=== PATIENT | male | born 1945 ===

== ENCOUNTER 2020-07-01 12:04 | Inpatient (IN) | payer MEDICARE ==
[2020-07-01] MEDS ORDERED: LORazepam 2 MG/ML VIAL IM PRN (12:11)
[2020-07-01] MEDS ORDERED: HALOPERIDOL LACTATE 5 MG/1 ML INJ IM PRN (12:11)
[2020-07-01] MEDS ORDERED: MELATONIN 5 MG TAB PO PRN (12:11)
[2020-07-01] MEDS: traZODone 50 MG TAB PO SCH (21:45)
--- NOTE | 2020-07-02 07:47 | History and Physical Report ---
GP History & Physical - History of Present Illness Date of admission: 07/01/20 Date of Examination: 07/02/20 Reason for Admission: Impaired reality testing, Psychopathology interference History of Present Illness: Nurse Admisison Note: Precipitating behavior that initiated intake and admission: [ Pt having a loaded gun and pointing it after watching TV and started saying "someone is stealing in this house. Per referral source, pt stated "white supremacist are after me." Per to referral source, pt was seen last week by his Psychiatrist when adjustment was made to his medication and has since been acting strangely with increasingly paranoia behavior, talking to self or sister that does present, and became extremely agitated.] Pt sitting calmly in the activity room. Was cooperative to be assessed. A&OX4 upon assessment, but remains paranoid as he refused to sign anything. Denies any attempt to hurt . "I was just taking care of my stuff." Denies SI or HI. No hallucinations observed. Scored 27 om Mini Mental Exam. Gait unstable and pt ambulates with cane, w/c offered and accepted while cane is kept away for safety. Unexplained multiple bruise noted to bilateral forearms and left abdomen. Denies pain. Pt noted with barrel chest and trunk asymmetric with LE. Bilateral toes are deformed with wound noted to left second toe covered with bandage. Reports hx/o scoliosis with surgical repair "several years ago." Old scar stretched from the back of the nect to lumbar area noted. Pt also has knee replacement to right knee with a noticeable scar in place. Pt presents with full lower and upper dentures. VS stable. No acute distress observed and none reported. Will continue to monitor closely for safety. HPI Patient is a retired male who resides with and has children with non specific psychiatric diagnosis and past Medical History of rheumatoid Arthritis, DM and HTN who presented to [facility] ED by EMS with chief complaints of paranoid behavior and endangerment of partner, as a he was found wandering Gun at home, says he was suspecting white supremacist. Patient kept assuming someone was at home. According to [facility] Nurse Collateral information, Pt has been having psychiatric issues, was recently seen by his psychiatrist, a recent medication starting with L was started and since starting the medication, his paranoid has worsened with strange bizzare behaviors at home. According to the patient, he reports not remembering much about the day he was taking to the hospital but admit to having issues with at home, whcih were age related issues since kids had moved out and they were trying to figure where to move to because they have been having lots of difficulties adjusting to the new norm, he claims it was never physical and that was also part of why they were both seeing a psychiatrist. He denies wandering Gun, says he only wanted to clean it and had no intention of using it or saw anyone at home. Prior to walking in room, I found patient talking to self and looking towards the ceiling, pt claims its because he has not brushed his teeth. PAST PSYCHIATRIC HISTORY: Diagnoses: Unknown diagnosis Suicide attempts or Self-harm behavior: None reported Prior psychiatric hospitalizations: none reported Substance Abuse history: None reported Previous psychiatric medications tried: Yes, meds unknown Outpatient treatment: Yes PAST MEDICAL HISTORY: DM, HTN and RA Family Psychiatric History: None reported or documented SOCIAL HISTORY Marital Status: Living Arrangements: with Employment Status: retired Access to guns/weapons: Yes Education: College History of Abuse: none reported Legal History: none reported REVIEW OF SYSTEMS ROS cannot be reliably obtained from the patient due to her confusion and somnolence. REVIEW OF SYSTEMS Constitutional: Negative for weight loss ENT: Negative for stridor Respiratory: Negative for cough or hemoptysis All other systems reviewed and are negative MENTAL STATUS EXAMINATION General Appearance and Behavior: Age appropriate, good hygiene, wearing appropriate clothes, lying in bed, good eye contact, cooperative polite with questioning. Cooperation: Participating/engaged Psychomotor Behavior: unremarkable and within normal limits Mood: Good Affect and affective range: decreased range Thought Process: Illogical, Thought Content: Hallucinations Phobia and Paranoid Speech: Normal volume, Regular rate and rhythm Intellectual Functioning: Average Suicidal Ideation: Denies SI Homicidal Ideation: Denies HI Impulse Control: Impaired Insight and Judgment: Limited insight and judgment Memory:Prospective memory impaired Attention: Normal Orientation: Alert, oriented, Assessment and Plan - Psychiatric problem (1) Schizophrenia, paranoid type Current Visit: Yes Status: Acute Treatment Plan Stated on Olazanpine and Valproate 125 mg BID Patient will be admitted for inpatient psychiatric evaluation, medication adjustment and close monitoring The patient's behavior, mood, sleep and appetite will be closely monitored. Patient will be enrolled in individual and group therapeutic sessions and encouraged to attend. Patient will be provided with a safe and structured environment. Patient's physical health needs will be addressed by the Hospitalist. Hospitalist Consulted Labs including CBC, CMP, Lipid profile and Hemoglobin A1C ordered Social Assessment will be completed and the Cloud Systems Administrator will work with patient and family to ensure a suitable and safe disposition Medication adjustment will be made as clinically indicated Usual Wellness Catholic/Preservation: - Start Trazodone 50 mg po QHS & 50 mg po QHS PRN between 10 PM & 2 AM for insomnia - Start Melatonin 5 mg po QHS to promote circadian rhythm - Start [place]-3 for brain health, reduce impulsivity, and as adjunctive treatment for mood disorder, continue upon discharge given overall benefits. - Start B1 prophylaxis with 200 mg po for 5 days The patient agreed on the treatment plan, understood the risk, benefit, alternative treatment, potential consequence of no treatment, and gave informed consent. Initial Certification Inpatient psych services: I certify that the inpatient psychiatric services are required for treatment that could reasonably be expected to improve the patient's condition. Estimated days: 7 Post hospital care: primary care provider, psychiatric provider Legal Status: Voluntary Patient Problems: Current Active Problems Schizophrenia, paranoid type (Acute) Reaction to Hospitalization: Accepting Medications and Allergies Allergies Allergy/AdvReac Type Severity Reaction Status Date / Time hydroxyzine [From Vistaril] Allergy Unknown Unverified 07/01/20 13:17 meperidine Allergy Unknown Unverified 07/01/20 13:14 Home Medications Medication Instructions Recorded Confirmed Last Taken Type Aspirin EC 81 mg PO BID 07/01/20 07/01/20 Unknown History Duloxetine HCl 60 mg PO DAILY 07/01/20 07/01/20 Unknown History Folic Acid 1 mg PO DAILY 07/01/20 07/01/20 Unknown History Insulin Glargine 20 units SQ QHS 07/01/20 07/01/20 Unknown History Levothyroxine Sodium 112 mcg PO DAILY 07/01/20 07/01/20 Unknown History Meloxicam 15 mg PO DAILY 07/01/20 07/01/20 Unknown History Morphine Sulfate 15 mg PO QID 07/01/20 07/01/20 Unknown History Prednisone [predniSONE (Alana) ER 4 mg PO QDAY 07/01/20 07/01/20 Unknown History TAB] Prevacid 30 mg PO DAILY 07/01/20 07/01/20 Unknown History Quetiapine Fumarate 25 mg PO DAILY 07/01/20 07/01/20 Unknown History Sennosides 8.6 mg PO DAILY 07/01/20 07/01/20 Unknown History Xanax TAB 0.5 mg PO TID 07/01/20 07/01/20 Unknown History Active Meds: Active Medications Haloperidol Lactate (Haldol) 5 mg IM ONCE PRN PRN Reason: Agitation Lorazepam (Ativan) 1 mg IM Q4HR PRN PRN Reason: Agitation Melatonin (Melatonin) 5 mg PO QHS PRN PRN Reason: Sleep Trazodone HCl (Desyrel) 50 mg PO QHS [facility] Last Admin: 07/01/20 21:45 Dose: 50 mg Documented by: Results - Results Labs/Vitals: Laboratory Last Values POC Glucose 122 (70-105) H 07/01/20 20:12 Last Vital Signs Temp 97.4 F L 07/01/20 22:00 Pulse 71 07/01/20 22:00 Resp 18 07/01/20 22:00 BP 112/75 07/01/20 22:00 Pulse Ox 94 07/01/20 22:00 Physical Examination - Constitutional Vitals: Vital Signs Temp Pulse Resp BP Pulse Ox 97.4 F L 71 18 112/75 94 07/01/20 22:00 07/01/20 22:00 07/01/20 22:00 07/01/20 22:00 07/01/20 22:00 Temperature -Last 24 Hours Temperature 97.4 F Mental Status Exam - Vital signs Last Vital Signs Temp 97.4 F L 07/01/20 22:00 Pulse 71 07/01/20 22:00 Resp 18 07/01/20 22:00 BP 112/75 07/01/20 22:00 Pulse Ox 94 07/01/20 22:00 Assessment and Plan - Psychiatric problem (1) Schizophrenia, paranoid type Current Visit: Yes Status: Acute Physician Certification - Certification Statement Physician Certification Statement: This is an acknowledgement statement that SHANEKA JEAN-BAPTISTE is a 74 year old M who requires inpatient psychiatric admission for treatment which could reasonably be expected to improve the patient's condition for Estimated period of time patient will need to remain in the hospital: [ ] Plan for post-hospital care: [ ]
[2020-07-02 09:54] LABS: Basophils # (Auto) 0.1 K/mm3 (0.0-0.1); Basophils % (Auto) 0.5 % (0.0-1.8); Eosinophils % (Auto) 0.3 % (0.0-4.3); Hematocrit 44.5 % (35.5-45.6); Hemoglobin 15.1 gm/dl (11.8-15.2); Lymphocytes # (Auto) 1.7 K/mm3 (1.2-5.4); Lymphocytes % (Auto) 15.5 % (13.4-35.0); Mean Corpuscular HGB Conc 34 % (32-34); Mean Corpuscular Volume 102 fl (84-94); Monocytes # (Auto) 0.6 K/mm3 (0.0-0.8); Monocytes % (Auto) 5.4 % (0.0-7.3); Platelet Count 170 K/mm3 (140-440); Red Blood Count 4.38 M/mm3 (3.65-5.03); Red Cell Distribution Width 14.3 % (13.2-15.2)
[2020-07-02 10:13] LABS: Alanine Aminotransferase 21 units/L (7-56); Albumin 4.2 g/dL (3.9-5); BUN/Creatinine Ratio 28; Blood Urea Nitrogen 25 mg/dL (9-20); Calcium 9.4 mg/dL (8.4-10.2); HDL Cholesterol 75 mg/dL (40-59); Hemolysis Index 8; LDL Cholesterol,Direct 80 mg/dL (50-130)
[2020-07-02] MEDS: VALPROIC ACID 250 MG/5 ML ORAL LIQD PO SCH ×2 (10:44→21:57)
--- NOTE | 2020-07-02 15:58 | Consultation ---
History of Present Illness - Reason for Consult Consult date: 07/02/20 Medical management - History of Present Illness HPI as per psychiatry Patient is a retired male who resides with and has children with non specific psychiatric diagnosis and past Medical History of rh eumatoid Arthritis, DM and HTN who presented to [facility] ED by EMS with chief complaints of paranoid behavior and endangerment of partner, as a he was found wandering Gun at home, says he was suspecting white supremacist. Patient kept assuming someone was at home. According to [facility] Nurse Collateral information, Pt has been having psychiatric issues, was recently seen by his psychiatrist, a recent medication starting with L was started and since starting the medication, his paranoid has worsened with strange bizzare behaviors at home. According to the patient, he reports not remembering much about the day he was taking to the hospital but admit to having issues with at home, whcih were age related issues since kids had moved out and they were trying to figure where to move to because they have been having lots of difficulties adjusting to the new norm, he claims it was never physical and that was also part of why they were both seeing a psychiatrist. He denies wandering Gun, says he only wanted to clean it and had no intention of using it or saw anyone at home. I saw and examined patient as bedside. He does not know list of his medications. Past History Past Medical History: diabetes, hypertension, other (RA) Medications and Allergies Allergies Allergy/AdvReac Type Severity Reaction Status Date / Time hydroxyzine [From Vistaril] Allergy Unknown Unverified 07/01/20 13:17 meperidine Allergy Unknown Unverified 07/01/20 13:14 Home Medications Medication Instructions Recorded Confirmed Last Taken Type Aspirin EC 81 mg PO BID 07/01/20 07/01/20 Unknown History Duloxetine HCl 60 mg PO DAILY 07/01/20 07/01/20 Unknown History Folic Acid 1 mg PO DAILY 07/01/20 07/01/20 Unknown History Insulin Glargine 20 units SQ QHS 07/01/20 07/01/20 Unknown History Levothyroxine Sodium 112 mcg PO DAILY 07/01/20 07/01/20 Unknown History Meloxicam 15 mg PO DAILY 07/01/20 07/01/20 Unknown History Morphine Sulfate 15 mg PO QID 07/01/20 07/01/20 Unknown History Prednisone [predniSONE (Alana) ER 4 mg PO QDAY 07/01/20 07/01/20 Unknown History TAB] Prevacid 30 mg PO DAILY 07/01/20 07/01/20 Unknown History Quetiapine Fumarate 25 mg PO DAILY 07/01/20 07/01/20 Unknown History Sennosides 8.6 mg PO DAILY 07/01/20 07/01/20 Unknown History Xanax TAB 0.5 mg PO TID 07/01/20 07/01/20 Unknown History Active Meds: Active Medications Haloperidol Lactate (Haldol) 5 mg IM ONCE PRN PRN Reason: Agitation Lorazepam (Ativan) 1 mg IM Q4HR PRN PRN Reason: Agitation Melatonin (Melatonin) 5 mg PO QHS PRN PRN Reason: Sleep Olanzapine (Zyprexa) 5 mg PO QHS [facility] Trazodone HCl (Desyrel) 50 mg PO QHS [facility] Last Admin: 07/01/20 21:45 Dose: 50 mg Documented by: Valproic Acid (Depakene Liq) 125 mg PO BID [facility] Last Admin: 07/02/20 10:44 Dose: 125 mg Documented by: Review of Systems All systems: negative (None) Exam - Constitutional Vitals: Temp Pulse Resp BP Pulse Ox 97.5 F L 113 H 18 112/61 88 07/02/20 07:27 07/02/20 07:27 07/02/20 07:27 07/02/20 07:27 07/02/20 07:27 General appearance: Present: no acute distress, well-nourished - EENT Eyes: Present: PERRL ENT: hearing intact, clear oral mucosa - Neck Neck: Present: supple, normal ROM - Respiratory Respiratory effort: normal Respiratory: bilateral: CTA - Cardiovascular Heart Sounds: Present: S1 & S2. Absent: rub, click - Extremities Extremities: pulses symmetrical, No edema Peripheral Pulses: within normal limits - Abdominal General gastrointestinal: Present: soft, non-tender, non-distended, normal bowel sounds Male genitourinary: Present: normal - Integumentary Integumentary: Present: clear, warm, dry - Musculoskeletal Musculoskeletal: gait normal, strength equal bilaterally - Psychiatric Psychiatric: appropriate mood/affect, intact judgment & insight - Neurologic Neurologic: CNII-XII intact, moves all extremities Results - Labs CBC & Chem 7: 07/02/20 09:40 07/02/20 09:40 Labs: Abnormal lab results 07/01/20 07/02/20 07/02/20 Range/Units 20:12 08:01 09:40 MCV 102 H (84-94) fl MCH 34 H (28-32) pg Seg Neutrophils % 78.3 H (40.0-70.0) % Seg Neutrophils # 8.4 H (1.8-7.7) K/mm3 Chloride (98-107) mmol/L Carbon Dioxide (22-30) mmol/L BUN (9-20) mg/dL Glucose (75-100) mg/dL POC Glucose 122 H 154 H (70-105) Hemoglobin A1c (4-6) % Total Bilirubin (0.1-1.2) mg/dL Total Protein (6.3-8.2) g/dL HDL Cholesterol (40-59) mg/dL TSH (0.270-4.200) mlU/mL Free T4 (0.76-1.46) ng/dL 07/02/20 07/02/20 07/02/20 Range/Units 09:40 09:40 09:40 MCV (84-94) fl MCH (28-32) pg Seg Neutrophils % (40.0-70.0) % Seg Neutrophils # (1.8-7.7) K/mm3 Chloride 95.6 L (98-107) mmol/L Carbon Dioxide 20 L (22-30) mmol/L BUN 25 H (9-20) mg/dL Glucose 264 H (75-100) mg/dL POC Glucose (70-105) Hemoglobin A1c 9.5 H (4-6) % Total Bilirubin 1.30 H (0.1-1.2) mg/dL Total Protein 6.0 L (6.3-8.2) g/dL HDL Cholesterol 75 H (40-59) mg/dL TSH 0.045 L (0.270-4.200) mlU/mL Free T4 (0.76-1.46) ng/dL 07/02/20 07/02/20 Range/Units 10:46 11:58 MCV (84-94) fl MCH (28-32) pg Seg Neutrophils % (40.0-70.0) % Seg Neutrophils # (1.8-7.7) K/mm3 Chloride (98-107) mmol/L Carbon Dioxide (22-30) mmol/L BUN (9-20) mg/dL Glucose (75-100) mg/dL POC Glucose 175 H (70-105) Hemoglobin A1c (4-6) % Total Bilirubin (0.1-1.2) mg/dL Total Protein (6.3-8.2) g/dL HDL Cholesterol (40-59) mg/dL TSH (0.270-4.200) mlU/mL Free T4 1.75 H (0.76-1.46) ng/dL Assessment and Plan - Patient Problems (1) Schizophrenia, paranoid type Current Visit: Yes Status: Acute Plan to address problem: Management as per primary team (2) Hypothyroidism (acquired) Current Visit: Yes Status: Acute Plan to address problem: Continue synthroid. Check TSH (3) Diabetes mellitus Current Visit: Yes Status: Acute Plan to address problem: Start sliding scale insulin Check HbA1c (4) Rheumatoid arthritis Current Visit: Yes Status: Acute Plan to address problem: Continue low dose prednisone for now. 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
[2020-07-02] MEDS ORDERED: DEXTROSE 50% IN WATER (25GM) 50 ML SYRINGE IV PRN (16:04)
[2020-07-02] MEDS: INSULIN LISPRO 100 UNIT/ML VIAL 3 mL SUB-Q SCH (16:39)
[2020-07-02] MEDS: traZODone 50 MG TAB PO SCH (21:58)
[2020-07-02] MEDS: ASPIRIN EC 81 MG TAB PO SCH (21:58)
[2020-07-03] MEDS ORDERED: LEVOTHYROXINE 150 MCG TAB PO SCH (06:00)
[2020-07-03] MEDS: LEVOTHYROXINE 112 MCG TAB PO SCH (06:27)
--- NOTE | 2020-07-03 08:25 | Progress Note ---
Subjective Date of service: 07/03/20 Principal diagnosis: Schizophrenia Subjective Comment: The patient's medical record was reviewed and the patient's progress was discussed with the nursing staff. The nurse note states the patient spent last evening the patient spent the evening in bed. He presents as sad and depressed. He is pleasant on approach. The patient denies si/hi/ah/vh. During my interview with the patient this morning, he is lying in bed. He is a/o x 2. He says he was admitted into the hospital for "observation." The patient says "I was having problems with my ." He then says "it was just a typical fight. But I wasn't that upset." He denies SI/HI. He also denies hallucinations of any kind. When walking back by the room, I observed the patient talking to himself. When going in the room to see who the patient was talking to, he presented as paranoid. The patient seemed jumpy and asked "was someone here earlier." Reason for continued inpatient treatment: The patient presents as depressed, having hallucinations and episodes of paranoia that needs inpatient treatment due to failure of outpatient stabilization. REVIEW OF SYSTEMS Constitutional: Negative for weight loss ENT: Negative for stridor Respiratory: Negative for cough or hemoptysis All other systems reviewed and are negative MENTAL STATUS EXAMINATION General Appearance and Behavior: Age appropriate, good hygiene, wearing a ppropriate clothes, lying in bed, good eye contact, cooperative polite with questioning. Cooperation: Participating/engaged Psychomotor Behavior: unremarkable and within normal limits Mood: "okay" Affect and affective range: decreased range Thought Process: Illogical, Thought Content: Hallucinations Speech: Normal volume, Regular rate and rhythm Intellectual Functioning: Average Suicidal Ideation: Denies SI Homicidal Ideation: Denies HI Hallucinations: Yes, auditory Delusions: None elicited Impulse Control: Impaired Insight and Judgment: Limited insight and judgment Memory:Prospective memory impaired Attention: Normal Orientation: Alert, oriented, Assessment and Plan - Psychiatric problem (1) Schizophrenia, paranoid type Current Visit: Yes Status: Acute Treatment Plan Stated on Olazanpine and Valproate 125 mg BID Patient will be admitted for inpatient psychiatric evaluation, medication adjustment and close monitoring The patient's behavior, mood, sleep and appetite will be closely monitored. Patient will be enrolled in individual and group therapeutic sessions and encouraged to attend. Patient will be provided with a safe and structured environment. Patient's physical health needs will be addressed by the Hospitalist. Hospitalist Consulted Labs including CBC, CMP, Lipid profile and Hemoglobin A1C ordered Social Assessment will be completed and the Online Media Director will work with patient and family to ensure a suitable and safe disposition Medication adjustment will be made as clinically indicated Increased Olanzapine 7.5mg po daily Usual Wellness Spiritism/Preservation: - Start Trazodone 50 mg po QHS & 50 mg po QHS PRN between 10 PM & 2 AM for insomnia - Start Melatonin 5 mg po QHS to promote circadian rhythm - Start [place]-3 for brain health, reduce impulsivity, and as adjunctive treatm ent for mood disorder, continue upon discharge given overall benefits. - Start B1 prophylaxis with 200 mg po for 5 days The patient agreed on the treatment plan, understood the risk, benefit, altern ative treatment, potential consequence of no treatment, and gave informed consent. Estimated days: 5 Post hospital care: primary care provider, psychiatric provider Medications and Allergies Allergies Allergy/AdvReac Type Severity Reaction Status Date / Time hydroxyzine [From Vistaril] Allergy Unknown Unverified 07/01/20 13:17 meperidine Allergy Unknown Unverified 07/01/20 13:14 Home Medications Medication Instructions Recorded Confirmed Last Taken Type Aspirin EC 81 mg PO BID 07/01/20 07/01/20 Unknown History Duloxetine HCl 60 mg PO DAILY 07/01/20 07/01/20 Unknown History Folic Acid 1 mg PO DAILY 07/01/20 07/01/20 Unknown History Insulin Glargine 20 units SQ QHS 07/01/20 07/01/20 Unknown History Levothyroxine Sodium 112 mcg PO DAILY 07/01/20 07/01/20 Unknown History Meloxicam 15 mg PO DAILY 07/01/20 07/01/20 Unknown History Morphine Sulfate 15 mg PO QID 07/01/20 07/01/20 Unknown History Prednisone [predniSONE (Alana) ER 4 mg PO QDAY 07/01/20 07/01/20 Unknown History TAB] Prevacid 30 mg PO DAILY 07/01/20 07/01/20 Unknown History Quetiapine Fumarate 25 mg PO DAILY 07/01/20 07/01/20 Unknown History Sennosides 8.6 mg PO DAILY 07/01/20 07/01/20 Unknown History Xanax TAB 0.5 mg PO TID 07/01/20 07/01/20 Unknown History Active Meds: Active Medications Aspirin (Halfprin Ec) 81 mg PO BID [facility] Last Admin: 07/02/20 21:58 Dose: 81 mg Documented by: Dextrose (D50w (25gm) Syringe) 50 ml IV Q30MIN PRN; Protocol PRN Reason: Hypoglycemia Haloperidol Lactate (Haldol) 5 mg IM ONCE PRN PRN Reason: Agitation Insulin Human Lispro (Humalog) 0 unit SUB-Q AC [facility]; Protocol Last Admin: 07/02/20 16:39 Dose: 4 unit Documented by: Levothyroxine Sodium (Synthroid) 112 mcg PO DAILY@0600 [facility] Last Admin: 07/03/20 06:27 Dose: 112 mcg Documented by: Lorazepam (Ativan) 1 mg IM Q4HR PRN PRN Reason: Agitation Melatonin (Melatonin) 5 mg PO QHS PRN PRN Reason: Sleep Olanzapine (Zyprexa) 5 mg PO QHS [facility] Last Admin: 07/02/20 21:58 Dose: 5 mg Documented by: Prednisone (Prednisone) 4 mg FEEDTUBE QDAY [facility] Trazodone HCl (Desyrel) 50 mg PO QHS [facility] Last Admin: 07/02/20 21:58 Dose: 50 mg Documented by: Valproic Acid (Depakene Liq) 125 mg PO BID [facility] Last Admin: 07/02/20 21:57 Dose: 125 mg Documented by: Results - Results Labs/Vitals: Laboratory Last Values WBC 10.7 K/mm3 (4.5-11.0) 07/02/20 09:40 RBC 4.38 M/mm3 (3.65-5.03) 07/02/20 09:40 Hgb 15.1 gm/dl (11.8-15.2) 07/02/20 09:40 Hct 44.5 % (35.5-45.6) 07/02/20 09:40 MCV 102 fl (84-94) H 07/02/20 09:40 MCH 34 pg (28-32) H 07/02/20 09:40 MCHC 34 % (32-34) 07/02/20 09:40 RDW 14.3 % (13.2-15.2) 07/02/20 09:40 Plt Count 170 K/mm3 (140-440) 07/02/20 09:40 Lymph % (Auto) 15.5 % (13.4-35.0) 07/02/20 09:40 [place] % (Auto) 5.4 % (0.0-7.3) 07/02/20 09:40 Eos % (Auto) 0.3 % (0.0-4.3) 07/02/20 09:40 Baso % (Auto) 0.5 % (0.0-1.8) 07/02/20 09:40 Lymph # (Auto) 1.7 K/mm3 (1.2-5.4) 07/02/20 09:40 [place] # (Auto) 0.6 K/mm3 (0.0-0.8) 07/02/20 09:40 Eos # (Auto) 0.0 K/mm3 (0.0-0.4) 07/02/20 09:40 Baso # (Auto) 0.1 K/mm3 (0.0-0.1) 07/02/20 09:40 Seg Neutrophils % 78.3 % (40.0-70.0) H 07/02/20 09:40 Seg Neutrophils # 8.4 K/mm3 (1.8-7.7) H 07/02/20 09:40 Sodium 137 mmol/L (137-145) 07/02/20 09:40 Potassium 4.8 mmol/L (3.6-5.0) 07/02/20 09:40 Chloride 95.6 mmol/L (98-107) L 07/02/20 09:40 Carbon Dioxide 20 mmol/L (22-30) L 07/02/20 09:40 Anion Gap 26 mmol/L 07/02/20 09:40 BUN 25 mg/dL (9-20) H 07/02/20 09:40 Creatinine 0.9 mg/dL (0.8-1.3) 07/02/20 09:40 Estimated GFR > 60 ml/min 07/02/20 09:40 BUN/Creatinine Ratio 28 % 07/02/20 09:40 Glucose 264 mg/dL (75-100) H 07/02/20 09:40 POC Glucose 254 (70-105) H 07/03/20 07:27 Hemoglobin A1c 9.5 % (4-6) H 07/02/20 09:40 Calcium 9.4 mg/dL (8.4-10.2) 07/02/20 09:40 Total Bilirubin 1.30 mg/dL (0.1-1.2) H 07/02/20 09:40 AST 32 units/L (5-40) 07/02/20 09:40 ALT 21 units/L (7-56) 07/02/20 09:40 Alkaline Phosphatase 85 units/L (35-129) 07/02/20 09:40 Total Protein 6.0 g/dL (6.3-8.2) L 07/02/20 09:40 Albumin 4.2 g/dL (3.9-5) 07/02/20 09:40 Albumin/Globulin Ratio 2.3 % 07/02/20 09:40 Triglycerides 120 mg/dL (2-149) 07/02/20 09:40 Cholesterol 165 mg/dL (50-199) 07/02/20 09:40 LDL Cholesterol Direct 80 mg/dL (50-130) 07/02/20 09:40 HDL Cholesterol 75 mg/dL (40-59) H 07/02/20 09:40 Cholesterol/HDL Ratio 2.20 % 07/02/20 09:40 TSH 0.045 mlU/mL (0.270-4.200) L 07/02/20 09:40 Free T4 1.75 ng/dL (0.76-1.46) H 07/02/20 10:46 Last Vital Signs Temp 98.1 F 07/02/20 20:51 Pulse 100 H 07/02/20 19:21 Resp 18 07/02/20 20:51 BP 131/70 07/02/20 19:21 Pulse Ox 95 07/02/20 19:21
[2020-07-03] MEDS: INSULIN LISPRO 100 UNIT/ML VIAL 3 mL SUB-Q SCH ×3 (09:04→16:35)
[2020-07-03] MEDS: ASPIRIN EC 81 MG TAB PO SCH (09:57)
[2020-07-03] MEDS: VALPROIC ACID 250 MG/5 ML ORAL LIQD PO SCH ×2 (09:57→21:39)
[2020-07-03] MEDS: predniSONE 5 MG/5 ML ORAL LIQUID FEEDTUBE SCH (09:57)
[2020-07-03] MEDS ORDERED: predniSONE 5 MG TAB PO SCH (10:00)
[2020-07-03 15:13] LABS: ABG Base Excess -8.2 mmol/L (-2.0-3.0); ABG HCO3 15.2 mmol/L (20.0-26.0); ABG Methemoglobin 0.6 % (0.0-1.5); ABG Oxygen Saturation 98.7 % (95.0-99.0); ABG PCO2 26.4 mm Hg; ABG PH 7.378 pH Units (7.350-7.450)
[2020-07-03] MEDS ORDERED: INSULIN LISPRO 100 UNIT/ML VIAL 3 mL SUB-Q ONE (15:15)
--- NOTE | 2020-07-03 15:29 | Progress Note ---
Assessment and Plan - Patient Problems (1) Schizophrenia, paranoid type Current Visit: Yes Status: Acute Plan to address problem: Management as per primary team (2) Hypothyroidism (acquired) Current Visit: Yes Status: Acute Plan to address problem: Continue synthroid. Check TSH (3) Diabetes mellitus Current Visit: Yes Status: Acute Plan to address problem: Continue sliding scale insulin Added lantus Check HbA1c (4) Rheumatoid arthritis Current Visit: Yes Status: Acute Plan to address problem: Continue low dose prednisone for now. Methotrexate weekly (5) HTN (hypertension) Current Visit: Yes Status: Acute Plan to address problem: Lisinopril 5 mg daily (6) Acute respiratory failure with hypoxia Current Visit: Yes Status: Acute Plan to address problem: Continue oxygen supplementation Chest xray ordered. Check labs - cmp, ddimer History Interval history: Patient got slightly short of breath this PM, Ordered chest xray, ABG, CBC, CMP. Blood glucose is elevated. Added lantus. Called spouse and got his home medications. Hospitalist Physical - Constitutional Vitals: Temp Pulse Resp BP Pulse Ox 98.1 F 100 H 18 131/70 95 07/02/20 20:51 07/02/20 19:21 07/02/20 20:51 07/02/20 19:21 07/02/20 19:21 General appearance: Present: no acute distress, well-nourished - EENT Eyes: Present: PERRL - Respiratory Respiratory: bilateral: diminished - Cardiovascular Rhythm: regular Heart Sounds: Present: S1 & S2 - Abdominal General gastrointestinal: soft, non-tender, non-distended, normal bowel sounds - Psychiatric Psychiatric: appropriate mood/affect - Neurologic Neurologic: CNII-XII intact Results - Labs CBC & Chem 7: 07/02/20 09:40 07/02/20 09:40 Labs: Laboratory Last Values WBC 10.7 K/mm3 (4.5-11.0) 07/02/20 09:40 RBC 4.38 M/mm3 (3.65-5.03) 07/02/20 09:40 Hgb 15.1 gm/dl (11.8-15.2) 07/02/20 09:40 Hct 44.5 % (35.5-45.6) 07/02/20 09:40 MCV 102 fl (84-94) H 07/02/20 09:40 MCH 34 pg (28-32) H 07/02/20 09:40 MCHC 34 % (32-34) 07/02/20 09:40 RDW 14.3 % (13.2-15.2) 07/02/20 09:40 Plt Count 170 K/mm3 (140-440) 07/02/20 09:40 Lymph % (Auto) 15.5 % (13.4-35.0) 07/02/20 09:40 [place] % (Auto) 5.4 % (0.0-7.3) 07/02/20 09:40 Eos % (Auto) 0.3 % (0.0-4.3) 07/02/20 09:40 Baso % (Auto) 0.5 % (0.0-1.8) 07/02/20 09:40 Lymph # (Auto) 1.7 K/mm3 (1.2-5.4) 07/02/20 09:40 [place] # (Auto) 0.6 K/mm3 (0.0-0.8) 07/02/20 09:40 Eos # (Auto) 0.0 K/mm3 (0.0-0.4) 07/02/20 09:40 Baso # (Auto) 0.1 K/mm3 (0.0-0.1) 07/02/20 09:40 Seg Neutrophils % 78.3 % (40.0-70.0) H 07/02/20 09:40 Seg Neutrophils # 8.4 K/mm3 (1.8-7.7) H 07/02/20 09:40 ABG pH 7.378 pH Units (7.350-7.450) 07/03/20 14:35 ABG pCO2 26.4 mm Hg 07/03/20 14:35 ABG pO2 137.0 mm Hg (80.0-90.0) H 07/03/20 14:35 ABG HCO3 15.2 mmol/L (20.0-26.0) L 07/03/20 14:35 ABG O2 Saturation 98.7 % (95.0-99.0) 07/03/20 14:35 ABG O2 Content 19.9 (0.0-44) 07/03/20 14:35 ABG Base Excess -8.2 mmol/L (-2.0-3.0) L 07/03/20 14:35 ABG Hemoglobin 14.5 gm/dl (14.0-18.0) 07/03/20 14:35 ABG Carboxyhemoglobin 1.5 % (0.0-5.0) 07/03/20 14:35 ABG Methemoglobin 0.6 % (0.0-1.5) 07/03/20 14:35 Oxyhemoglobin 96.5 % (95.0-99.0) 07/03/20 14:35 FiO2 40 % 07/03/20 14:35 Sodium 137 mmol/L (137-145) 07/02/20 09:40 Potassium 4.8 mmol/L (3.6-5.0) 07/02/20 09:40 Chloride 95.6 mmol/L (98-107) L 07/02/20 09:40 Carbon Dioxide 20 mmol/L (22-30) L 07/02/20 09:40 Anion Gap 26 mmol/L 07/02/20 09:40 BUN 25 mg/dL (9-20) H 07/02/20 09:40 Creatinine 0.9 mg/dL (0.8-1.3) 07/02/20 09:40 Estimated GFR > 60 ml/min 07/02/20 09:40 BUN/Creatinine Ratio 28 % 07/02/20 09:40 Glucose 264 mg/dL (75-100) H 07/02/20 09:40 POC Glucose 407 (70-105) H 07/03/20 13:56 Hemoglobin A1c 9.5 % (4-6) H 07/02/20 09:40 Calcium 9.4 mg/dL (8.4-10.2) 07/02/20 09:40 Total Bilirubin 1.30 mg/dL (0.1-1.2) H 07/02/20 09:40 AST 32 units/L (5-40) 07/02/20 09:40 ALT 21 units/L (7-56) 07/02/20 09:40 Alkaline Phosphatase 85 units/L (35-129) 07/02/20 09:40 Total Protein 6.0 g/dL (6.3-8.2) L 07/02/20 09:40 Albumin 4.2 g/dL (3.9-5) 07/02/20 09:40 Albumin/Globulin Ratio 2.3 % 07/02/20 09:40 Triglycerides 120 mg/dL (2-149) 07/02/20 09:40 Cholesterol 165 mg/dL (50-199) 07/02/20 09:40 LDL Cholesterol Direct 80 mg/dL (50-130) 07/02/20 09:40 HDL Cholesterol 75 mg/dL (40-59) H 07/02/20 09:40 Cholesterol/HDL Ratio 2.20 % 07/02/20 09:40 TSH 0.045 mlU/mL (0.270-4.200) L 07/02/20 09:40 Free T4 1.75 ng/dL (0.76-1.46) H 07/02/20 10:46 Hollis/IV: Voiding Method Toilet Active Medications - Current Medications Current Medications: Generic Name Dose Route Start Last Admin Trade Name Freq PRN Reason Stop Dose Admin Aspirin 81 mg 07/04/20 10:00 Halfprin Ec PO QDAY [facility]LA Dextrose 50 ml 07/02/20 16:04 D50w (25gm) Syringe IV Q30MIN PRN Hypoglycemia Protocol Haloperidol Lactate 5 mg 07/01/20 12:11 Haldol IM ONCE PRN Agitation Insulin Glargine 20 units 07/03/20 22:00 Lantus SUB-Q QHS [facility]LA Insulin Human Lispro 0 unit 07/02/20 16:30 07/03/20 11:41 Humalog SUB-Q 8 unit AC [facility]LA Administration Protocol Levothyroxine Sodium 112 mcg 07/03/20 06:00 07/03/20 06:27 Synthroid PO 112 mcg DAILY@0600 [facility]LA Administration Lorazepam 1 mg 07/01/20 12:11 Ativan IM Q4HR PRN Agitation Melatonin 5 mg 07/01/20 12:11 Melatonin PO QHS PRN Sleep Olanzapine 7.5 mg 07/03/20 10:00 07/03/20 10:00 Zyprexa PO 7.5 mg QDAY [facility]LA Administration Prednisone 4 mg 07/03/20 10:00 07/03/20 09:57 Prednisone FEEDTUBE 4 mg QDAY [facility]LA Administration Trazodone HCl 50 mg 07/01/20 22:00 07/02/20 21:58 Desyrel PO 50 mg QHS [facility]LA Administration Valproic Acid 125 mg 07/02/20 10:00 07/03/20 09:57 Depakene Liq PO 125 mg BID NYLA Administration
[2020-07-03 16:04] LABS: Hematocrit 45.2 % (35.5-45.6); Hemoglobin 15.1 gm/dl (11.8-15.2); Mean Corpuscular HGB Conc 33 % (32-34); Mean Corpuscular Volume 103 fl (84-94); Platelet Count 175 K/mm3 (140-440); Red Blood Count 4.41 M/mm3 (3.65-5.03); Red Cell Distribution Width 14.5 % (13.2-15.2)
--- NOTE | 2020-07-03 16:24 | XRay Report ---
CHEST 1 VIEW 3:58 PM INDICATION / CLINICAL INFORMATION: Shortness of breath. COMPARISON: None available. FINDINGS: SUPPORT DEVICES: None. HEART / MEDIASTINUM: The heart size and pulmonary vasculature are normal. There is calcification in t he aortic arch without aneurysm. LUNGS / PLEURA: There is mild linear scarring/subsegmental atelectasis in the left mid to lower lung laterally. The right lung is clear. No pneumothorax. ADDITIONAL FINDINGS: A [place] shyanne transfixes a moderate thoracic dextroscoliosis. 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 There are moderate degenerative changes involving the left glenohumeral joint. IMPRESSION: Mild subsegmental atelectasis/scarring in the left mid to lower lung. Signer Name: Benito Weber MD Signed: 07/03/2020 4:19 PM Workstation Name: [id number]
[2020-07-03 17:36] LABS: Basophils % (Manual) 0 % (0.0-1.8); Eosinophils % (Manual) 0 % (0.0-4.3); Total Cells Counted 100
[2020-07-03 17:37] LABS: Platelet Estimate Consistent w Auto; RBC Morphology Normal
[2020-07-03] MEDS: traZODone 50 MG TAB PO SCH (21:40)
[2020-07-03] MEDS: FUROSEMIDE 40 MG TAB PO SCH (21:42)
[2020-07-03] MEDS ORDERED: FUROSEMIDE 40 MG TAB PO SCH (22:00)
[2020-07-03] MEDS ORDERED: INSULIN GLARGINE 100 UNITS/ML SUB-Q SCH ×2 (22:00)
[2020-07-04] MEDS: LEVOTHYROXINE 112 MCG TAB PO SCH (06:25)
--- NOTE | 2020-07-04 08:37 | Progress Note ---
Subjective Date of service: 07/04/20 Principal diagnosis: Schizophrenia Subjective Comment: The patient's medical record was reviewed and the patient's progress was discussed with the nursing staff. During my interview with the patient this morning, he is lying in bed eating breakfast. He seems to be more calm today and not showing any signs of paranoia. He is a/o x 2. The patient is on 02. He says he's doing okay. The patient denies SI/HI. The patient denies hallucinations of any kind, but when asking about talking to himself yesterday, he smiled and said "if you were in this bed you would too." Reason for continued inpatient treatment: The patient has had recent episodes of hallucinations and paranoia. Will continue to treat and stabilize. REVIEW OF SYSTEMS Constitutional: Negative for weight loss ENT: Negative for stridor Respiratory: Negative for cough or hemoptysis All other systems reviewed and are negative MENTAL STATUS EXAMINATION General Appearance and Behavior: Age appropriate, good hygiene, wearing appropriate clothes, lying in bed, good eye contact, cooperative polite with questioning. Cooperation: Participating/engaged Psychomotor Behavior: unremarkable and within normal limits Mood: "okay" Affect and affective range: decreased range Thought Process: Illogical, Thought Content: Hallucinations Speech: Normal volume, Regular rate and rhythm Intellectual Functioning: Average Suicidal Ideation: Denies SI Homicidal Ideation: Denies HI Hallucinations: Yes, auditory Delusions: None elicited Impulse Control: Impaired Insight and Judgment: Limited insight and judgment Memory:Prospective memory impaired Attention: Normal Orientation: Alert, oriented, Assessment and Plan - Psychiatric problem (1) Schizophrenia, paranoid type Current Visit: Yes Status: Acute Treatment Plan Patient will be admitted for inpatient psychiatric evaluation, medication adjustment and close monitoring The patient's behavior, mood, sleep and appetite will be closely monitored. Patient will be enrolled in individual and group therapeutic sessions and encouraged to attend. Patient will be provided with a safe and structured environment. Patient's physical health needs will be addressed by the Hospitalist. Hospitalist Consulted Labs including CBC, CMP, Lipid profile and Hemoglobin A1C ordered Social Assessment will be completed and the Honey Blender will work with patient and family to ensure a suitable and safe disposition Medication adjustment will be made as clinically indicated Increased Olanzapine 7.5mg po daily yesterday Increase Depakote 250mg po BID Usual Wellness Orthodox/Preservation: - Start Trazodone 50 mg po QHS & 50 mg po QHS PRN between 10 PM & 2 AM for insomnia - Start Melatonin 5 mg po QHS to promote circadian rhythm - Start [place]-3 for brain health, reduce impulsivity, and as adjunctive treatment for mood disorder, continue upon discharge given overall benefits. - Start B1 prophylaxis with 200 mg po for 5 days The patient agreed on the treatment plan, understood the risk, benefit, alternative treatment, potential consequence of no treatment, and gave informed consent. Estimated days: 4 Post hospital care: primary care provider, psychiatric provider Medications and Allergies Allergies Allergy/AdvReac Type Severity Reaction Status Date / Time hydroxyzine [From Vistaril] Allergy Unknown Unverified 07/01/20 13:17 meperidine Allergy Unknown Unverified 07/01/20 13:14 Home Medications Medication Instructions Recorded Confirmed Last Taken Type Aspirin EC 81 mg PO BID 07/01/20 07/01/20 Unknown History Duloxetine HCl 60 mg PO DAILY 07/01/20 07/01/20 Unknown History Folic Acid 1 mg PO DAILY 07/01/20 07/01/20 Unknown History Insulin Glargine 20 units SQ QHS 07/01/20 07/01/20 Unknown History Levothyroxine Sodium 112 mcg PO DAILY 07/01/20 07/01/20 Unknown History Meloxicam 15 mg PO DAILY 07/01/20 07/01/20 Unknown History Morphine Sulfate 15 mg PO QID 07/01/20 07/01/20 Unknown History Prednisone [predniSONE ([place]ana) ER 4 mg PO QDAY 07/01/20 07/01/20 Unknown History TAB] Prevacid 30 mg PO DAILY 07/01/20 07/01/20 Unknown History Quetiapine Fumarate 25 mg PO DAILY 07/01/20 07/01/20 Unknown History Sennosides 8.6 mg PO DAILY 07/01/20 07/01/20 Unknown History Xanax TAB 0.5 mg PO TID 07/01/20 07/01/20 Unknown History Active Meds: Active Medications Aspirin (Halfprin Ec) 81 mg PO QDAY [facility] Dextrose (D50w (25gm) Syringe) 50 ml IV Q30MIN PRN; Protocol PRN Reason: Hypoglycemia Furosemide (Lasix) 80 mg PO QDAY [facility] Last Admin: 07/03/20 21:42 Dose: 80 mg Documented by: Haloperidol Lactate (Haldol) 5 mg IM ONCE PRN PRN Reason: Agitation Insulin [facility]) [facility] Last Admin: 07/03/20 22:07 Dose: 20 units Documented by: Insulin Human Lispro (Humalog) 0 unit SUB-Q [facility]; Protocol Last Admin: 07/03/20 16:35 Dose: 6 unit Documented by: Levothyroxine Sodium (Synthroid) 112 mcg PO DAILY@0600 [facility] Last Admin: 07/04/20 06:25 Dose: 112 mcg Documented by: Lorazepam (Ativan) 1 mg IM Q4HR PRN PRN Reason: Agitation Melatonin (Melatonin) 5 mg PO QHS PRN PRN Reason: Sleep Olanzapine (Zyprexa) 7.5 mg PO QDAY [facility] Last Admin: 07/03/20 10:00 Dose: 7.5 mg Documented by: Prednisone (Prednisone) 4 mg FEEDTUBE QDAY [facility] Last Admin: 07/03/20 09:57 Dose: 4 mg Documented by: Trazodone HCl (Desyrel) 50 mg PO QHS [facility] Last Admin: 07/03/20 21:40 Dose: 50 mg Documented by: Valproic Acid (Depakene Liq) 125 mg PO BID [facility] Last Admin: 07/03/20 21:39 Dose: 125 mg Documented by: Results - Results Labs/Vitals: Laboratory Last Values WBC 20.6 K/mm3 (4.5-11.0) H 07/03/20 15:07 RBC 4.41 M/mm3 (3.65-5.03) 07/03/20 15:07 Hgb 15.1 gm/dl (11.8-15.2) 07/03/20 15:07 Hct 45.2 % (35.5-45.6) 07/03/20 15:07 MCV 103 fl (84-94) H 07/03/20 15:07 MCH 34 pg (28-32) H 07/03/20 15:07 MCHC 33 % (32-34) 07/03/20 15:07 RDW 14.5 % (13.2-15.2) 07/03/20 15:07 Plt Count 175 K/mm3 (140-440) 07/03/20 15:07 Lymph % (Auto) 15.5 % (13.4-35.0) 07/02/20 09:40 [place] % (Auto) 5.4 % (0.0-7.3) 07/02/20 09:40 Eos % (Auto) 0.3 % (0.0-4.3) 07/02/20 09:40 Baso % (Auto) 0.5 % (0.0-1.8) 07/02/20 09:40 Lymph # (Auto) 1.7 K/mm3 (1.2-5.4) 07/02/20 09:40 [place] # (Auto) 0.6 K/mm3 (0.0-0.8) 07/02/20 09:40 Eos # (Auto) 0.0 K/mm3 (0.0-0.4) 07/02/20 09:40 Baso # (Auto) 0.1 K/mm3 (0.0-0.1) 07/02/20 09:40 Add Manual Diff Complete 07/03/20 15:07 Total Counted 100 07/03/20 15:07 Seg Neutrophils % 78.3 % (40.0-70.0) H 07/02/20 09:40 Seg Neuts % (Manual) 86.0 % (40.0-70.0) H 07/03/20 15:07 Band Neutrophils % 0 % 07/03/20 15:07 Lymphocytes % (Manual) 5.0 % (13.4-35.0) L 07/03/20 15:07 Reactive Lymphs % (Man) 0 % 07/03/20 15:07 Monocytes % (Manual) 9.0 % (0.0-7.3) H 07/03/20 15:07 Eosinophils % (Manual) 0 % (0.0-4.3) 07/03/20 15:07 Basophils % (Manual) 0 % (0.0-1.8) 07/03/20 15:07 Metamyelocytes % 0 % 07/03/20 15:07 Myelocytes % 0 % 07/03/20 15:07 Promyelocytes % 0 % 07/03/20 15:07 Blast Cells % 0 % 07/03/20 15:07 Nucleated RBC % Not Reportable 07/03/20 15:07 Seg Neutrophils # 8.4 K/mm3 (1.8-7.7) H 07/02/20 09:40 Seg Neutrophils # Man 17.7 K/mm3 (1.8-7.7) H 07/03/20 15:07 Band Neutrophils # 0.0 K/mm3 07/03/20 15:07 Lymphocytes # (Manual) 1.0 K/mm3 (1.2-5.4) L 07/03/20 15:07 Abs React Lymphs (Man) 0.0 K/mm3 07/03/20 15:07 Monocytes # (Manual) 1.9 K/mm3 (0.0-0.8) H 07/03/20 15:07 Eosinophils # (Manual) 0.0 K/mm3 (0.0-0.4) 07/03/20 15:07 Basophils # (Manual) 0.0 K/mm3 (0.0-0.1) 07/03/20 15:07 Metamyelocytes # 0.0 K/mm3 07/03/20 15:07 Myelocytes # 0.0 K/mm3 07/03/20 15:07 Promyelocytes # 0.0 K/mm3 07/03/20 15:07 Blast Cells # 0.0 K/mm3 07/03/20 15:07 WBC Morphology Not Reportable 07/03/20 15:07 Hypersegmented Neuts Not Reportable 07/03/20 15:07 Hyposegmented Neuts Not Reportable 07/03/20 15:07 Hypogranular Neuts Not Reportable 07/03/20 15:07 Smudge Cells Not Reportable 07/03/20 15:07 Toxic Granulation Not Reportable 07/03/20 15:07 Toxic Vacuolation Not Reportable 07/03/20 15:07 Dohle Bodies Not Reportable 07/03/20 15:07 Pelger-Huet Anomaly Not Reportable 07/03/20 15:07 Faiza Rods Not Reportable 07/03/20 15:07 Platelet Estimate Consistent w auto 07/03/20 15:07 Clumped Platelets Not Reportable 07/03/20 15:07 Plt Clumps, EDTA Not Reportable 07/03/20 15:07 Large Platelets Not Reportable 07/03/20 15:07 Giant Platelets Not Reportable 07/03/20 15:07 Platelet Satelliting Not Reportable 07/03/20 15:07 Plt Morphology Comment Not Reportable 07/03/20 15:07 RBC Morphology Normal 07/03/20 15:07 Dimorphic RBCs Not Reportable 07/03/20 15:07 Polychromasia Not Reportable 07/03/20 15:07 Hypochromasia Not Reportable 07/03/20 15:07 Poikilocytosis Not Reportable 07/03/20 15:07 Anisocytosis Not Reportable 07/03/20 15:07 Microcytosis Not Reportable 07/03/20 15:07 Macrocytosis Not Reportable 07/03/20 15:07 Spherocytes Not Reportable 07/03/20 15:07 Pappenheimer Bodies Not Reportable 07/03/20 15:07 Sickle Cells Not Reportable 07/03/20 15:07 Target Cells Not Reportable 07/03/20 15:07 Tear Drop Cells Not Reportable 07/03/20 15:07 Ovalocytes Not Reportable 07/03/20 15:07 Helmet Cells Not Reportable 07/03/20 15:07 [place] Bodies Not Reportable 07/03/20 15:07 [place] Rings Not Reportable 07/03/20 15:07 [place] Cells Not Reportable 07/03/20 15:07 Bite Cells Not Reportable 07/03/20 15:07 Crenated Cell Not Reportable 07/03/20 15:07 Elliptocytes Not Reportable 07/03/20 15:07 Acanthocytes (Spur) Not Reportable 07/03/20 15:07 Rouleaux Not Reportable 07/03/20 15:07 Hemoglobin C Crystals Not Reportable 07/03/20 15:07 Schistocytes Not Reportable 07/03/20 15:07 Malaria parasites Not Reportable 07/03/20 15:07 Jakob Bodies Not Reportable 07/03/20 15:07 Hem Pathologist Commnt No 07/03/20 15:07 D-Dimer 1539.64 ng/mlDDU (0-234) H 07/03/20 15:18 ABG pH 7.378 pH Units (7.350-7.450) 07/03/20 14:35 ABG pCO2 26.4 mm Hg 07/03/20 14:35 ABG pO2 137.0 mm Hg (80.0-90.0) H 07/03/20 14:35 ABG HCO3 15.2 mmol/L (20.0-26.0) L 07/03/20 14:35 ABG O2 Saturation 98.7 % (95.0-99.0) 07/03/20 14:35 ABG O2 Content 19.9 (0.0-44) 07/03/20 14:35 ABG Base Excess -8.2 mmol/L (-2.0-3.0) L 07/03/20 14:35 ABG Hemoglobin 14.5 gm/dl (14.0-18.0) 07/03/20 14:35 ABG Carboxyhemoglobin 1.5 % (0.0-5.0) 07/03/20 14:35 ABG Methemoglobin 0.6 % (0.0-1.5) 07/03/20 14:35 Oxyhemoglobin 96.5 % (95.0-99.0) 07/03/20 14:35 FiO2 40 % 07/03/20 14:35 Sodium 130 mmol/L (137-145) L D 07/03/20 15:04 Potassium 4.9 mmol/L (3.6-5.0) 07/03/20 15:04 Chloride 92.3 mmol/L (98-107) L 07/03/20 15:04 Carbon Dioxide 15 mmol/L (22-30) L 07/03/20 15:04 Anion Gap 28 mmol/L 07/03/20 15:04 BUN 52 mg/dL (9-20) H 07/03/20 15:04 Creatinine 1.2 mg/dL (0.8-1.3) 07/03/20 15:04 Estimated GFR 59 ml/min 07/03/20 15:04 BUN/Creatinine Ratio 43 % 07/03/20 15:04 Glucose 387 mg/dL (75-100) H 07/03/20 15:04 POC Glucose 263 (70-105) H 07/04/20 08:11 Hemoglobin A1c 9.5 % (4-6) H 07/02/20 09:40 Calcium 9.0 mg/dL (8.4-10.2) 07/03/20 15:04 Total Bilirubin 0.80 mg/dL (0.1-1.2) 07/03/20 15:04 AST 43 units/L (5-40) H 07/03/20 15:04 ALT 26 units/L (7-56) 07/03/20 15:04 Alkaline Phosphatase 80 units/L (35-129) 07/03/20 15:04 NT-Pro-B Natriuret Pep 3567 pg/mL (0-900) H 07/03/20 15:04 Total Protein 5.7 g/dL (6.3-8.2) L 07/03/20 15:04 Albumin 4.0 g/dL (3.9-5) 07/03/20 15:04 Albumin/Globulin Ratio 2.4 % 07/03/20 15:04 Triglycerides 120 mg/dL (2-149) 07/02/20 09:40 Cholesterol 165 mg/dL (50-199) 07/02/20 09:40 LDL Cholesterol Direct 80 mg/dL (50-130) 07/02/20 09:40 HDL Cholesterol 75 mg/dL (40-59) H 07/02/20 09:40 Cholesterol/HDL Ratio 2.20 % 07/02/20 09:40 TSH 0.045 mlU/mL (0.270-4.200) L 07/02/20 09:40 Free T4 1.75 ng/dL (0.76-1.46) H 07/02/20 10:46 Last Vital Signs Temp 98.0 F 07/03/20 22:00 Pulse 116 H 07/03/20 22:00 Resp 20 07/03/20 22:00 BP 145/71 07/03/20 22:00 Pulse Ox 100 07/03/20 22:00
[2020-07-04 09:48] VITALS: BP 133/72
[2020-07-04] MEDS ORDERED: ASPIRIN EC 81 MG TAB PO SCH (10:00)
[2020-07-04] MEDS ORDERED: VALPROIC ACID 250 MG/5 ML ORAL LIQD PO SCH (10:00)
[2020-07-04] MEDS: predniSONE 5 MG/5 ML ORAL LIQUID FEEDTUBE SCH (10:41)
[2020-07-04] MEDS: FUROSEMIDE 40 MG TAB PO SCH (10:41)
[2020-07-04] MEDS: INSULIN LISPRO 100 UNIT/ML VIAL 3 mL SUB-Q SCH ×2 (10:42→13:30)
--- NOTE | 2020-07-04 11:57 | Progress Note ---
Assessment and Plan - Patient Problems (1) Schizophrenia, paranoid type Current Visit: Yes Status: Acute Plan to address problem: Management as per primary team (2) Hypothyroidism (acquired) Current Visit: Yes Status: Acute Plan to address problem: Continue synthroid. Check TSH (3) Diabetes mellitus Current Visit: Yes Status: Acute Plan to address problem: Continue sliding scale insulin Lantus at night HbA1c 9.5 Endocrinology follow up in the office after discharge (4) Rheumatoid arthritis Current Visit: Yes Status: Acute Plan to address problem: Continue low dose prednisone for now. Methotrexate weekly (5) HTN (hypertension) Current Visit: Yes Status: Acute Plan to address problem: Lisinopril 5 mg daily (6) Acute respiratory failure with hypoxia Current Visit: Yes Status: Acute Plan to address problem: Continue oxygen supplementation 07/03. Chest xray shows scarring of the left lobe with no cloear pneumonia Has ddimer >1000. Us doppler and CTA chest ordered ProBNP is also elevated so lasix has been started At this juncture, labs and other investigations are not carried out in a timely manner. He will need to be transferred to telemetry. Order for transfer placed. Discussed with RN History Interval history: On oxygen. Labs reviewed. Will get CTA chest. Continue lasix for now Hospitalist Physical - Constitutional Vitals: Temp Pulse Resp BP Pulse Ox 98.0 F 115 H 20 133/72 97 07/03/20 22:00 07/04/20 09:05 07/03/20 22:00 07/04/20 09:05 07/04/20 09:05 General appearance: Present: no acute distress, well-nourished - EENT Eyes: Present: PERRL - Respiratory Respiratory: bilateral: diminished - Cardiovascular Heart Sounds: Present: S1 & S2 - Extremities Extremities: No edema - Abdominal General gastrointestinal: soft, non-tender, non-distended, normal bowel sounds - Psychiatric Psychiatric: appropriate mood/affect - Neurologic Neurologic: CNII-XII intact Results - Labs CBC & Chem 7: 07/03/20 15:07 07/03/20 15:04 Labs: Laboratory Last Values WBC 20.6 K/mm3 (4.5-11.0) H 07/03/20 15:07 RBC 4.41 M/mm3 (3.65-5.03) 07/03/20 15:07 Hgb 15.1 gm/dl (11.8-15.2) 07/03/20 15:07 Hct 45.2 % (35.5-45.6) 07/03/20 15:07 MCV 103 fl (84-94) H 07/03/20 15:07 MCH 34 pg (28-32) H 07/03/20 15:07 MCHC 33 % (32-34) 07/03/20 15:07 RDW 14.5 % (13.2-15.2) 07/03/20 15:07 Plt Count 175 K/mm3 (140-440) 07/03/20 15:07 Lymph % (Auto) 15.5 % (13.4-35.0) 07/02/20 09:40 [place] % (Auto) 5.4 % (0.0-7.3) 07/02/20 09:40 Eos % (Auto) 0.3 % (0.0-4.3) 07/02/20 09:40 Baso % (Auto) 0.5 % (0.0-1.8) 07/02/20 09:40 Lymph # (Auto) 1.7 K/mm3 (1.2-5.4) 07/02/20 09:40 [place] # (Auto) 0.6 K/mm3 (0.0-0.8) 07/02/20 09:40 Eos # (Auto) 0.0 K/mm3 (0.0-0.4) 07/02/20 09:40 Baso # (Auto) 0.1 K/mm3 (0.0-0.1) 07/02/20 09:40 Add Manual Diff Complete 07/03/20 15:07 Total Counted 100 07/03/20 15:07 Seg Neutrophils % 78.3 % (40.0-70.0) H 07/02/20 09:40 Seg Neuts % (Manual) 86.0 % (40.0-70.0) H 07/03/20 15:07 Band Neutrophils % 0 % 07/03/20 15:07 Lymphocytes % (Manual) 5.0 % (13.4-35.0) L 07/03/20 15:07 Reactive Lymphs % (Man) 0 % 07/03/20 15:07 Monocytes % (Manual) 9.0 % (0.0-7.3) H 07/03/20 15:07 Eosinophils % (Manual) 0 % (0.0-4.3) 07/03/20 15:07 Basophils % (Manual) 0 % (0.0-1.8) 07/03/20 15:07 Metamyelocytes % 0 % 07/03/20 15:07 Myelocytes % 0 % 07/03/20 15:07 Promyelocytes % 0 % 07/03/20 15:07 Blast Cells % 0 % 07/03/20 15:07 Nucleated RBC % Not Reportable 07/03/20 15:07 Seg Neutrophils # 8.4 K/mm3 (1.8-7.7) H 07/02/20 09:40 Seg Neutrophils # Man 17.7 K/mm3 (1.8-7.7) H 07/03/20 15:07 Band Neutrophils # 0.0 K/mm3 07/03/20 15:07 Lymphocytes # (Manual) 1.0 K/mm3 (1.2-5.4) L 07/03/20 15:07 Abs React Lymphs (Man) 0.0 K/mm3 07/03/20 15:07 Monocytes # (Manual) 1.9 K/mm3 (0.0-0.8) H 07/03/20 15:07 Eosinophils # (Manual) 0.0 K/mm3 (0.0-0.4) 07/03/20 15:07 Basophils # (Manual) 0.0 K/mm3 (0.0-0.1) 07/03/20 15:07 Metamyelocytes # 0.0 K/mm3 07/03/20 15:07 Myelocytes # 0.0 K/mm3 07/03/20 15:07 Promyelocytes # 0.0 K/mm3 07/03/20 15:07 Blast Cells # 0.0 K/mm3 07/03/20 15:07 WBC Morphology Not Reportable 07/03/20 15:07 Hypersegmented Neuts Not Reportable 07/03/20 15:07 Hyposegmented Neuts Not Reportable 07/03/20 15:07 Hypogranular Neuts Not Reportable 07/03/20 15:07 Smudge Cells Not Reportable 07/03/20 15:07 Toxic Granulation Not Reportable 07/03/20 15:07 Toxic Vacuolation Not Reportable 07/03/20 15:07 Dohle Bodies Not Reportable 07/03/20 15:07 Pelger-Huet Anomaly Not Reportable 07/03/20 15:07 Faiza Rods Not Reportable 07/03/20 15:07 Platelet Estimate Consistent w auto 07/03/20 15:07 Clumped Platelets Not Reportable 07/03/20 15:07 Plt Clumps, EDTA Not Reportable 07/03/20 15:07 Large Platelets Not Reportable 07/03/20 15:07 Giant Platelets Not Reportable 07/03/20 15:07 Platelet Satelliting Not Reportable 07/03/20 15:07 Plt Morphology Comment Not Reportable 07/03/20 15:07 RBC Morphology Normal 07/03/20 15:07 Dimorphic RBCs Not Reportable 07/03/20 15:07 Polychromasia Not Reportable 07/03/20 15:07 Hypochromasia Not Reportable 07/03/20 15:07 Poikilocytosis Not Reportable 07/03/20 15:07 Anisocytosis Not Reportable 07/03/20 15:07 Microcytosis Not Reportable 07/03/20 15:07 Macrocytosis Not Reportable 07/03/20 15:07 Spherocytes Not Reportable 07/03/20 15:07 Pappenheimer Bodies Not Reportable 07/03/20 15:07 Sickle Cells Not Reportable 07/03/20 15:07 Target Cells Not Reportable 07/03/20 15:07 Tear Drop Cells Not Reportable 07/03/20 15:07 Ovalocytes Not Reportable 07/03/20 15:07 Helmet Cells Not Reportable 07/03/20 15:07 Malhotra-[place] Bodies Not Reportable 07/03/20 15:07 [place] Rings Not Reportable 07/03/20 15:07 Femi Cells Not Reportable 07/03/20 15:07 Bite Cells Not Reportable 07/03/20 15:07 Crenated Cell Not Reportable 07/03/20 15:07 Elliptocytes Not Reportable 07/03/20 15:07 Acanthocytes (Spur) Not Reportable 07/03/20 15:07 Rouleaux Not Reportable 07/03/20 15:07 Hemoglobin C Crystals Not Reportable 07/03/20 15:07 Schistocytes Not Reportable 07/03/20 15:07 Malaria parasites Not Reportable 07/03/20 15:07 Jakob Bodies Not Reportable 07/03/20 15:07 Hem Pathologist Commnt No 07/03/20 15:07 D-Dimer 1539.64 ng/mlDDU (0-234) H 07/03/20 15:18 ABG pH 7.378 pH Units (7.350-7.450) 07/03/20 14:35 ABG pCO2 26.4 mm Hg 07/03/20 14:35 ABG pO2 137.0 mm Hg (80.0-90.0) H 07/03/20 14:35 ABG HCO3 15.2 mmol/L (20.0-26.0) L 07/03/20 14:35 ABG O2 Saturation 98.7 % (95.0-99.0) 07/03/20 14:35 ABG O2 Content 19.9 (0.0-44) 07/03/20 14:35 ABG Base Excess -8.2 mmol/L (-2.0-3.0) L 07/03/20 14:35 ABG Hemoglobin 14.5 gm/dl (14.0-18.0) 07/03/20 14:35 ABG Carboxyhemoglobin 1.5 % (0.0-5.0) 07/03/20 14:35 ABG Methemoglobin 0.6 % (0.0-1.5) 07/03/20 14:35 Oxyhemoglobin 96.5 % (95.0-99.0) 07/03/20 14:35 FiO2 40 % 07/03/20 14:35 Sodium 130 mmol/L (137-145) L D 07/03/20 15:04 Potassium 4.9 mmol/L (3.6-5.0) 07/03/20 15:04 Chloride 92.3 mmol/L (98-107) L 07/03/20 15:04 Carbon Dioxide 15 mmol/L (22-30) L 07/03/20 15:04 Anion Gap 28 mmol/L 07/03/20 15:04 BUN 52 mg/dL (9-20) H 07/03/20 15:04 Creatinine 1.2 mg/dL (0.8-1.3) 07/03/20 15:04 Estimated GFR 59 ml/min 07/03/20 15:04 BUN/Creatinine Ratio 43 % 07/03/20 15:04 Glucose 387 mg/dL (75-100) H 07/03/20 15:04 POC Glucose 263 (70-105) H 07/04/20 08:11 Hemoglobin A1c 9.5 % (4-6) H 07/02/20 09:40 Calcium 9.0 mg/dL (8.4-10.2) 07/03/20 15:04 Total Bilirubin 0.80 mg/dL (0.1-1.2) 07/03/20 15:04 AST 43 units/L (5-40) H 07/03/20 15:04 ALT 26 units/L (7-56) 07/03/20 15:04 Alkaline Phosphatase 80 units/L (35-129) 07/03/20 15:04 NT-Pro-B Natriuret Pep 3567 pg/mL (0-900) H 07/03/20 15:04 Total Protein 5.7 g/dL (6.3-8.2) L 07/03/20 15:04 Albumin 4.0 g/dL (3.9-5) 07/03/20 15:04 Albumin/Globulin Ratio 2.4 % 07/03/20 15:04 Triglycerides 120 mg/dL (2-149) 07/02/20 09:40 Cholesterol 165 mg/dL (50-199) 07/02/20 09:40 LDL Cholesterol Direct 80 mg/dL (50-130) 07/02/20 09:40 HDL Cholesterol 75 mg/dL (40-59) H 07/02/20 09:40 Cholesterol/HDL Ratio 2.20 % 07/02/20 09:40 TSH 0.045 mlU/mL (0.270-4.200) L 07/02/20 09:40 Free T4 1.75 ng/dL (0.76-1.46) H 07/02/20 10:46 Hollis/IV: Voiding Method Diaper Active Medications - Current Medications Current Medications: Generic Name Dose Route Start Last Admin Trade Name Freq PRN Reason Stop Dose Admin Aspirin 81 mg 07/04/20 10:00 07/04/20 10:41 Halfprin Ec PO 81 mg QDAY NYLA Administration Dextrose 50 ml 07/02/20 16:04 D50w (25gm) Syringe IV Q30MIN PRN Hypoglycemia Protocol Furosemide 80 mg 07/03/20 22:00 07/04/20 10:41 Lasix PO 80 mg QDAY NYLA Administration Haloperidol Lactate 5 mg 07/01/20 12:11 Haldol IM ONCE PRN Agitation Insulin Glargine 20 units 07/03/20 22:00 07/03/20 22:07 Lantus SUB-Q 20 units QHS NYLA Administration Insulin Human Lispro 0 unit 07/02/20 16:30 07/04/20 10:42 Humalog SUB-Q Not Given AC PENDING SALE TO [facility] Protocol Levothyroxine Sodium 112 mcg 07/03/20 06:00 07/04/20 06:25 Synthroid PO 112 mcg DAILY@0600 NYLA Administration Lorazepam 1 mg 07/01/20 12:11 Ativan IM Q4HR PRN Agitation Melatonin 5 mg 07/01/20 12:11 Melatonin PO QHS PRN Sleep Olanzapine 7.5 mg 07/03/20 10:00 07/03/20 10:00 Zyprexa PO 7.5 mg QDAY NYLA Administration Prednisone 4 mg 07/03/20 10:00 07/04/20 10:41 Prednisone FEEDTUBE 4 mg QDAY NYLA Administration Trazodone HCl 50 mg 07/01/20 22:00 07/03/20 21:40 Desyrel PO 50 mg QHS NYLA Administration Valproic Acid 250 mg 07/04/20 10:00 Depakene Liq PO BID PENDING SALE TO [facility]
[2020-07-04] MEDS ORDERED: INSULIN LISPRO 100 UNIT/ML VIAL 3 mL SUB-Q ONE (14:00)
[2020-07-04 14:30] LABS: Hematocrit 48.7 % (35.5-45.6); Hemoglobin 16.2 gm/dl (11.8-15.2); Mean Corpuscular HGB Conc 33 % (32-34); Mean Corpuscular Volume 104 fl (84-94); Platelet Count 102 K/mm3 (140-440); Red Cell Distribution Width 14.4 % (13.2-15.2)
[2020-07-04 14:34] LABS: Albumin 4.2 g/dL (3.9-5); Calcium 9.2 mg/dL (8.4-10.2)
--- NOTE | 2020-07-04 15:05 | Discharge Summary ---
Providers - Providers Date of Admission: 07/01/20 21:12 Date of discharge: 07/04/20 Attending physician: JOHN SABA MD 07/01/20 12:09 Consult to Physician [CONS] Routine Comment: Consulting Provider: DREW CHUN Physician Instructions: Reason For Exam: Medical Management Primary care physician: SATELLITE INSTRUCTION FACILITATOR Hospitalization Reason for admission: psychosis Admitting Diagnosis: F20.9 - SCHIZOPHRENIA, UNSPECIFIED Condition: Stable Hospital course: The patient was provided inpatient treatment with safe and supportive care, medication adjustment, adverse affect monitoring, medical evaluation ad medical treatment, assessment and psycho-education. The patient's mood, cognition, behavior are improved and stabilized. Disposition: DC/TX-02 SHRT-TRM GEN HOSP IP Time spent for discharge: 38 Allergies/Adverse Reactions: Allergies hydroxyzine [From Vistaril] Allergy (Verified 07/04/20 10:39) Unknown meperidine Allergy (Verified 07/04/20 10:39) Unknown Vital Signs: Last Vital Signs Temp 98.0 F 07/03/20 22:00 Pulse 115 H 07/04/20 09:05 Resp 20 07/03/20 22:00 BP 133/72 07/04/20 09:05 Pulse Ox 97 07/04/20 09:05 Last Lab: Laboratory Last Values WBC 24.7 K/mm3 (4.5-11.0) H 07/04/20 13:59 RBC 4.70 M/mm3 (3.65-5.03) 07/04/20 13:59 Hgb 16.2 gm/dl (11.8-15.2) H 07/04/20 13:59 Hct 48.7 % (35.5-45.6) H 07/04/20 13:59 MCV 104 fl (84-94) H 07/04/20 13:59 MCH 35 pg (28-32) H 07/04/20 13:59 MCHC 33 % (32-34) 07/04/20 13:59 RDW 14.4 % (13.2-15.2) 07/04/20 13:59 Plt Count 102 K/mm3 (140-440) L 07/04/20 13:59 Lymph % (Auto) 15.5 % (13.4-35.0) 07/02/20 09:40 [place] % (Auto) 5.4 % (0.0-7.3) 07/02/20 09:40 Eos % (Auto) 0.3 % (0.0-4.3) 07/02/20 09:40 Baso % (Auto) 0.5 % (0.0-1.8) 07/02/20 09:40 Lymph # (Auto) 1.7 K/mm3 (1.2-5.4) 07/02/20 09:40 [place] # (Auto) 0.6 K/mm3 (0.0-0.8) 07/02/20 09:40 Eos # (Auto) 0.0 K/mm3 (0.0-0.4) 07/02/20 09:40 Baso # (Auto) 0.1 K/mm3 (0.0-0.1) 07/02/20 09:40 Add Manual Diff Complete 07/03/20 15:07 Total Counted 100 07/03/20 15:07 Seg Neutrophils % 78.3 % (40.0-70.0) H 07/02/20 09:40 Seg Neuts % (Manual) 86.0 % (40.0-70.0) H 07/03/20 15:07 Band Neutrophils % 0 % 07/03/20 15:07 Lymphocytes % (Manual) 5.0 % (13.4-35.0) L 07/03/20 15:07 Reactive Lymphs % (Man) 0 % 07/03/20 15:07 Monocytes % (Manual) 9.0 % (0.0-7.3) H 07/03/20 15:07 Eosinophils % (Manual) 0 % (0.0-4.3) 07/03/20 15:07 Basophils % (Manual) 0 % (0.0-1.8) 07/03/20 15:07 Metamyelocytes % 0 % 07/03/20 15:07 Myelocytes % 0 % 07/03/20 15:07 Promyelocytes % 0 % 07/03/20 15:07 Blast Cells % 0 % 07/03/20 15:07 Nucleated RBC % Not Reportable 07/03/20 15:07 Seg Neutrophils # 8.4 K/mm3 (1.8-7.7) H 07/02/20 09:40 Seg Neutrophils # Man 17.7 K/mm3 (1.8-7.7) H 07/03/20 15:07 Band Neutrophils # 0.0 K/mm3 07/03/20 15:07 Lymphocytes # (Manual) 1.0 K/mm3 (1.2-5.4) L 07/03/20 15:07 Abs React Lymphs (Man) 0.0 K/mm3 07/03/20 15:07 Monocytes # (Manual) 1.9 K/mm3 (0.0-0.8) H 07/03/20 15:07 Eosinophils # (Manual) 0.0 K/mm3 (0.0-0.4) 07/03/20 15:07 Basophils # (Manual) 0.0 K/mm3 (0.0-0.1) 07/03/20 15:07 Metamyelocytes # 0.0 K/mm3 07/03/20 15:07 Myelocytes # 0.0 K/mm3 07/03/20 15:07 Promyelocytes # 0.0 K/mm3 07/03/20 15:07 Blast Cells # 0.0 K/mm3 07/03/20 15:07 WBC Morphology Not Reportable 07/03/20 15:07 Hypersegmented Neuts Not Reportable 07/03/20 15:07 Hyposegmented Neuts Not Reportable 07/03/20 15:07 Hypogranular Neuts Not Reportable 07/03/20 15:07 Smudge Cells Not Reportable 07/03/20 15:07 Toxic Granulation Not Reportable 07/03/20 15:07 Toxic Vacuolation Not Reportable 07/03/20 15:07 Dohle Bodies Not Reportable 07/03/20 15:07 Pelger-Huet Anomaly Not Reportable 07/03/20 15:07 Faiza Rods Not Reportable 07/03/20 15:07 Platelet Estimate Consistent w auto 07/03/20 15:07 Clumped Platelets Not Reportable 07/03/20 15:07 Plt Clumps, EDTA Not Reportable 07/03/20 15:07 Large Platelets Not Reportable 07/03/20 15:07 Giant Platelets Not Reportable 07/03/20 15:07 Platelet Satelliting Not Reportable 07/03/20 15:07 Plt Morphology Comment Not Reportable 07/03/20 15:07 RBC Morphology Normal 07/03/20 15:07 Dimorphic RBCs Not Reportable 07/03/20 15:07 Polychromasia Not Reportable 07/03/20 15:07 Hypochromasia Not Reportable 07/03/20 15:07 Poikilocytosis Not Reportable 07/03/20 15:07 Anisocytosis Not Reportable 07/03/20 15:07 Microcytosis Not Reportable 07/03/20 15:07 Macrocytosis Not Reportable 07/03/20 15:07 Spherocytes Not Reportable 07/03/20 15:07 Pappenheimer Bodies Not Reportable 07/03/20 15:07 Sickle Cells Not Reportable 07/03/20 15:07 Target Cells Not Reportable 07/03/20 15:07 Tear Drop Cells Not Reportable 07/03/20 15:07 Ovalocytes Not Reportable 07/03/20 15:07 Helmet Cells Not Reportable 07/03/20 15:07 Malhotra-[place] Bodies Not Reportable 07/03/20 15:07 [place] Rings Not Reportable 07/03/20 15:07 Femi Cells Not Reportable 07/03/20 15:07 Bite Cells Not Reportable 07/03/20 15:07 Crenated Cell Not Reportable 07/03/20 15:07 Elliptocytes Not Reportable 07/03/20 15:07 Acanthocytes (Spur) Not Reportable 07/03/20 15:07 Rouleaux Not Reportable 07/03/20 15:07 Hemoglobin C Crystals Not Reportable 07/03/20 15:07 Schistocytes Not Reportable 07/03/20 15:07 Malaria parasites Not Reportable 07/03/20 15:07 Jakob Bodies Not Reportable 07/03/20 15:07 Hem Pathologist Commnt No 07/03/20 15:07 D-Dimer 1539.64 ng/mlDDU (0-234) H 07/03/20 15:18 ABG pH 7.378 pH Units (7.350-7.450) 07/03/20 14:35 ABG pCO2 26.4 mm Hg 07/03/20 14:35 ABG pO2 137.0 mm Hg (80.0-90.0) H 07/03/20 14:35 ABG HCO3 15.2 mmol/L (20.0-26.0) L 07/03/20 14:35 ABG O2 Saturation 98.7 % (95.0-99.0) 07/03/20 14:35 ABG O2 Content 19.9 (0.0-44) 07/03/20 14:35 ABG Base Excess -8.2 mmol/L (-2.0-3.0) L 07/03/20 14:35 ABG Hemoglobin 14.5 gm/dl (14.0-18.0) 07/03/20 14:35 ABG Carboxyhemoglobin 1.5 % (0.0-5.0) 07/03/20 14:35 ABG Methemoglobin 0.6 % (0.0-1.5) 07/03/20 14:35 Oxyhemoglobin 96.5 % (95.0-99.0) 07/03/20 14:35 FiO2 40 % 07/03/20 14:35 Sodium 131 mmol/L (137-145) L 07/04/20 13:59 Potassium 4.4 mmol/L (3.6-5.0) 07/04/20 13:59 Chloride 88.7 mmol/L (98-107) L 07/04/20 13:59 Carbon Dioxide 16 mmol/L (22-30) L 07/04/20 13:59 Anion Gap 31 mmol/L 07/04/20 13:59 BUN 62 mg/dL (9-20) H 07/04/20 13:59 Creatinine 1.3 mg/dL (0.8-1.3) 07/04/20 13:59 Estimated GFR 54 ml/min 07/04/20 13:59 BUN/Creatinine Ratio 48 % 07/04/20 13:59 Glucose 421 mg/dL (75-100) H 07/04/20 13:59 POC Glucose 396 (70-105) H 07/04/20 13:26 Hemoglobin A1c 9.5 % (4-6) H 07/02/20 09:40 Calcium 9.2 mg/dL (8.4-10.2) 07/04/20 13:59 Total Bilirubin 0.80 mg/dL (0.1-1.2) 07/04/20 13:59 AST 34 units/L (5-40) 07/04/20 13:59 ALT 27 units/L (7-56) 07/04/20 13:59 Alkaline Phosphatase 88 units/L (35-129) 07/04/20 13:59 NT-Pro-B Natriuret Pep 3567 pg/mL (0-900) H 07/03/20 15:04 Total Protein 5.8 g/dL (6.3-8.2) L 07/04/20 13:59 Albumin 4.2 g/dL (3.9-5) 07/04/20 13:59 Albumin/Globulin Ratio 2.6 % 07/04/20 13:59 Triglycerides 120 mg/dL (2-149) 07/02/20 09:40 Cholesterol 165 mg/dL (50-199) 07/02/20 09:40 LDL Cholesterol Direct 80 mg/dL (50-130) 07/02/20 09:40 HDL Cholesterol 75 mg/dL (40-59) H 07/02/20 09:40 Cholesterol/HDL Ratio 2.20 % 07/02/20 09:40 Procalcitonin 0.28 ng/mL (<0.15) 07/04/20 13:59 TSH 0.045 mlU/mL (0.270-4.200) L 07/02/20 09:40 Free T4 1.75 ng/dL (0.76-1.46) H 07/02/20 10:46 Core Measure Documentation - Palliative Care Palliative Care/ Comfort Measures: Not Applicable - Core Measures Any of the following diagnoses?: none Exam - Constitutional Vitals: Temp Pulse Resp BP Pulse Ox 98.0 F 115 H 20 133/72 97 07/03/20 22:00 07/04/20 09:05 07/03/20 22:00 07/04/20 09:05 07/04/20 09:05 General appearance: Present: no acute distress - EENT Eyes: Present: PERRL, EOM intact ENT: hearing intact, clear oral mucosa - Neck Neck: Present: supple, normal ROM - Respiratory Respiratory effort: normal Plan Activity: advance as tolerated Weight Bearing Status: Weight Bear as Tolerated Care Plan Goals: Maintain good and stable mental health Plan of Treatment: The patient should be complaint with medications, not to use drugs and not to drink alcohol. THe patient understands that if suicidal ideations, homicial or any endangering feelings he is to seek immediate assistance. Follow up with psych and PCP 7 to 14 days within discharge. Follow up with: PRIMARY CARE,MD [Primary Care Provider] - 7 Days
[2020-07-04 16:57] LABS: Band Neutrophils # (Manual) 0.5 K/mm3; Basophils % (Manual) 0 % (0.0-1.8); Eosinophils % (Manual) 0 % (0.0-4.3); Total Cells Counted 100
[2020-07-04 16:58] LABS: Ovalocytes Rare; Platelet Estimate Consistent w Auto
[2020-07-04] MEDS ORDERED: PIPERACIL/TAZOBACTA 4.5/NS 100 4.5 GM/100 ML VIAL IV SCH (18:00)
== END 2020-07-04 15:53 | disposition short-term general hospital (02) | DRG 885 ==
LOC: 3A 12:04 → UNDOADMIN 12:04 → 5A 21:12 → EDBD 21:12
PROVIDERS: ADMIT Psychiatry & Neurology Psychiatry; ATTEND Psychiatry & Neurology Psychiatry
DX: F20.0 Paranoid schizophrenia (principal); J96.01 Acute respiratory failure with hypoxia; M06.9 Rheumatoid arthritis, unspecified; E11.9 Type 2 diabetes mellitus without complications; E03.9 Hypothyroidism, unspecified; I10 Essential (primary) hypertension; Z88.8 Allergy status to other drugs, medicaments and biological substances; Z79.4 Long term (current) use of insulin
CPT/HCPCS: 36415; 36600; 71045; 80053; 80061; 82803; 82962; 83036; 83880; 84145; 84439; 84443; 84480; 85007; 85025; 85379; 93005; 94760; G0378; J1815; J2060; J7512

== ENCOUNTER 2020-07-04 12:38 | Inpatient (IN) | payer MEDICARE ==
[2020-07-04] MEDS ORDERED: ONDANSETRON 4 MG/2 ML INJ IV PRN (16:08)
--- NOTE | 2020-07-04 16:19 | History and Physical Report ---
History of Present Illness Date of examination: 07/04/20 Chief complaint: Shortness of breath History of present illness: 76 year old with a medical history of HTN, Hypothyroidism, RA, Schizophrenia who is being admitted from psych unit with complaints of shortness of breath. He was initially admitted to the unit due to his psych condition but he developed shortness of breath a day prior. He denies any chest pain or palpiations. I saw patient in the pscych unit today and he was on nasal cannula. He had no complaints. Decision was made to admit to the hospitsal as he has tachycardia and hypoxia. WOrk up has commenced. His chest xray performed on 07/03 shows no clear infiltrate but his labs shows leukocytosis with a left shift,elevated ddimer and probnp. Medications and Allergies Allergies Allergy/AdvReac Type Severity Reaction Status Date / Time hydroxyzine [From Vistaril] Allergy Unknown Verified 07/04/20 10:39 meperidine Allergy Unknown Verified 07/04/20 10:39 Home Medications Medication Instructions Recorded Confirmed Last Taken Type Aspirin EC 81 mg PO BID 07/01/20 07/01/20 Unknown History Duloxetine HCl 60 mg PO DAILY 07/01/20 07/01/20 Unknown History Folic Acid 1 mg PO DAILY 07/01/20 07/01/20 Unknown History Insulin Glargine 20 units SQ QHS 07/01/20 07/01/20 Unknown History Levothyroxine Sodium 112 mcg PO DAILY 07/01/20 07/01/20 Unknown History Meloxicam 15 mg PO DAILY 07/01/20 07/01/20 Unknown History Morphine Sulfate 15 mg PO QID 07/01/20 07/01/20 Unknown History Prednisone [predniSONE ([place]) ER 4 mg PO QDAY 07/01/20 07/01/20 Unknown History TAB] Prevacid 30 mg PO DAILY 07/01/20 07/01/20 Unknown History Quetiapine Fumarate 25 mg PO DAILY 07/01/20 07/01/20 Unknown History Sennosides 8.6 mg PO DAILY 07/01/20 07/01/20 Unknown History Xanax TAB 0.5 mg PO TID 07/01/20 07/01/20 Unknown History Active Meds: Active Medications Acetaminophen (Tylenol) 650 mg PO Q4H PRN PRN Reason: Pain MILD(1-3)/Fever >100.5/DUMONT Furosemide (Lasix) 40 mg IV QDAY NYLA Heparin Sodium (Porcine) (Heparin) 5,000 unit SUB-Q Q8HR NYLA Piperacillin Sod/Tazobactam Sod (Zosyn/Ns 4.5gm/100ml) 4.5 gm in 100 mls @ 200 mls/hr IV Q6HR NYLA; Protocol Insulin Glargine (Lantus) 20 units SUB-Q QHS NYLA Insulin Human Lispro (Humalog) 6 unit SUB-Q ACHS NYLA; Protocol Ondansetron HCl (Zofran) 4 mg IV Q8H PRN PRN Reason: Nausea And Vomiting Sodium Chloride (Sodium Chloride Flush Syringe 10 Ml) 10 ml IV BID NYLA Sodium Chloride (Sodium Chloride Flush Syringe 10 Ml) 10 ml IV PRN PRN PRN Reason: LINE FLUSH Exam - Constitutional General appearance: Present: no acute distress, well-nourished - EENT Eyes: Present: PERRL ENT: hearing intact, clear oral mucosa - Neck Neck: Present: supple, normal ROM - Respiratory Respiratory effort: normal Respiratory: bilateral: diminished - Cardiovascular Heart Sounds: Present: S1 & S2. Absent: rub, click - Extremities Extremities: pulses symmetrical, No edema Peripheral Pulses: within normal limits - Abdominal General gastrointestinal: Present: soft, non-tender, non-distended, normal bowel sounds Male genitourinary: Present: normal - Integumentary Integumentary: Present: clear, warm, dry - Musculoskeletal Musculoskeletal: gait normal, strength equal bilaterally - Psychiatric Psychiatric: appropriate mood/affect, intact judgment & insight - Neurologic Neurologic: CNII-XII intact, moves all extremities Assessment and Plan Assessment and plan: Patient Problems ---Acute respiratory failure with hypoxia Current Visit: Yes Status: Acute Plan to address problem: Continue oxygen supplementation 07/03. Chest xray shows scarring of the left lobe with no cloear pneumonia Has ddimer >1000. Us doppler and CTA chest ordered ProBNP is also elevated so lasix has been started Echo pending ---Poorly controlled Diabetes mellitus Current Visit: Yes Status: Acute Plan to address problem: Continue sliding scale insulin Lantus at night HbA1c 9.5 Endocrinology follow up in the office after discharge ---Leucocytosis Current Visit: Yes Status: Acute Plan to address problem: Check cxr, ua Start empirical antibiotics ---Thrombocytopenia Current Visit: Yes Status: Acute Plan to address problem: Trend platelets ---Tachycardia) Current Visit: Yes Status: Acute Plan to address problem: EKG ordered TSH Echocardiogram ---Hypothyroidism (acquired) Current Visit: Yes Status: Acute Plan to address problem: Reduce synthroid dose as TSH is low ---Rheumatoid arthritis Current Visit: Yes Status: Acute Plan to address problem: Continue low dose prednisone for now. Methotrexate weekly ---HTN (hypertension) Current Visit: Yes Status: Acute Plan to address problem: Lisinopril 5 mg daily ---Schizophrenia, paranoid type Current Visit: Yes Status: Acute Plan to address problem: Management as per primary team DVT prophylaxis - heparin Full code
[2020-07-04] MEDS ORDERED: FUROSEMIDE 40 MG/4 ML INJ IV SCH (17:00)
[2020-07-04] MEDS: PIPERACIL/TAZOBACTA 4.5/NS 100 4.5 GM/100 ML VIAL IV SCH (21:51)
[2020-07-04] MEDS: INSULIN LISPRO 100 UNIT/ML VIAL 3 mL SUB-Q SCH (21:52)
[2020-07-04] MEDS: INSULIN GLARGINE 100 UNITS/ML SUB-Q SCH (21:52)
[2020-07-04] MEDS: HEPARIN 5,000 UNIT/1 ML VIAL SUB-Q SCH (21:57)
[2020-07-05] MEDS ORDERED: ALPRAZolam 0.5 MG TAB PO ONE (00:19)
[2020-07-05] MEDS: PIPERACIL/TAZOBACTA 4.5/NS 100 4.5 GM/100 ML VIAL IV SCH ×3 (00:28→11:35)
[2020-07-05 01:40] LABS: INR 1.15 (0.87-1.13)
[2020-07-05] MEDS: HEPARIN 5,000 UNIT/1 ML VIAL SUB-Q SCH ×3 (06:12→22:00)
--- NOTE | 2020-07-05 09:21 | Consultation ---
History of Present Illness - Reason for Consult Consult date: 07/05/20 Reason for consult: tx from psych - History of Present Psychiatric Illness Dominick Luong is a 74y/o male patient who is known to me from his recent admission to [facility]. The patient was initially admitted to [facility] for aggression toward his , and paranoid behavior. The patient's mental health had improved while on the medical floor. He was transferred from [facility] to the medical floor for shortness of breath. During my interview with the patient this morning, he is lying in bed having an ultrasound performed. He is a/o x 3. He is cooperative. He makes good eye contact. He appears anxious. When asked about his mood, He states "my mood is fine, but I'm uncomfortable and in a lot of pain." The patient states "I didn't sleep good at all. I was uncomfortable all nigh." He denies SI/HI or hallucinations of any kind, stating, "no, no none of that." PAST PSYCHIATRIC HISTORY: Diagnoses: Unknown diagnosis Suicide attempts or Self-harm behavior: None reported Prior psychiatric hospitalizations: none reported Substance Abuse history: None reported Previous psychiatric medications tried: Yes, meds unknown Outpatient treatment: Yes PAST MEDICAL HISTORY: DM, HTN and RA Family Psychiatric History: None reported or documented SOCIAL HISTORY Marital Status: Living Arrangements: with Employment Status: retired Access to guns/weapons: Yes Education: College History of Abuse: none reported Legal History: none reported REVIEW OF SYSTEMS Constitutional: Negative for weight loss ENT: Negative for stridor Respiratory: Shortness of breath All other systems reviewed and are negative, except respirator MENTAL STATUS EXAMINATION General Appearance: Dressed appropriately Behavior: lying in bed, good eye contact, cooperative, but appears anxious Psychomotor Behavior: unremarkable and within normal limits Mood: "fine" Affect and affective range: Congruent with stated mood Thought Process: Goal directed Thought Content: Logical Speech: Normal volume, Regular rate and rhythm Suicidal Ideation: Denies SI Homicidal Ideation: Denies HI Hallucinations: Denies Delusions: None elicited Insight and Judgment: Limited insight and judgment Memory/Cognition: Limited Attention: Normal Orientation: Alert, oriented, ASSESSMENT Schizophrenia PLAN Continue meds from [facility] Olanzapine 7.5mg po daily yesterday Depakote 250mg po BID Trazodone 50mg po qhs Sitter: Defer to primary Medical: Per primary Disposition: Do not recommend acute inpatient psychiatric treatment at this time Will sing off. Please call with any questions or concerns. Thank you for this consult. Medications and Allergies Allergies Allergy/AdvReac Type Severity Reaction Status Date / Time hydroxyzine [From Vistaril] Allergy Unknown Verified 07/04/20 10:39 meperidine Allergy Unknown Verified 07/04/20 10:39 Home Medications Medication Instructions Recorded Confirmed Last Taken Type Aspirin EC 81 mg PO BID 07/01/20 07/01/20 Unknown History Duloxetine HCl 60 mg PO DAILY 07/01/20 07/01/20 Unknown History Folic Acid 1 mg PO DAILY 07/01/20 07/01/20 Unknown History Insulin Glargine 20 units SQ QHS 07/01/20 07/01/20 Unknown History Levothyroxine Sodium 112 mcg PO DAILY 07/01/20 07/01/20 Unknown History Meloxicam 15 mg PO DAILY 07/01/20 07/01/20 Unknown History Morphine Sulfate 15 mg PO QID 07/01/20 07/01/20 Unknown History Prednisone [predniSONE (Alana) ER 4 mg PO QDAY 07/01/20 07/01/20 Unknown History TAB] Prevacid 30 mg PO DAILY 07/01/20 07/01/20 Unknown History Quetiapine Fumarate 25 mg PO DAILY 07/01/20 07/01/20 Unknown History Sennosides 8.6 mg PO DAILY 07/01/20 07/01/20 Unknown History Xanax TAB 0.5 mg PO TID 07/01/20 07/01/20 Unknown History Active Meds: Active Medications Acetaminophen (Tylenol) 650 mg PO Q4H PRN PRN Reason: Pain MILD(1-3)/Fever >100.5/DUMONT Heparin Sodium (Porcine) (Heparin) 5,000 unit SUB-Q Q8HR [facility]LA Last Admin: 07/05/20 06:12 Dose: 5,000 unit Documented by: Piperacillin Sod/Tazobactam Sod (Zosyn/Ns 4.5gm/100ml) 4.5 gm in 100 mls @ 200 mls/hr IV Q6HR NYLA; Protocol Last Admin: 07/05/20 00:28 Dose: Not Given Documented by: Insulin Glargine (Lantus) 20 units SUB-Q QHS [facility]LA Last Admin: 07/04/20 21:52 Dose: 20 units Documented by: Insulin Human Lispro (Humalog) 6 unit SUB-Q ACHS [facility]; Protocol Last Admin: 07/04/20 21:52 Dose: 6 unit Documented by: Ondansetron HCl (Zofran) 4 mg IV Q8H PRN PRN Reason: Nausea And Vomiting Sodium Chloride (Sodium Chloride Flush Syringe 10 Ml) 10 ml IV BID [facility] Last Admin: 07/04/20 21:56 Dose: 10 ml Documented by: Sodium Chloride (Sodium Chloride Flush Syringe 10 Ml) 10 ml IV PRN PRN PRN Reason: LINE FLUSH Mental Status Exam - Vital signs Last Vital Signs Temp 98.3 F 07/05/20 08:00 Pulse 106 H 07/05/20 08:00 Resp 20 07/05/20 08:00 BP 122/65 07/05/20 08:00 Pulse Ox 96 07/05/20 08:00 Results Abnormal lab results 07/05/20 07/05/20 Range/Units 00:48 00:48 INR 1.15 H (0.87-1.13) NT-Pro-B Natriuret Pep 2870 H (0-900) pg/mL All other labs normal.
[2020-07-05 09:34] LABS: Albumin 3.5 g/dL (3.9-5); Calcium 8.7 mg/dL (8.4-10.2)
--- NOTE | 2020-07-05 09:36 | XRay Report ---
CHEST 1 VIEW INDICATION / CLINICAL INFORMATION: Hypoxia. COMPARISON: 07/03/2020 FINDINGS: SUPPORT DEVICES: None. HEART / MEDIASTINUM: Stable. LUNGS / PLEURA: Improved left lung base atelectasis. No pneumothorax. ADDITIONAL FINDINGS: Right shoulder arthroplasty and spinal shyanne are in stable position. IMPRESSION: 1. Improved left lung base atelectasis. Signer Name: Nguyễn Lawler MD Signed: 07/05/2020 9:31 AM Workstation Name: [id number]
[2020-07-05 09:41] LABS: Hematocrit 40.7 % (35.5-45.6); Hemoglobin 13.9 gm/dl (11.8-15.2); Mean Corpuscular HGB Conc 34 % (32-34); Mean Corpuscular Volume 101 fl (84-94); Platelet Count 158 K/mm3 (140-440); Red Blood Count 4.04 M/mm3 (3.65-5.03)
[2020-07-05 09:42] LABS: Basophils # (Auto) 0.1 K/mm3 (0.0-0.1); Basophils % (Auto) 0.3 % (0.0-1.8); Lymphocytes # (Auto) 1.7 K/mm3 (1.2-5.4); Lymphocytes % (Auto) 6.9 % (13.4-35.0); Monocytes # (Auto) 2.3 K/mm3 (0.0-0.8); Monocytes % (Auto) 9.4 % (0.0-7.3)
[2020-07-05] MEDS: INSULIN LISPRO 100 UNIT/ML VIAL 3 mL SUB-Q SCH ×5 (10:36→16:59)
[2020-07-05] MEDS: DIVALPROEX DR 250 MG TAB PO SCH ×2 (10:37→21:44)
[2020-07-05] MEDS ORDERED: DEXTROSE 50% IN WATER (25GM) 50 ML SYRINGE IV PRN (11:24)
--- NOTE | 2020-07-05 11:28 | Progress Note ---
Assessment and Plan Assessment and plan: 76 year old with a medical history of HTN, Hypothyroidism, RA, Schizophrenia who is being admitted from psych unit with complaints of shortness of breath. He was initially admitted to the unit due to his psych condition but he developed shortness of breath a day prior. He denies any chest pain or palpiations. 07/04. I saw patient in the psych unit today and he was on nasal cannula. He had no complaints. Decision was made to admit to the hospital as he has tachycardia and hypoxia. Work up has commenced. His chest xray performed on 07/03 shows no clear infiltrate but his labs shows leukocytosis with a left shift,elevated ddimer and probnp. Procalcitonin was positive and he was started on antibio tics. CTA chest ordered. 07/05. Patient seen and examined at bedside this morning. He has no complaints. He still on nasal cannula 2 L with sats in the 90s. PT/OT ordered. Still waiting for CTA chest to be performed. His labs this morning shows hyponatremia and EUSEBIA. Hold CTA chest - will get NM lung perfusion scan instead. Patient Problems ---Acute respiratory failure with hypoxia Current Visit: Yes Status: Acute Plan to address problem: Continue oxygen supplementation 07/03. Chest xray shows scarring of the left lobe with no clear pneumonia Has ddimer >1000. Us doppler and VQ scan pending. ProBNP elevated but patient looks dehydrated after Lasix was given so we will hold for now. Echo pending ---EUSEBIA Current Visit: Yes Status: Acute Plan to address problem: From vasomotor nephropathy Hold lasix and lisinopril for now Encourage oral hydration. Slow IV hydration for now Hold CTA chest due to impaired renal function Renal studies and electrolytes, eosinophils, protein creatinine ratio Nephrology consult ---Poorly controlled Diabetes mellitus Current Visit: Yes Status: Acute Plan to address problem: Continue sliding scale insulin Lantus at night HbA1c 9.5 Endocrinology follow up in the office after discharge ---Leucocytosis Current Visit: Yes Status: Acute Plan to address problem: Chest x-ray UA shows no clear infiltrate. Continue antibiotics as procalcitonin is elevated ---Thrombocytopenia Current Visit: Yes Status: Acute Plan to address problem: Trend platelets ---Rheumatoid arthritis Current Visit: Yes Status: Acute Plan to address problem: Continue low dose prednisone for now. Methotrexate weekly ---Hyponatremia Current Visit: Yes Status: Acute Plan to address problem: Possibly from lasix vs medications Trend sodium Check urin electrolytes and osmolality ---Hypothyroidism (acquired) Current Visit: Yes Status: Acute Plan to address problem: TSH <0.05 and T4 1.75 Reduce synthroid dose by half and have repeat TSH and T4 in 6 weeks ---Rheumatoid arthritis Current Visit: Yes Status: Acute Plan to address problem: Continue low dose prednisone for now. Methotrexate weekly ---HTN (hypertension) Current Visit: Yes Status: Acute Plan to address problem: Hold lisinopril for now due to bump in creatinine ---Schizophrenia, paranoid type Current Visit: Yes Status: Acute Plan to address problem: Management as per primary team DVT prophylaxis - heparin Full code History Interval history: 74-year-old male with a medical history of diabetes, hypertension, reported rheumatoid arthritis, schizophrenia admitted to the hospital with shortness of breath. He feels much better today. Denies any chest pain or palpitations Hospitalist Physical - Constitutional Vitals: Temp Pulse Resp BP Pulse Ox 98.3 F 106 H 20 122/65 96 07/05/20 08:00 07/05/20 08:00 07/05/20 08:00 07/05/20 08:00 07/05/20 08:00 General appearance: Present: no acute distress, well-nourished - EENT Eyes: Present: PERRL - Respiratory Respiratory: bilateral: diminished - Cardiovascular Heart Sounds: Present: S1 & S2 - Extremities Extremities: No edema - Abdominal General gastrointestinal: soft, non-tender, non-distended, normal bowel sounds - Psychiatric Psychiatric: appropriate mood/affect - Neurologic Neurologic: CNII-XII intact Results - Labs CBC & Chem 7: 07/05/20 08:19 07/05/20 08:19 Labs: Laboratory Last Values WBC 24.3 K/mm3 (4.5-11.0) H 07/05/20 08:19 RBC 4.04 M/mm3 (3.65-5.03) 07/05/20 08:19 Hgb 13.9 gm/dl (11.8-15.2) 07/05/20 08:19 Hct 40.7 % (35.5-45.6) D 07/05/20 08:19 MCV 101 fl (84-94) H 07/05/20 08:19 MCH 34 pg (28-32) H 07/05/20 08:19 MCHC 34 % (32-34) 07/05/20 08:19 RDW 14.0 % (13.2-15.2) 07/05/20 08:19 Plt Count 158 K/mm3 (140-440) 07/05/20 08:19 Lymph % (Auto) 6.9 % (13.4-35.0) L 07/05/20 08:19 [place] % (Auto) 9.4 % (0.0-7.3) H 07/05/20 08:19 Eos % (Auto) 0.0 % (0.0-4.3) 07/05/20 08:19 Baso % (Auto) 0.3 % (0.0-1.8) 07/05/20 08:19 Lymph # (Auto) 1.7 K/mm3 (1.2-5.4) 07/05/20 08:19 [place] # (Auto) 2.3 K/mm3 (0.0-0.8) H 07/05/20 08:19 Eos # (Auto) 0.0 K/mm3 (0.0-0.4) 07/05/20 08:19 Baso # (Auto) 0.1 K/mm3 (0.0-0.1) 07/05/20 08:19 Seg Neutrophils % 83.4 % (40.0-70.0) H 07/05/20 08:19 Seg Neutrophils # 20.3 K/mm3 (1.8-7.7) H 07/05/20 08:19 PT 14.8 Sec. (12.2-14.9) 07/05/20 00:48 INR 1.15 (0.87-1.13) H 07/05/20 00:48 Sodium 125 mmol/L (137-145) L 07/05/20 08:19 Potassium 3.6 mmol/L (3.6-5.0) 07/05/20 08:19 Chloride 85.2 mmol/L (98-107) L 07/05/20 08:19 Carbon Dioxide 18 mmol/L (22-30) L 07/05/20 08:19 Anion Gap 25 mmol/L 07/05/20 08:19 BUN 79 mg/dL (9-20) H 07/05/20 08:19 Creatinine 1.6 mg/dL (0.8-1.3) H 07/05/20 08:19 Estimated GFR 42 ml/min 07/05/20 08:19 BUN/Creatinine Ratio 49 % 07/05/20 08:19 Glucose 380 mg/dL (75-100) H 07/05/20 08:19 Calcium 8.7 mg/dL (8.4-10.2) 07/05/20 08:19 Total Bilirubin 1.20 mg/dL (0.1-1.2) 07/05/20 08:19 AST 34 units/L (5-40) 07/05/20 08:19 ALT 25 units/L (7-56) 07/05/20 08:19 Alkaline Phosphatase 75 units/L (35-129) 07/05/20 08:19 NT-Pro-B Natriuret Pep 2870 pg/mL (0-900) H 07/05/20 00:48 Total Protein 5.3 g/dL (6.3-8.2) L 07/05/20 08:19 Albumin 3.5 g/dL (3.9-5) L 07/05/20 08:19 Albumin/Globulin Ratio 1.9 % 07/05/20 08:19 Procalcitonin 0.46 ng/mL (<0.15) 07/04/20 19:41 Hollis/IV: Voiding Method Urinal IV Catheter Type [Right Hand] Peripheral IV IV Catheter Type [Right INT / Saline Lock Antecubital] Active Medications - Current Medications Current Medications: Generic Name Dose Route Start Last Admin Trade Name Freq PRN Reason Stop Dose Admin Acetaminophen 650 mg 07/04/20 16:08 Tylenol PO Q4H PRN Pain MILD(1-3)/Fever >100.5/DUMONT Dextrose 50 ml 07/05/20 11:24 D50w (25gm) Syringe IV Q30MIN PRN Hypoglycemia Protocol Divalproex Sodium 250 mg 07/05/20 10:00 07/05/20 10:[address] PO 250 mg BID [facility]LA Administration Heparin Sodium (Porcine) 5,000 unit 07/04/20 22:00 07/05/20 06:12 Heparin SUB-Q 5,000 unit Q8HR [facility]LA Administration Piperacillin Sod/Tazobactam Sod 4.5 gm in 100 mls @ 200 mls/hr 07/04/20 18:00 07/05/20 00:28 Zosyn/Ns 4.5gm/100ml IV Not Given Q6HR [facility] Protocol Insulin Glargine 20 units 07/04/20 22:00 07/04/20 21:52 Lantus SUB-Q 20 units QHS [facility]LA Administration Insulin Human Lispro 6 unit 07/04/20 16:30 07/05/20 10:36 Humalog SUB-Q 6 unit ACHS [facility] Administration Protocol Olanzapine 7.5 mg 07/05/20 10:00 Zyprexa PO QDAY [facility]LA Ondansetron HCl 4 mg 07/04/20 16:08 07/05/20 10:38 Zofran IV 4 mg Q8H PRN Administration Nausea And Vomiting Sodium Chloride 10 ml 07/04/20 22:00 07/05/20 10:37 Sodium Chloride Flush Syringe 10 Ml IV 10 ml BID [facility]LA Administration Sodium Chloride 10 ml 07/04/20 16:08 Sodium Chloride Flush Syringe 10 Ml IV PRN PRN LINE FLUSH Trazodone HCl 50 mg 07/05/20 22:00 Desyrel PO QHS [facility]
[2020-07-05] MEDS ORDERED: SODIUM CHLORIDE 0.9% 1000 ML 1,000 ML IV SCH (11:45)
[2020-07-05 14:31] LABS: Creatinine,Urine 54.8 mg/dL (0.1-20.0)
[2020-07-05 15:26] LABS: Protein/Creatinine Ratio,Urine 0.35
[2020-07-05] MEDS ORDERED: SODIUM CHLORIDE 0.9% 1000 ML 1,000 ML IV ONE (20:16)
[2020-07-05] MEDS: traZODone 50 MG TAB PO SCH (21:44)
[2020-07-05] MEDS: PIPERACIL-TAZO 2.25 GM/50 ML 2.25 GM/50 ML BAG IV SCH (22:00)
[2020-07-05] MEDS: INSULIN GLARGINE 100 UNITS/ML SUB-Q SCH (22:03)
[2020-07-06] MEDS: INSULIN LISPRO 100 UNIT/ML VIAL 3 mL SUB-Q SCH ×5 (00:50→22:01)
[2020-07-06 01:38] LABS: Hematocrit 37.9 % (35.5-45.6); Hemoglobin 12.7 gm/dl (11.8-15.2); Mean Corpuscular HGB Conc 33 % (32-34); Mean Corpuscular Volume 102 fl (84-94); Platelet Count 169 K/mm3 (140-440); Red Cell Distribution Width 14.1 % (13.2-15.2)
[2020-07-06 01:55] LABS: Albumin 3.5 g/dL (3.9-5); Calcium 8.2 mg/dL (8.4-10.2)
[2020-07-06 04:08] LABS: Monocytes % (Manual) 6.5 % (0.0-7.3); Total Cells Counted 200
[2020-07-06 04:09] LABS: Anisocytosis 1+; Band Neutrophils # (Manual) 0.5 K/mm3; Basophils % (Manual) 0 % (0.0-1.8); Eosinophils % (Manual) 0 % (0.0-4.3); Macrocytosis 1+; Platelet Estimate Consistent w Auto
[2020-07-06] MEDS: PIPERACIL-TAZO 2.25 GM/50 ML 2.25 GM/50 ML BAG IV SCH ×4 (05:00→18:29)
[2020-07-06] MEDS: HEPARIN 5,000 UNIT/1 ML VIAL SUB-Q SCH (05:56)
[2020-07-06] MEDS ORDERED: LEVOTHYROXINE 50 MCG TAB PO SCH (06:00)
--- NOTE | 2020-07-06 07:53 | Nuclear Medicine Report ---
PERFUSION LUNG SCAN HISTORY: Pulmonary embolus, shortness of breath COMPARISON: AP chest 07/05/2020 IMPRESSION: 5.5 mCi of technetium 99m MAA was administered intravenously. Multiple projections of the chest were obtained. No segmental perfusion defect extending to the pleural surface is detected to s uggest pulmonary embolus. Linear artifact on the right lateral projection is noted from right shoulde r arthroplasty. Signer Name: Matt Merritt Jr, MD Signed: 07/06/2020 7:48 AM Workstation Name: [id number]
[2020-07-06] MEDS ORDERED: POTASSIUM CHLORIDE ER 20 MEQ TAB PO ONE (08:00)
[2020-07-06] MEDS: DIVALPROEX DR 250 MG TAB PO SCH ×2 (09:53→22:00)
--- NOTE | 2020-07-06 12:35 | Vascular Lab Report ---
DUPLEX DOPPLER LOWER EXTREMITY VEINS, BILATERAL INDICATION: DVT. TECHNIQUE: Duplex doppler imaging was performed through the veins of both lower extremities using ve nous compression and other maneuvers. COMPARISON: No relevant prior imaging study available. FINDINGS: Right Common femoral vein: Negative. Right Superficial femoral vein: Negative. Right Popliteal vein: Negative. Right Calf veins: Negative. Left Common femoral vein: Negative. Left Superficial femoral vein: Negative. Left Popliteal vein: Negative. Left Calf veins: Negative. Additional findings: None. IMPRESSION: No sonographic evidence for DVT in either lower extremity. Signer Name: Matt Merritt Jr, MD Signed: 07/06/2020 12:31 PM Workstation Name: [id number]
--- NOTE | 2020-07-06 12:40 | Progress Note ---
Assessment and Plan Assessment and plan: 76 year old with a medical history of HTN, Hypothyroidism, RA, Schizophrenia who is being admitted from psych unit with complaints of shortness of breath. He was initially admitted to the unit due to his psych condition but he developed shortness of breath a day prior. He denies any chest pain or palpiations. 07/04. I saw patient in the psych unit today and he was on nasal cannula. He had no complaints. Decision was made to admit to the hospital as he has tachycardia and hypoxia. Work up has commenced. His chest xray performed on 07/03 shows no clear infiltrate but his labs shows leukocytosis with a left shift,elevated ddimer and probnp. Procalcitonin was positive and he was started on antibiot ics. CTA chest ordered. 07/05. Patient seen and examined at bedside this morning. He has no complaints. He still on nasal cannula 2 L with sats in the 90s. PT/OT ordered. Still waiting for CTA chest to be performed. His labs this morning shows hyponatremia and EUSEBIA. Hold CTA chest - will get NM lung perfusion scan instead. 07/06. NM lung scan is negative for PE. Labs shows hyponatremia and hypokalemia. Hb drop noted. RN reports dark tarry stool. Will hold heparin for now. Stool guaiac ordered. GI eval Patient Problems ---Acute respiratory failure with hypoxia Current Visit: Yes Status: Acute Plan to address problem: Continue oxygen supplementation 07/03. Chest xray shows scarring of the left lobe with no clear pneumonia NM lung scan -ve for PE. Echo pending ---Poorly controlled Diabetes mellitus Current Visit: Yes Status: Acute Plan to address problem: Continue sliding scale insulin Lantus at night HbA1c 9.5 Endocrinology follow up in the office after discharge ---Leucocytosis Current Visit: Yes Status: Acute Plan to address problem: Possibly from steroids but procalcitonin is elevated and he is hypoxic Started on empirical antibiotics Likely has PNA, will repeat chest xray today ---Hyponatremia Current Visit: Yes Status: Acute Plan to address problem: Trend Osmolality serum and urine ordered Urine lytes ---Tachycardia Current Visit: Yes Status: Acute Plan to address problem: TSH is low Hold synthroid for now due to tachycardia. Will resume when better ---Hypothyroidism (acquired) Current Visit: Yes Status: Acute Plan to address problem: Hold synthroid for now Needs a repeat TSH in 6-8 weeks ---Hemoglobin drop Current Visit: Yes Status: Acute Plan to address problem: Has dark tarry stool as per RN Start PPI Stool guaiac. GI consult ---Rheumatoid arthritis Current Visit: Yes Status: Acute Plan to address problem: Continue low dose prednisone for now. Methotrexate weekly ---HTN (hypertension) Current Visit: Yes Status: Acute Plan to address problem: Lisinopril 5 mg daily ---Schizophrenia, paranoid type Current Visit: Yes Status: Acute Plan to address problem: Management as per primary team DVT prophylaxis - heparin Full code History Interval history: 74-year-old male with a medical history of diabetes, hypertension, reported rheumatoid arthritis, schizophrenia admitted to the hospital with shortness of breath. Had negative chest xray and VQ scan. Started on antibiotics due to elevated WBC and procalcitonin. Will repeat chest xray today as he has some course breath sounds on the right. Continue zosyn for now Hospitalist Physical - Constitutional Vitals: Temp Pulse Resp BP Pulse Ox 97.3 F L 110 H 18 126/68 98 07/05/20 23:04 07/06/20 05:05 07/06/20 05:05 07/06/20 05:05 07/06/20 05:05 General appearance: Present: no acute distress, well-nourished - EENT Eyes: Present: PERRL - Neck Neck: Present: supple - Respiratory Respiratory: right: other (coarse breath sounds) - Cardiovascular Heart Sounds: Present: S1 & S2 - Extremities Extremities: No edema - Abdominal General gastrointestinal: soft, non-tender, non-distended, normal bowel sounds - Psychiatric Psychiatric: appropriate mood/affect - Neurologic Neurologic: CNII-XII intact Results - Labs CBC & Chem 7: 07/06/20 01:00 07/06/20 01:00 Labs: Laboratory Last Values WBC 22.8 K/mm3 (4.5-11.0) H 07/06/20 01:00 RBC 3.70 M/mm3 (3.65-5.03) 07/06/20 01:00 Hgb 12.7 gm/dl (11.8-15.2) 07/06/20 01:00 Hct 37.9 % (35.5-45.6) 07/06/20 01:00 MCV 102 fl (84-94) H 07/06/20 01:00 MCH 34 pg (28-32) H 07/06/20 01:00 MCHC 33 % (32-34) 07/06/20 01:00 RDW 14.1 % (13.2-15.2) 07/06/20 01:00 Plt Count 169 K/mm3 (140-440) 07/06/20 01:00 Lymph % (Auto) 6.9 % (13.4-35.0) L 07/05/20 08:19 [place] % (Auto) 9.4 % (0.0-7.3) H 07/05/20 08:19 Eos % (Auto) 0.0 % (0.0-4.3) 07/05/20 08:19 Baso % (Auto) 0.3 % (0.0-1.8) 07/05/20 08:19 Lymph # (Auto) 1.7 K/mm3 (1.2-5.4) 07/05/20 08:19 [place] # (Auto) 2.3 K/mm3 (0.0-0.8) H 07/05/20 08:19 Eos # (Auto) 0.0 K/mm3 (0.0-0.4) 07/05/20 08:19 Baso # (Auto) 0.1 K/mm3 (0.0-0.1) 07/05/20 08:19 Add Manual Diff Complete 07/06/20 01:00 Total Counted 200 07/06/20 01:00 Seg Neutrophils % 83.4 % (40.0-70.0) H 07/05/20 08:19 Seg Neuts % (Manual) 83.0 % (40.0-70.0) H 07/06/20 01:00 Band Neutrophils % 2.0 % 07/06/20 01:00 Lymphocytes % (Manual) 8.5 % (13.4-35.0) L 07/06/20 01:00 Reactive Lymphs % (Man) 0 % 07/06/20 01:00 Monocytes % (Manual) 6.5 % (0.0-7.3) 07/06/20 01:00 Eosinophils % (Manual) 0 % (0.0-4.3) 07/06/20 01:00 Basophils % (Manual) 0 % (0.0-1.8) 07/06/20 01:00 Metamyelocytes % 0 % 07/06/20 01:00 Myelocytes % 0 % 07/06/20 01:00 Promyelocytes % 0 % 07/06/20 01:00 Blast Cells % 0 % 07/06/20 01:00 Nucleated RBC % Not Reportable 07/06/20 01:00 Seg Neutrophils # 20.3 K/mm3 (1.8-7.7) H 07/05/20 08:19 Seg Neutrophils # Man 18.9 K/mm3 (1.8-7.7) H 07/06/20 01:00 Band Neutrophils # 0.5 K/mm3 07/06/20 01:00 Lymphocytes # (Manual) 1.9 K/mm3 (1.2-5.4) 07/06/20 01:00 Abs React Lymphs (Man) 0.0 K/mm3 07/06/20 01:00 Monocytes # (Manual) 1.5 K/mm3 (0.0-0.8) H 07/06/20 01:00 Eosinophils # (Manual) 0.0 K/mm3 (0.0-0.4) 07/06/20 01:00 Basophils # (Manual) 0.0 K/mm3 (0.0-0.1) 07/06/20 01:00 Metamyelocytes # 0.0 K/mm3 07/06/20 01:00 Myelocytes # 0.0 K/mm3 07/06/20 01:00 Promyelocytes # 0.0 K/mm3 07/06/20 01:00 Blast Cells # 0.0 K/mm3 07/06/20 01:00 WBC Morphology Not Reportable 07/06/20 01:00 Hypersegmented Neuts Not Reportable 07/06/20 01:00 Hyposegmented Neuts Not Reportable 07/06/20 01:00 Hypogranular Neuts Not Reportable 07/06/20 01:00 Smudge Cells Not Reportable 07/06/20 01:00 Toxic Granulation Not Reportable 07/06/20 01:00 Toxic Vacuolation Not Reportable 07/06/20 01:00 Dohle Bodies Not Reportable 07/06/20 01:00 Pelger-Huet Anomaly Not Reportable 07/06/20 01:00 Faiza Rods Not Reportable 07/06/20 01:00 Platelet Estimate Consistent w auto 07/06/20 01:00 Clumped Platelets Not Reportable 07/06/20 01:00 Plt Clumps, EDTA Not Reportable 07/06/20 01:00 Large Platelets Not Reportable 07/06/20 01:00 Giant Platelets Not Reportable 07/06/20 01:00 Platelet Satelliting Not Reportable 07/06/20 01:00 Plt Morphology Comment Not Reportable 07/06/20 01:00 RBC Morphology Not Reportable 07/06/20 01:00 Dimorphic RBCs Not Reportable 07/06/20 01:00 Polychromasia Not Reportable 07/06/20 01:00 Hypochromasia Not Reportable 07/06/20 01:00 Poikilocytosis Not Reportable 07/06/20 01:00 Anisocytosis 1+ 07/06/20 01:00 Microcytosis Not Reportable 07/06/20 01:00 Macrocytosis 1+ 07/06/20 01:00 Spherocytes Not Reportable 07/06/20 01:00 Pappenheimer Bodies Not Reportable 07/06/20 01:00 Sickle Cells Not Reportable 07/06/20 01:00 Target Cells Not Reportable 07/06/20 01:00 Tear Drop Cells Not Reportable 07/06/20 01:00 Ovalocytes Not Reportable 07/06/20 01:00 Helmet Cells Not Reportable 07/06/20 01:00 [place] Bodies Not Reportable 07/06/20 01:00 [place] Rings Not Reportable 07/06/20 01:00 Conrad Cells Not Reportable 07/06/20 01:00 Bite Cells Not Reportable 07/06/20 01:00 Crenated Cell Not Reportable 07/06/20 01:00 Elliptocytes Not Reportable 07/06/20 01:00 Acanthocytes (Spur) Not Reportable 07/06/20 01:00 Rouleaux Not Reportable 07/06/20 01:00 Hemoglobin C Crystals Not Reportable 07/06/20 01:00 Schistocytes Not Reportable 07/06/20 01:00 Malaria parasites Not Reportable 07/06/20 01:00 Jakob Bodies Not Reportable 07/06/20 01:00 Hem Pathologist Commnt No 07/06/20 01:00 PT 14.8 Sec. (12.2-14.9) 07/05/20 00:48 INR 1.15 (0.87-1.13) H 07/05/20 00:48 ABG pH 7.392 (7.320-7.450) 07/05/20 20:45 POC ABG pCO2 32.1 mmHg (32.0-48.0) 07/05/20 20:45 POC ABG pO2 107.4 mmHg (83-108) 07/05/20 20:45 POC ABG HCO3 19.1 07/05/20 20:45 POC ABG Base Excess -4.9 07/05/20 20:45 ABG Hemoglobin 12.7 (12.0-17.5) 07/05/20 20:45 ABG Oxyhemoglobin 97.2 (94-98) 07/05/20 20:45 ABG Methemoglobin 0.3 (0.0-1.5) 07/05/20 20:45 Carboxyhemoglobin 0.4 (0.5-1.5) L 07/05/20 20:45 FiO2 40 07/05/20 20:45 Sodium 126 mmol/L (137-145) L 07/06/20 01:00 Potassium 3.1 mmol/L (3.6-5.0) L D 07/06/20 01:00 Chloride 87.5 mmol/L (98-107) L 07/06/20 01:00 Carbon Dioxide 21 mmol/L (22-30) L 07/06/20 01:00 Anion Gap 21 mmol/L 07/06/20 01:00 BUN 75 mg/dL (9-20) H 07/06/20 01:00 Creatinine 1.5 mg/dL (0.8-1.3) H 07/06/20 01:00 Estimated GFR 46 ml/min 07/06/20 01:00 BUN/Creatinine Ratio 50 % 07/06/20 01:00 Glucose 214 mg/dL (75-100) H 07/06/20 01:00 POC Glucose 174 (70-105) H 07/06/20 12:36 Osmolality 300 Mosm/kg 07/06/20 01:00 Calcium 8.2 mg/dL (8.4-10.2) L 07/06/20 01:00 Total Bilirubin 0.80 mg/dL (0.1-1.2) 07/06/20 01:00 AST 25 units/L (5-40) 07/06/20 01:00 ALT 23 units/L (7-56) 07/06/20 01:00 Alkaline Phosphatase 64 units/L (35-129) 07/06/20 01:00 NT-Pro-B Natriuret Pep 2870 pg/mL (0-900) H 07/05/20 00:48 Total Protein 5.0 g/dL (6.3-8.2) L 07/06/20 01:00 Albumin 3.5 g/dL (3.9-5) L 07/06/20 01:00 Albumin/Globulin Ratio 2.3 % 07/06/20 01:00 Vitamin B12 1460 pg/mL (211-911) H 07/06/20 01:00 Folate 12.59 ng/mL (7.3-26.0) 07/06/20 01:00 Procalcitonin 0.46 ng/mL (<0.15) 07/04/20 19:41 Urine Eosinophils None seen (None Seen) 07/05/20 14:15 Urine Osmolality 485 Mosm/kg 07/05/20 14:15 Urine Creatinine 54.8 mg/dL (0.1-20.0) H 07/05/20 14:15 Protein/Creatinin Ratio 0.35 07/05/20 14:15 Urine Total Protein 19 mg/dL (5-11.8) H 07/05/20 14:15 - Diagnostic Impressions Diagnostic Impressions: Echocardiogram 07/04/20 16:16 Transthoracic Echocardiogram Indication: CHF BP: 123/69 Conclusions *THE PT IS TACHYCARDIC *EF 45-50% *MILD LVH *DIASTOLIC FUNCTION COULD NOT BE DETERMINED *AORTIC VALVE: MINIMAL STENOSIS MILD AI *R. HEART STRUCTURES NOT SEEN WELL *CONSIDER AMEENA Findings Left Ventricle: The left ventricular chamber size is normal. Mild concentric left ventricular hypertrophy is observed. There is diffuse global hypokinesis of the left ventricle. The estimated ejection fraction is 45-50%. Left Atrium: The left atrial chamber size is normal. Right Ventricle: The right ventricular cavity size is normal. The right ventricular global systolic function is normal. Right Atrium: The right atrial cavity size is normal. Aortic Valve: The aortic valve is trileaflet. There is mild thickening of the left coronary cusp. There is mild thickening of the right coronary cusp. There is mild thickening of the non coronary cusp. Systolic excursion of the aortic valve cusps is reduced. Moderate aortic cusp sclerosis is present. There is mild aortic regurgitation. There is mild aortic stenosis. Mitral Valve: The mitral valve leaflets appear normal. There is mild mitral regurgitation. Tricuspid Valve: The tricuspid valve leaflets are normal. There is trace tricuspid regurgitation. Pulmonic Valve: The pulmonic valve appears normal. There is trace pulmonic regurgitation. Pericardium: The pericardium appears normal. Aorta: There is no dilatation of the aortic root. Measurements Chambers 2D Name Value Normal Range IVSd (2D) 1.12 cm (0.6 - 1.1) LVPWd (2D) 1.11 cm (0.6 - 1.1) LVIDd (2D) 4.72 cm (3.7 - 5.6) LVIDs (2D) 4.15 cm (2 - 3.8) LV FS (2D) 12.13 % - EF Teichholz (2D) 26.22 % - Ao root diameter (2D) 3.58 cm (2 - 3.7) Volumes/Mass Name Value Normal Range LA ESV SP 4CH (A/L) 23.85 ml - LA ESV SP 2CH (A/L) 20.96 ml - LA ESV BP (A/L) 25.83 ml - LA ESV SP 4CH (MOD) 21.59 ml - LA ESV SP 2CH (MOD) 20.26 ml - LV EDV SP 4CH (MOD) 87.92 ml - LV ESV SP 4CH (MOD) 37.48 ml - EF SP 4CH (MOD) 57.37 % - LV EDV SP 2CH (MOD) 25.91 ml - LV ESV SP 2CH (MOD) 17.03 ml - EF SP 2CH (MOD) 34.27 % - LV EDV BP 54.13 ml - LV ESV BP 27.72 ml - BP EF (MOD) 48.79 % - Aortic Valve Name Value Normal Range AV Vmax 1.16 m/sec - AV VTI 16.08 cm - AV peak gradient 5.34 mmHg - AV mean gradient 2.54 mmHg - LVOT diameter 2.41 cm - LVOT Vmax 1.1 m/sec - LVOT VTI 13.43 cm - LVOT peak gradient 4.8 mmHg - LVOT mean gradient 1.8 mmHg - SV LVOT 61.45 ml - SYED (continuity Vmax) 4.34 cm2 - SYED (continuity VTI) 3.82 cm2 - AR PHT 359.99 msec - AR peak gradient 42.29 mmHg - Pulmonic Valve/Qp:Qs Name Value Normal Range PV Vmax 1.01 m/sec - PV peak gradient 4.07 mmHg - IN end-diastolic Vmax 1.36 m/sec - PV acceleration time 110.37 msec - Hollis/IV: Voiding Method Condom Catheter IV Catheter Type [Right Hand] Peripheral IV IV Catheter Type [Right INT / Saline Lock Antecubital] Active Medications - Current Medications Current Medications: Generic Name Dose Route Start Last Admin Trade Name Freq PRN Reason Stop Dose Admin Acetaminophen 650 mg 07/04/20 16:08 Tylenol PO Q4H PRN Pain MILD(1-3)/Fever >100.5/DUMONT Dextrose 50 ml 07/05/20 11:24 D50w (25gm) Syringe IV Q30MIN PRN Hypoglycemia Protocol Divalproex Sodium 250 mg 07/05/20 10:00 07/06/20 09:[address] PO 250 mg BID NYLA Administration Heparin Sodium (Porcine) 5,000 unit 07/04/20 22:00 07/06/20 05:56 Heparin SUB-Q 5,000 unit Q8HR NYLA Administration Piperacillin Sod/Tazobactam Sod 2.25 gm in 50 mls @ 100 mls/hr 07/05/20 18:00 07/06/20 12:35 Zosyn/Ns 2.25 Gm/50ml IV 100 mls/hr Q6HR NYLA Administration Insulin Glargine 20 units 07/04/20 22:00 07/05/20 22:03 Lantus SUB-Q 20 units QHS NYLA Administration Insulin Human Lispro 6 unit 07/04/20 16:30 07/06/20 12:36 Humalog SUB-Q Not Given ACHS NYLA Protocol Levothyroxine Sodium 50 mcg 07/06/20 06:00 07/06/20 05:56 Synthroid PO 50 mcg DAILY@0600 NYLA Administration Olanzapine 7.5 mg 07/05/20 10:00 07/06/20 09:53 Zyprexa PO 7.5 mg QDAY NYLA Administration Ondansetron HCl 4 mg 07/04/20 16:08 07/05/20 10:38 Zofran IV 4 mg Q8H PRN Administration Nausea And Vomiting Sodium Chloride 10 ml 07/04/20 22:00 07/06/20 09:53 Sodium Chloride Flush Syringe 10 Ml IV 10 ml BID NYLA Administration Sodium Chloride 10 ml 07/04/20 16:08 Sodium Chloride Flush Syringe 10 Ml IV PRN PRN LINE FLUSH Trazodone HCl 50 mg 07/05/20 22:00 07/05/20 21:44 Desyrel PO Not Given QHS [facility] Nutrition/Malnutrition Assess - Dietary Evaluation Nutrition/Malnutrition Findings: Nutrition Notes Start: 07/06/20 10:29 Freq: Status: Active Protocol: Document 07/06/20 10:29 DEAN (Rec: 07/06/20 10:34 [facility]- [id number]) Nutrition Notes Need for Assessment generated from: MD Order,Education Initial or Follow up Brief Note Current Diagnosis Diabetes,Hypertension Other Pertinent Diagnosis Acute resp failure, tachycardia, RA, paranoid schizophrenia Current Diet Consistent CHO Labs/Tests A1C 9.5 K 3.1 BUN 75 Cr 1.5 Height 5 ft 6 in Weight 70.3 kg [place] Body Weight (kg) 64.54 BMI 25.0 Weight Status Appropriate Subjective/Other Information RD consulted for diet education. Pt admitted from GeriPsych unit. Per MD, pt with poorly controlled DM. VQ scan scheduled this am. Minimum of two criteria No Is patient on ventilator? No Is Patient Ambulatory and/or Out of Bed No REE-([place]-St. Jeor-confined to bed) [phone] Calculation Used for [facility]ations [facility] Additional Notes Pro needs 1-1.2g/k-84g/ day Fluid needs 1ml/kcal Nutrition Intervention Anticipated Discharge Needs: CHO-controlled diet Follow-Up By: 07/07/20 Additional Comments F/U: DM diet education needs/ appropriateness for diet education
--- NOTE | 2020-07-06 14:07 | XRay Report ---
CHEST 1 VIEW INDICATION: Coarse breath sounds on the right. COMPARISON: 07/05/2020 FINDINGS: Support devices: None. Heart: Stable mild cardiomegaly with left ventricular predominance. Lungs/Pleura: There is poor inspiration. The lungs are generally clear. No evidence for infiltrate, p leural effusion or pneumothorax. Additional findings: None. IMPRESSION: No acute findings. Mild cardiomegaly. Signer Name: Matt Merritt Jr, MD Signed: 07/06/2020 2:02 PM Workstation Name: [id number]
[2020-07-06] MEDS: SODIUM CHLORIDE 1 GM TAB PO SCH ×2 (18:28→22:00)
[2020-07-06] MEDS: PANTOPRAZOLE 40 MG INJ IV SCH ×2 (18:32→22:00)
[2020-07-06] MEDS ORDERED: FUROSEMIDE 20 MG/2 ML INJ IV ONE (21:30)
[2020-07-06] MEDS: traZODone 50 MG TAB PO SCH (22:00)
[2020-07-06] MEDS: INSULIN GLARGINE 100 UNITS/ML SUB-Q SCH (22:00)
[2020-07-07] MEDS: PIPERACIL-TAZO 2.25 GM/50 ML 2.25 GM/50 ML BAG IV SCH ×3 (00:57→11:30)
[2020-07-07 03:05] LABS: Basophils # (Auto) 0.1 K/mm3 (0.0-0.1); Basophils % (Auto) 0.3 % (0.0-1.8); Eosinophils % (Auto) 0.2 % (0.0-4.3); Hematocrit 30.8 % (35.5-45.6); Hemoglobin 10.4 gm/dl (11.8-15.2); Lymphocytes # (Auto) 2.1 K/mm3 (1.2-5.4); Lymphocytes % (Auto) 10.6 % (13.4-35.0); Mean Corpuscular HGB Conc 34 % (32-34); Mean Corpuscular Volume 101 fl (84-94); Monocytes # (Auto) 2.3 K/mm3 (0.0-0.8); Monocytes % (Auto) 11.3 % (0.0-7.3); Platelet Count 174 K/mm3 (140-440); Red Blood Count 3.04 M/mm3 (3.65-5.03); Red Cell Distribution Width 14.2 % (13.2-15.2)
[2020-07-07 03:48] LABS: Albumin 3.4 g/dL (3.9-5); Calcium 8.2 mg/dL (8.4-10.2)
--- NOTE | 2020-07-07 07:04 | Ultrasound Report ---
ULTRASOUND RENAL INDICATION / CLINICAL INFORMATION: EUSEB[place]. COMPARISON: None available. FINDINGS: RIGHT KIDNEY: Length = 10.5 cm. - Echogenicity: Normal. - Cortical Thickness: Normal. - Hydronephrosis: None. - Cyst or mass: Right upper pole cyst measures 1.7 x 2.0 cm. - Stones: Calcified stones are noted in the upper pole measuring 9 mm and 1 cm respectively. LEFT KIDNEY: Length = 9.5 cm. - Echogenicity: Normal. - Cortical Thickness: Normal. - Hydronephrosis: None. - Cyst or mass: Multiple left-sided simple renal cysts, the largest measuring 3.0 x 3.3 cm. - Stones: Calcified stones are noted in the left pelvicalyceal system measuring 8 mm and 1 cm respect ively. URINARY BLADDER: No significant abnormality. FREE FLUID: None. ADDITIONAL FINDINGS: None. IMPRESSION: 1. Bilateral calcified renal stone burden within the pelvicalyceal system. No evidence of hydronephro sis. 2. Multiple bilateral simple renal cysts. Signer Name: Nguyễn Lawler MD Signed: 07/06/2020 9:32 AM Workstation Name: [id number]
[2020-07-07] MEDS: INSULIN LISPRO 100 UNIT/ML VIAL 3 mL SUB-Q SCH ×4 (08:00→23:34)
[2020-07-07] MEDS ORDERED: POTASSIUM CHLORIDE ER 20 MEQ TAB PO ONE (10:00)
[2020-07-07] MEDS ORDERED: LEVOTHYROXINE SODIUM 112 MCG PO SCH (10:00)
[2020-07-07] MEDS: PANTOPRAZOLE 40 MG INJ IV SCH ×2 (11:33→22:08)
[2020-07-07] MEDS: DIVALPROEX DR 250 MG TAB PO SCH ×2 (11:33→21:48)
[2020-07-07] MEDS: SODIUM CHLORIDE 1 GM TAB PO SCH ×2 (11:33→21:48)
[2020-07-07] MEDS ORDERED: PIPERACIL/TAZOBACTA 4.5/NS 100 4.5 GM/100 ML VIAL IV SCH (14:00)
[2020-07-07] MEDS: LEVOTHYROXINE 112 MCG TAB PO SCH (14:23)
[2020-07-07] MEDS: ACETAMINOPHEN 325 MG TAB PO PRN (14:40)
--- NOTE | 2020-07-07 16:33 | Progress Note ---
Assessment and Plan ---Acute respiratory failure with hypoxia Likely from PNA vs CHF exacerbation Continue oxygen supplementation 07/03. Chest xray shows scarring of the left lobe with no clear pneumonia or pulmonary edema NM lung scan -ve for PE. Echo with 45% EF ---Poorly controlled Diabetes mellitus Continue sliding scale insulin, Lantus at night HbA1c 9.5 Endocrinology follow up in the office after discharge ---Leucocytosis Possibly from steroids but procalcitonin is elevated and he is hypoxic Started on empirical antibiotics, off steroid We will also consult ID for further management ---Hyponatremia Trend, Osmolality serum and urine ordered --Sinus Tachycardia likely from respiratory failure. cont to follow ---Hypothyroidism (acquired) cont synthroid , order TSH and T4 ---Hemoglobin drop/ Upper GI bleed Has dark tarry stool as per RN cont PPI Stool +ve guaiac. GI consulted -patient does not want any endoscopy at this time ---Rheumatoid arthritis Methotrexate weekly, off steroid for now ---HTN (hypertension) Lisinopril 5 mg daily ---Schizophrenia, paranoid type Management as per psych DVT prophylaxis - heparin Full code Brief History 76 year old with a medical history of HTN, Hypothyroidism, RA, Schizophrenia who is being admitted from psych unit with complaints of shortness of breath. He was initially admitted to the psych unit due to his psych condition but he developed shortness of breath and bthen admitted to medicine floor. 07/04. Evaluated patient in the psych unit today and he was on nasal cannula. He had no complaints. Decision was made to admit to the hospital as he has tachyc ardia and hypoxia. Work up has commenced. His chest xray performed on 07/03 shows no clear infiltrate but his labs shows leukocytosis with a left shift,elevated ddimer and probnp. Procalcitonin was positive and he was started on antibiotics. CTA chest ordered. 07/05. Patient seen and examined at bedside this morning. He has no complaints. He still on nasal cannula 2 L with sats in the 90s. PT/OT ordered. Still waiting for CTA chest to be performed. His labs this morning shows hyponatremia and EUSE[place]. Hold CTA chest - will get NM lung perfusion scan instead. 07/06. NM lung scan is negative for PE. Labs shows hyponatremia and hypokalemia. Hb drop noted. RN reports dark tarry stool. Will hold heparin for now. Stool guaiac ordered. GI eval 07/07: GI recommended EGD and colonoscopy but patient wants to do endoscopy as outpatient. PT recommended home health. Will consult ID for antibiotic recommendation as patient continues to have persistent leukocytosis. Wean off from O2 as tolerated. Will assess for home O2 requirement. Subjective Date of service: 07/07/20 Interval history: Patient seen and examined Patient on 3-4L O2 Denies any chest pain but still c/o SOB on exertion White count remains elevated Objective - Exam Narrative Exam: General appearance: Present: no acute distress, well-nourished - EENT Eyes: Present: PERRL - Neck Neck: Present: supple - Respiratory Respiratory: right: other (coarse breath sounds) - Cardiovascular Heart Sounds: Present: S1 & S2 - Extremities Extremities: No edema - Abdominal General gastrointestinal: soft, non-tender, non-distended, normal bowel sounds - Psychiatric Psychiatric: appropriate mood/affect - Neurologic Neurologic: CNII-XII intact - Constitutional Vitals: Vital Signs - 12hr 07/07/20 07/07/20 07/07/20 04:35 06:12 07:51 Temperature 97.4 F L Pulse Rate 104 H Respiratory 20 Rate Blood Pressure 113/60 O2 Sat by Pulse 91 98 Oximetry 07/07/20 07/07/20 12:00 15:54 Temperature 98.0 F 97.8 F Pulse Rate 97 H 92 H Respiratory 18 18 Rate Blood Pressure 128/66 118/58 O2 Sat by Pulse 99 100 Oximetry - Labs CBC & Chem 7: 07/09/20 00:26 07/09/20 00:26 Labs: Abnormal lab results 07/06/20 07/06/20 07/07/20 Range/Units 16:35 21:36 02:11 WBC 20.1 H (4.5-11.0) K/mm3 RBC 3.04 L (3.65-5.03) M/mm3 Hgb 10.4 L (11.8-15.2) gm/dl Hct 30.8 L D (35.5-45.6) % MCV 101 H (84-94) fl MCH 34 H (28-32) pg Lymph % (Auto) 10.6 L (13.4-35.0) % [place] % (Auto) 11.3 H (0.0-7.3) % [place] # (Auto) 2.3 H (0.0-0.8) K/mm3 Seg Neutrophils % 77.6 H (40.0-70.0) % Seg Neutrophils # 15.6 H (1.8-7.7) K/mm3 Sodium (137-145) mmol/L Potassium (3.6-5.0) mmol/L Chloride (98-107) mmol/L Carbon Dioxide (22-30) mmol/L BUN (9-20) mg/dL POC Glucose 215 H 237 H (70-105) Calcium (8.4-10.2) mg/dL Total Protein (6.3-8.2) g/dL Albumin (3.9-5) g/dL 07/07/20 07/07/20 07/07/20 Range/Units 02:11 12:13 16:05 WBC (4.5-11.0) K/mm3 RBC (3.65-5.03) M/mm3 Hgb (11.8-15.2) gm/dl Hct (35.5-45.6) % MCV (84-94) fl MCH (28-32) pg Lymph % (Auto) (13.4-35.0) % [place] % (Auto) (0.0-7.3) % [place] # (Auto) (0.0-0.8) K/mm3 Seg Neutrophils % (40.0-70.0) % Seg Neutrophils # (1.8-7.7) K/mm3 Sodium 134 L D (137-145) mmol/L Potassium 3.3 L (3.6-5.0) mmol/L Chloride 95.1 L (98-107) mmol/L Carbon Dioxide 21 L (22-30) mmol/L BUN 58 H (9-20) mg/dL POC Glucose 325 H 291 H (70-105) Calcium 8.2 L (8.4-10.2) mg/dL Total Protein 5.0 L (6.3-8.2) g/dL Albumin 3.4 L (3.9-5) g/dL
--- NOTE | 2020-07-07 16:52 | Consultation ---
History of Present Illness - Reason for Consult Consult date: 07/07/20 Leucocytosis Requesting physician: LUZ MARINA MEI - History of Present Illness The patient is a 74-year-old male with hypertension, hypothyroidism, rheumatoid arthritis, schizophrenia initially admitted to inpatient psychiatry was transferred to the medical floor due to shortness of breath and hypoxia. DVT scan was negative for VTE. Chest x-ray did not show any pneumonia. Renal u ltrasound showed bilateral renal stones but no evidence of hydronephrosis. Infectious diseases was consulted due to persistent leukocytosis. Patient complains of pain in his bones, otherwise has no complaints. Not the best of historians. He states there is an ambulance waiting for him to take him home. Review of Systems: Limited due to poor historian. No fever. Complains of pain in his bones which he attributes to rheumatoid arthritis and the changing weather. Medications and Allergies Allergies Allergy/AdvReac Type Severity Reaction Status Date / Time hydroxyzine [From Vistaril] Allergy Unknown Verified 07/04/20 10:39 meperidine Allergy Unknown Verified 07/04/20 10:39 Home Medications Medication Instructions Recorded Confirmed Last Taken Type Aspirin EC 81 mg PO BID 07/01/20 07/07/20 Unknown History Folic Acid 1 mg PO DAILY 07/01/20 07/07/20 Unknown History Insulin Glargine 20 units SQ QHS 07/01/20 07/07/20 Unknown History Levothyroxine Sodium 112 mcg PO DAILY 07/01/20 07/07/20 Unknown History Meloxicam 15 mg PO DAILY 07/01/20 07/07/20 Unknown History Morphine Sulfate 15 mg PO QID 07/01/20 07/07/20 Unknown History Prednisone [predniSONE (Alana) ER 4 mg PO QDAY 07/01/20 07/07/20 Unknown History TAB] Prevacid 30 mg PO DAILY 07/01/20 07/07/20 Unknown History Quetiapine Fumarate 25 mg PO DAILY 07/01/20 07/07/20 Unknown History Sennosides 8.6 mg PO DAILY 07/01/20 07/07/20 Unknown History Xanax TAB 0.5 mg PO TID 07/01/20 07/07/20 Unknown History Active Meds: Active Medications Acetaminophen (Tylenol) 650 mg PO Q4H PRN PRN Reason: Pain MILD(1-3)/Fever >100.5/DUMONT Last Admin: 07/07/20 14:40 Dose: 650 mg Documented by: Dextrose (D50w (25gm) Syringe) 50 ml IV Q30MIN PRN; Protocol PRN Reason: Hypoglycemia Divalproex Sodium (Depakote Dr) 250 mg PO BID [facility] Last Admin: 07/07/20 11:33 Dose: 250 mg Documented by: Piperacillin Sod/Tazobactam Sod (Zosyn/Ns 4.5gm/100ml) 4.5 gm in 100 mls @ 200 mls/hr IV Q8HR [facility]; Protocol Stop: 07/08/20 23:59 Last Admin: 07/07/20 14:07 Dose: 200 mls/hr Documented by: Insulin Glargine (Lantus) 25 units SUB-Q QHS [facility] Insulin Human Lispro (Humalog) 6 unit SUB-Q ACHS [facility]; Protocol Last Admin: 07/07/20 14:09 Dose: 6 unit Documented by: Levothyroxine Sodium (Synthroid) 112 mcg PO DAILY@0600 [facility] Last Admin: 07/07/20 14:23 Dose: 112 mcg Documented by: Olanzapine (Zyprexa) 7.5 mg PO QDAY [facility] Last Admin: 07/07/20 14:48 Dose: 7.5 mg Documented by: Ondansetron HCl (Zofran) 4 mg IV Q8H PRN PRN Reason: Nausea And Vomiting Last Admin: 07/05/20 10:38 Dose: 4 mg Documented by: Pantoprazole Sodium (Protonix) 40 mg IV BID [facility] Last Admin: 07/07/20 11:33 Dose: 40 mg Documented by: Sodium Chloride (Sodium Chloride Flush Syringe 10 Ml) 10 ml IV BID [facility] Last Admin: 07/07/20 11:35 Dose: 10 ml Documented by: Sodium Chloride (Sodium Chloride Flush Syringe 10 Ml) 10 ml IV PRN PRN PRN Reason: LINE FLUSH Last Admin: 07/07/20 06:47 Dose: 10 ml Documented by: Sodium Chloride (Sodium Chloride) 1 gm PO BID [facility] Last Admin: 07/07/20 11:33 Dose: 1 gm Documented by: Trazodone HCl (Desyrel) 50 mg PO QHS [facility] Last Admin: 07/06/20 22:00 Dose: 50 mg Documented by: Physical Examination - Physical Exam Narrative exam: Physical Exam: Constitutional: Alert, cooperative. No acute distress Head, Ears, Nose: Normocephalic, atraumatic. External ears, nose normal Eyes: Conjunctivae/corneas clear. No icterus. No ptosis. Neck: Supple, no meningeal signs Oral: dentition fair, no thrush Cardiovascular: S1, S2 normal. Respiratory: Good air entry, clear to auscultation bilaterally GI: Soft, non-tender; bowel sounds normal. No peritoneal signs : Condom cath + Musculoskeletal: No pedal edema, no cyanosis. Skin: No rash or abscess Hem/Lymphatic: No palpable cervical or supraclavicular nodes. No lymphangitis Psych: Flat affect Neurological: Awake, alert, answering questions but not oriented - Constitutional Vitals: Vital Signs Temp Pulse Resp BP Pulse Ox 97.8 F 92 H 18 118/58 100 07/07/20 15:54 07/07/20 15:54 07/07/20 15:54 07/07/20 15:54 07/07/20 15:54 Temperature -Last 24 Hours Temperature 97.8 F Temperature 98.0 F Temperature 97.4 F Temperature 97.6 F Temperature 97.9 F Results - Labs CBC & Chem 7: 07/07/20 02:11 07/07/20 02:11 Labs: Abnormal lab results 07/06/20 07/07/20 07/07/20 Range/Units 21:36 02:11 02:11 WBC 20.1 H (4.5-11.0) K/mm3 RBC 3.04 L (3.65-5.03) M/mm3 Hgb 10.4 L (11.8-15.2) gm/dl Hct 30.8 L D (35.5-45.6) % MCV 101 H (84-94) fl MCH 34 H (28-32) pg Lymph % (Auto) 10.6 L (13.4-35.0) % [place] % (Auto) 11.3 H (0.0-7.3) % [place] # (Auto) 2.3 H (0.0-0.8) K/mm3 Seg Neutrophils % 77.6 H (40.0-70.0) % Seg Neutrophils # 15.6 H (1.8-7.7) K/mm3 Sodium 134 L D (137-145) mmol/L Potassium 3.3 L (3.6-5.0) mmol/L Chloride 95.1 L (98-107) mmol/L Carbon Dioxide 21 L (22-30) mmol/L BUN 58 H (9-20) mg/dL POC Glucose 237 H (70-105) Calcium 8.2 L (8.4-10.2) mg/dL Total Protein 5.0 L (6.3-8.2) g/dL Albumin 3.4 L (3.9-5) g/dL 07/07/20 07/07/20 Range/Units 12:13 16:05 WBC (4.5-11.0) K/mm3 RBC (3.65-5.03) M/mm3 Hgb (11.8-15.2) gm/dl Hct (35.5-45.6) % MCV (84-94) fl MCH (28-32) pg Lymph % (Auto) (13.4-35.0) % [place] % (Auto) (0.0-7.3) % [place] # (Auto) (0.0-0.8) K/mm3 Seg Neutrophils % (40.0-70.0) % Seg Neutrophils # (1.8-7.7) K/mm3 Sodium (137-145) mmol/L Potassium (3.6-5.0) mmol/L Chloride (98-107) mmol/L Carbon Dioxide (22-30) mmol/L BUN (9-20) mg/dL POC Glucose 325 H 291 H (70-105) Calcium (8.4-10.2) mg/dL Total Protein (6.3-8.2) g/dL Albumin (3.9-5) g/dL - Imaging and Cardiology Chest x-ray: report reviewed, image reviewed (no pneumonia seen) Assessment and Plan Cultures: 07/07/2020 blood culture: In process A/P: 74-year-old male with hypertension, hypothyroidism, rheumatoid arthritis, schizophrenia initially admitted to inpatient psychiatry was transferred to the medical floor due to shortness of breath and hypoxia: #Neutrophilic leukocytosis: Source unclear. No fever. Mild procalcitonin elevation. Not explained by his low-dose steroid use. #Acute hypoxic respiratory failure: No evidence of obvious pneumonia on chest x- ray. #Rheumatoid arthritis: Immunocompromised. On weekly methotrexate and low-dose prednisone. Recs: Switched Zosyn to IV ceftriaxone and PO doxycycline (avoid azithromycin due to possibility of QT prolongation) If leukocytosis persists, consider obtaining CT chest, abdomen and pelvis with IV contrast Jeremi Martinez MD, FACP [facility] ([facility] C: [phone] O: [phone] F: [phone]
[2020-07-07] MEDS ORDERED: cefTRIAXone/NS 2 GM/100 ML 2 GM/100 ML BAG IV SCH (18:00)
[2020-07-07] MEDS: traZODone 50 MG TAB PO SCH (21:48)
[2020-07-07] MEDS: DOXYCYCLINE 100 MG CAP PO SCH (21:48)
--- NOTE | 2020-07-07 22:08 | Consultation ---
History of Present Illness - Reason for Consult Consult date: 07/07/20 Dark stool Requesting physician: DREW CHUN - History of Present Illness Mr Luong is a 74-year-old male with hypertension, hypothyroidism, rheumatoid arthritis, schizophrenia initially admitted to inpatient psychiatry for fighting with his , who was transferred to the medical floor due to shortness of breath and hypoxia. He was noted yesterday to have 2 dark stools, and GI consult was obtained. Pt has a hx of RA, and takes meloxicam at home. He denies a hx of PUD, GERD, hematochezia. He last had a colonoscopy 8 yrs ago. He notes intermittent sharp abd pain and KAYLEN x 4 days. No significant weight loss. Meds reviewed. Past History Past Medical History: diabetes, hypertension, hypothyroidism, other (Rheumatoid arthritis, Schizophrenia) Past Surgical History: No surgical history Social history: . denies: smoking, alcohol abuse Family history: no significant family history Medications and Allergies Allergies Allergy/AdvReac Type Severity Reaction Status Date / Time hydroxyzine [From Vistaril] Allergy Unknown Verified 07/04/20 10:39 meperidine Allergy Unknown Verified 07/04/20 10:39 Home Medications Medication Instructions Recorded Confirmed Last Taken Type Aspirin EC 81 mg PO BID 07/01/20 07/07/20 Unknown History Folic Acid 1 mg PO DAILY 07/01/20 07/07/20 Unknown History Insulin Glargine 20 units SQ QHS 07/01/20 07/07/20 Unknown History Levothyroxine Sodium 112 mcg PO DAILY 07/01/20 07/07/20 Unknown History Meloxicam 15 mg PO DAILY 07/01/20 07/07/20 Unknown History Morphine Sulfate 15 mg PO QID 07/01/20 07/07/20 Unknown History Prednisone [predniSONE (Alana) ER 4 mg PO QDAY 07/01/20 07/07/20 Unknown History TAB] Prevacid 30 mg PO DAILY 07/01/20 07/07/20 Unknown History Quetiapine Fumarate 25 mg PO DAILY 07/01/20 07/07/20 Unknown History Sennosides 8.6 mg PO DAILY 07/01/20 07/07/20 Unknown History Xanax TAB 0.5 mg PO TID 07/01/20 07/07/20 Unknown History Active Meds: Active Medications Acetaminophen (Tylenol) 650 mg PO Q4H PRN PRN Reason: Pain MILD(1-3)/Fever >100.5/DUMONT Last Admin: 07/07/20 14:40 Dose: 650 mg Documented by: Dextrose (D50w (25gm) Syringe) 50 ml IV Q30MIN PRN; Protocol PRN Reason: Hypoglycemia Divalproex Sodium (Depakote Dr) 250 mg PO BID [facility] Last Admin: 07/07/20 21:48 Dose: 250 mg Documented by: Doxycycline Hyclate (Vibramycin) 100 mg PO BID [facility] Last Admin: 07/07/20 21:48 Dose: 100 mg Documented by: Ceftriaxone Sodium (Rocephin/Ns 2 Gm/100 Ml) 2 gm in 100 mls @ 200 mls/hr IV Q24H [facility]; Protocol Insulin Glargine (Lantus) 25 units SUB-Q QHS [facility] Insulin Human Lispro (Humalog) 6 unit SUB-Q ACHS [facility]; Protocol Last Admin: 07/07/20 19:12 Dose: 6 unit Documented by: Levothyroxine Sodium (Synthroid) 112 mcg PO DAILY@0600 [facility] Last Admin: 07/07/20 14:23 Dose: 112 mcg Documented by: Olanzapine (Zyprexa) 7.5 mg PO QDAY [facility] Last Admin: 07/07/20 14:48 Dose: 7.5 mg Documented by: Ondansetron HCl (Zofran) 4 mg IV Q8H PRN PRN Reason: Nausea And Vomiting Last Admin: 07/05/20 10:38 Dose: 4 mg Documented by: Pantoprazole Sodium (Protonix) 40 mg IV BID [facility] Last Admin: 07/07/20 11:33 Dose: 40 mg Documented by: Sodium Chloride (Sodium Chloride Flush Syringe 10 Ml) 10 ml IV BID [facility] Last Admin: 07/07/20 11:35 Dose: 10 ml Documented by: Sodium Chloride (Sodium Chloride Flush Syringe 10 Ml) 10 ml IV PRN PRN PRN Reason: LINE FLUSH Last Admin: 07/07/20 06:47 Dose: 10 ml Documented by: Sodium Chloride (Sodium Chloride) 1 gm PO BID [facility] Last Admin: 07/07/20 21:48 Dose: 1 gm Documented by: Trazodone HCl (Desyrel) 50 mg PO QHS [facility] Last Admin: 07/07/20 21:48 Dose: 50 mg Documented by: Review of Systems All systems: negative (as noted) Exam - Constitutional Vitals: Temp Pulse Resp BP Pulse Ox 98.3 F 97 H 20 121/61 90 07/07/20 19:14 07/07/20 19:14 07/07/20 19:14 07/07/20 19:14 07/07/20 19:14 General appearance: Present: no acute distress - EENT Eyes: Present: PERRL, EOM intact ENT: hearing intact - Respiratory Respiratory effort: normal Respiratory: bilateral: CTA - Cardiovascular Rhythm: regular Heart Sounds: Present: S1 & S2 - Extremities Extremities: No edema - Abdominal General gastrointestinal: Present: soft, non-tender - Rectal Rectal Exam: stool dark (liquid dark greenish-black, Guaiac positive), decreased tone Results - Labs CBC & Chem 7: 07/07/20 02:11 07/07/20 02:11 Labs: Abnormal lab results 07/06/20 07/07/20 07/07/20 Range/Units 21:36 02:11 02:11 WBC 20.1 H (4.5-11.0) K/mm3 RBC 3.04 L (3.65-5.03) M/mm3 Hgb 10.4 L (11.8-15.2) gm/dl Hct 30.8 L D (35.5-45.6) % MCV 101 H (84-94) fl MCH 34 H (28-32) pg Lymph % (Auto) 10.6 L (13.4-35.0) % [place] % (Auto) 11.3 H (0.0-7.3) % [place] # (Auto) 2.3 H (0.0-0.8) K/mm3 Seg Neutrophils % 77.6 H (40.0-70.0) % Seg Neutrophils # 15.6 H (1.8-7.7) K/mm3 Sodium 134 L D (137-145) mmol/L Potassium 3.3 L (3.6-5.0) mmol/L Chloride 95.1 L (98-107) mmol/L Carbon Dioxide 21 L (22-30) mmol/L BUN 58 H (9-20) mg/dL POC Glucose 237 H (70-105) Calcium 8.2 L (8.4-10.2) mg/dL Total Protein 5.0 L (6.3-8.2) g/dL Albumin 3.4 L (3.9-5) g/dL 07/07/20 07/07/20 Range/Units 12:13 16:05 WBC (4.5-11.0) K/mm3 RBC (3.65-5.03) M/mm3 Hgb (11.8-15.2) gm/dl Hct (35.5-45.6) % MCV (84-94) fl MCH (28-32) pg Lymph % (Auto) (13.4-35.0) % [place] % (Auto) (0.0-7.3) % [place] # (Auto) (0.0-0.8) K/mm3 Seg Neutrophils % (40.0-70.0) % Seg Neutrophils # (1.8-7.7) K/mm3 Sodium (137-145) mmol/L Potassium (3.6-5.0) mmol/L Chloride (98-107) mmol/L Carbon Dioxide (22-30) mmol/L BUN (9-20) mg/dL POC Glucose 325 H 291 H (70-105) Calcium (8.4-10.2) mg/dL Total Protein (6.3-8.2) g/dL Albumin (3.9-5) g/dL Assessment and Plan 1. Heme + stool - with dark stool. Could be related to meloxicam induced ulcer or erosions, or mass lesion in colon or stomach. Discussed endoscopic evaluation, but pt declines for now. Hgb dropped down to 10.4. BUN/Cr ratio increased c/w UGI bleed. He is asymptomatic, and not having current francisco bleeding. - empiric PPI - monitor H/H and transfuse as needed - if develops more significant bleed, or pt changes mind, would readdress endoscopic evaluation. Will sign off. Thanks.
[2020-07-07] MEDS: cefTRIAXone/NS 2 GM/100 ML 2 GM/100 ML BAG IV SCH (22:12)
[2020-07-08] MEDS: INSULIN GLARGINE 100 UNITS/ML SUB-Q SCH ×2 (00:31→22:47)
[2020-07-08 00:46] LABS: Hematocrit 27.2 % (35.5-45.6); Hemoglobin 9.4 gm/dl (11.8-15.2); Mean Corpuscular HGB Conc 35 % (32-34); Mean Corpuscular Volume 102 fl (84-94); Platelet Count 178 K/mm3 (140-440); Red Blood Count 2.68 M/mm3 (3.65-5.03); Red Cell Distribution Width 14.1 % (13.2-15.2)
[2020-07-08 00:58] LABS: Basophils # (Auto) 0.1 K/mm3 (0.0-0.1); Basophils % (Auto) 0.4 % (0.0-1.8); Eosinophils # (Auto) 0.1 K/mm3 (0.0-0.4); Eosinophils % (Auto) 0.7 % (0.0-4.3); Lymphocytes # (Auto) 2.4 K/mm3 (1.2-5.4); Lymphocytes % (Auto) 16.2 % (13.4-35.0); Monocytes # (Auto) 1.9 K/mm3 (0.0-0.8); Monocytes % (Auto) 12.6 % (0.0-7.3)
[2020-07-08 01:04] LABS: Alanine Aminotransferase 22 units/L (7-56); Albumin 3.3 g/dL (3.9-5); BUN/Creatinine Ratio 38; Blood Urea Nitrogen 34 mg/dL (9-20); Calcium 8.1 mg/dL (8.4-10.2); Hemolysis Index 2
[2020-07-08] MEDS: LEVOTHYROXINE 112 MCG TAB PO SCH (07:08)
[2020-07-08] MEDS ORDERED: FUROSEMIDE 40 MG/4 ML INJ ONE (07:33)
[2020-07-08] MEDS ORDERED: IPRATROPIUM/ALBUTEROL SULFATE 3 ML AMPUL.NEB IH ONE (07:36)
--- NOTE | 2020-07-08 08:13 | Event Note ---
Date: 07/08/20 Code met at [address] Mejia and I responded. This is an 4-year-old male with schizophrenia, hypertension, diabetes, h ypothyroidism. Per the RN he was more lethargic and awakens to sternal rub, bilateral lungs with crackles on auscultation and mild JVD on the left. His vital signs were stable: BG 167, BP 113/66 (74), HR 101, SPO2 96% on 4 L nasal cannula. Clinical documentation was reviewed and his echocardiogram from 07/04 revealed a EF of 45 to 50% and his chest x-ray showed cardiomegaly. He was given 40 mg of Lasix IVP and a stat chest x-ray was ordered. RN stated he was started on ceftriaxone yesterday. When we left his but vital signs for: BP 118/66 (78), SPO2 96% on 4L nasal cannula, HR 90. His attending was notified and will continue to monitor.
--- NOTE | 2020-07-08 08:19 | XRay Report ---
CHEST - 1 VIEW 0751 hours INDICATION: ACUTE RESP FAILURE/HYPOXIA/POSS aspiration COMPARISON: 07/06/2020 FINDINGS: Support devices: Stable support device positioning. Heart: Stable mild cardiomegaly. Lungs/pleura: Poor inspiration is again demonstrated. Lungs remain clear with minor chronic intersti tial changes at the lung bases. No infiltrate, pleural effusion or pneumothorax is appreciated. Additional findings: None. IMPRESSION: Unchanged exam. Signer Name: Matt Merritt Jr, MD Signed: 07/08/2020 8:14 AM Workstation Name: [id number]
[2020-07-08] MEDS: DIVALPROEX DR 250 MG TAB PO SCH ×2 (10:47→22:46)
[2020-07-08] MEDS: SODIUM CHLORIDE 1 GM TAB PO SCH ×2 (10:47→22:46)
[2020-07-08] MEDS: DOXYCYCLINE 100 MG CAP PO SCH ×2 (10:47→22:46)
[2020-07-08] MEDS: INSULIN LISPRO 100 UNIT/ML VIAL 3 mL SUB-Q SCH ×3 (10:48→17:38)
[2020-07-08] MEDS: PANTOPRAZOLE 40 MG TAB PO SCH ×2 (10:50→17:38)
--- NOTE | 2020-07-08 11:03 | Progress Note ---
Assessment and Plan Cultures: 07/07/2020 blood culture: In process A/P: 74-year-old male with hypertension, hypothyroidism, rheumatoid arthritis, schizophrenia initially admitted to inpatient psychiatry was transferred to the medical floor due to shortness of breath and hypoxia: #Neutrophilic leukocytosis: Source unclear. No fever. Mild procalcitonin elevation. Not explained by his low-dose steroid use. #Acute hypoxic respiratory failure: No evidence of obvious pneumonia on chest x- ray. #Rheumatoid arthritis: Immunocompromised. On weekly methotrexate and low-dose prednisone. #Acute encephalopathy: ?meds related Recs: continue IV ceftriaxone and PO doxycycline (avoid azithromycin due to possibility of QT prolongation) If leukocytosis persists, consider obtaining CT chest, abdomen and pelvis with IV contrast. Hold off for now given improvement in WBC. Jeremi Martinez MD, FACP [facility] C: [phone] O: [phone] F: [phone] Subjective Date of service: 07/08/20 Interval history: No fever. Patient drowsy. Had CODE MET called earlier this morning. Objective - Exam Narrative Exam: Physical Exam: Constitutional: drowsy Head, Ears, Nose: Normocephalic, atraumatic. External ears, nose normal Eyes: Conjunctivae/corneas clear. No icterus. No ptosis. Neck: Supple, no meningeal signs Oral: unable to examine Cardiovascular: S1, S2 normal. Respiratory: few rhonchi, otherwise clear to auscultation bilaterally GI: Soft, non-tender; bowel sounds normal. No peritoneal signs : Condom cath + Musculoskeletal: No pedal edema, no cyanosis. Skin: No rash or abscess Hem/Lymphatic: No palpable cervical or supraclavicular nodes. No lymphangitis Psych: drowsy Neurological: drowsy - Constitutional Vitals: Vital Signs Temp Pulse Resp BP Pulse Ox 98.2 F 98 H 22 101/48 95 07/08/20 03:28 07/08/20 03:28 07/08/20 03:28 07/08/20 08:16 07/08/20 03:28 Temperature -Last 24 Hours Temperature 98.2 F Temperature 97.3 F Temperature 98.3 F Temperature 97.8 F Temperature 98.0 F - Labs CBC & Chem 7: 07/08/20 00:13 07/08/20 00:13 Labs: Abnormal lab results 07/07/20 07/07/20 07/08/20 Range/Units 12:13 16:05 00:13 WBC 15.1 H (4.5-11.0) K/mm3 RBC 2.68 L (3.65-5.03) M/mm3 Hgb 9.4 L (11.8-15.2) gm/dl Hct 27.2 L (35.5-45.6) % MCV 102 H (84-94) fl MCH 35 H (28-32) pg MCHC 35 H (32-34) % [place] % (Auto) 12.6 H (0.0-7.3) % [place] # (Auto) 1.9 H (0.0-0.8) K/mm3 Seg Neutrophils % 70.1 H (40.0-70.0) % Seg Neutrophils # 10.6 H (1.8-7.7) K/mm3 Sodium (137-145) mmol/L Potassium (3.6-5.0) mmol/L BUN (9-20) mg/dL Glucose (75-100) mg/dL POC Glucose 325 H 291 H (70-105) Calcium (8.4-10.2) mg/dL Total Protein (6.3-8.2) g/dL Albumin (3.9-5) g/dL 07/08/20 07/08/20 Range/Units 00:13 07:36 WBC (4.5-11.0) K/mm3 RBC (3.65-5.03) M/mm3 Hgb (11.8-15.2) gm/dl Hct (35.5-45.6) % MCV (84-94) fl MCH (28-32) pg MCHC (32-34) % [place] % (Auto) (0.0-7.3) % [place] # (Auto) (0.0-0.8) K/mm3 Seg Neutrophils % (40.0-70.0) % Seg Neutrophils # (1.8-7.7) K/mm3 Sodium 134 L (137-145) mmol/L Potassium 3.2 L (3.6-5.0) mmol/L BUN 34 H (9-20) mg/dL Glucose 119 H (75-100) mg/dL POC Glucose 167 H (70-105) Calcium 8.1 L (8.4-10.2) mg/dL Total Protein 5.0 L (6.3-8.2) g/dL Albumin 3.3 L (3.9-5) g/dL
[2020-07-08] MEDS: PANTOPRAZOLE 40 MG INJ IV SCH (12:56)
[2020-07-08] MEDS: POTASSIUM CHLORIDE ER 20 MEQ TAB PO SCH (14:37)
--- NOTE | 2020-07-08 15:43 | Progress Note ---
Assessment and Plan --Acute CHF exacerbation started on lasix iv consult cardiology ---Acute respiratory failure with hypoxia Likely from PNA vs CHF exacerbation Continue oxygen supplementation 07/03. Chest xray shows scarring of the left lobe with no clear pneumonia or pulmonary edema NM lung scan -ve for PE. Echo with 45% EF ---Poorly controlled Diabetes mellitus Continue sliding scale insulin, Lantus at night HbA1c 9.5 Endocrinology follow up in the office after discharge ---Leucocytosis Possibly from steroids but procalcitonin is elevated and he is hypoxic Started on empirical antibiotics, off steroid consulted ID for further management ---Hyponatremia Trend, Osmolality serum and urine ordered --Sinus Tachycardia likely from respiratory failure. cont to follow ---Hypothyroidism (acquired) cont synthroid , order TSH and T4 ---Hemoglobin drop/ Upper GI bleed Has dark tarry stool as per RN cont PPI Stool +ve guaiac. GI consulted -patient does not want any endoscopy at this time ---Rheumatoid arthritis Methotrexate weekly, off steroid for now ---HTN (hypertension) Lisinopril 5 mg daily ---Schizophrenia, paranoid type Management as per psych DVT prophylaxis - heparin Full code Brief History 76 year old with a medical history of HTN, Hypothyroidism, RA, Schizophrenia who is being admitted from psych unit with complaints of shortness of breath. He was initially admitted to the psych unit due to his psych condition but he developed shortness of breath and bthen admitted to medicine floor. 07/04. Evaluated patient in the psych unit today and he was on nasal cannula. He had no complaints. Decision was made to admit to the hospital as he has tachycardia and hypoxia. Work up has commenced. His chest xray performed on 07/03 shows no clear infiltrate but his labs shows leukocytosis with a left shif t,elevated ddimer and probnp. Procalcitonin was positive and he was started on antibiotics. CTA chest ordered. 07/05. Patient seen and examined at bedside this morning. He has no complaints. He still on nasal cannula 2 L with sats in the 90s. PT/OT ordered. Still waiting for CTA chest to be performed. His labs this morning shows hyponatremia and [place]. Hold CTA chest - will get NM lung perfusion scan instead. 07/06. NM lung scan is negative for PE. Labs shows hyponatremia and hypokalemia. Hb drop noted. RN reports dark tarry stool. Will hold heparin for now. Stool guaiac ordered. GI eval 07/07: GI recommended EGD and colonoscopy but patient wants to do endoscopy as outpatient. PT recommended home health. Will consult ID for antibiotic recommendation as patient continues to have persistent leukocytosis. Wean off from O2 as tolerated. Will assess for home O2 requirement. 07/08: code med called this am as patient was hypoxic and lethargic. started on iv lasix, consult cardiology Subjective Date of service: 07/08/20 Interval history: Patient seen and examined Patient on 4L O2 code med called this am for respiratory distress and patient was lethargic He is resting on bed now, minimally communicative Objective - Exam Narrative Exam: General appearance: Present: lethargic - EENT Eyes: Present: PERRL - Neck Neck: Present: supple - Respiratory Respiratory: right: other (coarse breath sounds) - Cardiovascular Heart Sounds: Present: S1 & S2 - Extremities Extremities: No edema - Abdominal General gastrointestinal: soft, non-tender, non-distended, normal bowel sounds - Psychiatric Psychiatric: flat mood/affect - Neurologic Neurologic: CNII-XII intact,moves all extremities - Constitutional Vitals: Vital Signs - 12hr 07/08/20 07/08/20 07/08/20 08:16 11:53 12:00 Temperature 98.7 F Pulse Rate 103 H 102 H Pulse Rate [ 102 H Apical] Respiratory 20 18 Rate Blood Pressure 101/48 107/57 O2 Sat by Pulse 100 95 Oximetry - Labs CBC & Chem 7: 07/09/20 00:26 07/09/20 00:26 Labs: Abnormal lab results 07/07/20 07/08/20 07/08/20 Range/Units 16:05 00:13 00:13 WBC 15.1 H (4.5-11.0) K/mm3 RBC 2.68 L (3.65-5.03) M/mm3 Hgb 9.4 L (11.8-15.2) gm/dl Hct 27.2 L (35.5-45.6) % MCV 102 H (84-94) fl MCH 35 H (28-32) pg MCHC 35 H (32-34) % [place] % (Auto) 12.6 H (0.0-7.3) % [place] # (Auto) 1.9 H (0.0-0.8) K/mm3 Seg Neutrophils % 70.1 H (40.0-70.0) % Seg Neutrophils # 10.6 H (1.8-7.7) K/mm3 Sodium 134 L (137-145) mmol/L Potassium 3.2 L (3.6-5.0) mmol/L BUN 34 H (9-20) mg/dL Glucose 119 H (75-100) mg/dL POC Glucose 291 H (70-105) Calcium 8.1 L (8.4-10.2) mg/dL Total Protein 5.0 L (6.3-8.2) g/dL Albumin 3.3 L (3.9-5) g/dL 07/08/20 07/08/20 07/08/20 Range/Units 07:36 08:14 12:47 WBC (4.5-11.0) K/mm3 RBC (3.65-5.03) M/mm3 Hgb (11.8-15.2) gm/dl Hct (35.5-45.6) % MCV (84-94) fl MCH (28-32) pg MCHC (32-34) % [place] % (Auto) (0.0-7.3) % [place] # (Auto) (0.0-0.8) K/mm3 Seg Neutrophils % (40.0-70.0) % Seg Neutrophils # (1.8-7.7) K/mm3 Sodium (137-145) mmol/L Potassium (3.6-5.0) mmol/L BUN (9-20) mg/dL Glucose (75-100) mg/dL POC Glucose 167 H 183 H 199 H (70-105) Calcium (8.4-10.2) mg/dL Total Protein (6.3-8.2) g/dL Albumin (3.9-5) g/dL
[2020-07-08] MEDS: FUROSEMIDE 20 MG/2 ML INJ IV SCH (17:38)
[2020-07-08] MEDS: cefTRIAXone/NS 2 GM/100 ML 2 GM/100 ML BAG IV SCH (22:45)
[2020-07-08] MEDS: traZODone 50 MG TAB PO SCH (22:46)
[2020-07-09] MEDS: INSULIN LISPRO 100 UNIT/ML VIAL 3 mL SUB-Q SCH ×5 (01:24→22:21)
[2020-07-09 02:26] LABS: Basophils % (Auto) 0.3 % (0.0-1.8); Eosinophils # (Auto) 0.1 K/mm3 (0.0-0.4); Eosinophils % (Auto) 0.5 % (0.0-4.3); Hematocrit 30.2 % (35.5-45.6); Hemoglobin 10.5 gm/dl (11.8-15.2); Lymphocytes # (Auto) 2.6 K/mm3 (1.2-5.4); Lymphocytes % (Auto) 17.8 % (13.4-35.0); Mean Corpuscular HGB Conc 35 % (32-34); Mean Corpuscular Volume 103 fl (84-94); Monocytes # (Auto) 2.2 K/mm3 (0.0-0.8); Monocytes % (Auto) 15.1 % (0.0-7.3); Platelet Count 231 K/mm3 (140-440); Red Blood Count 2.94 M/mm3 (3.65-5.03); Red Cell Distribution Width 14.8 % (13.2-15.2)
[2020-07-09 02:49] LABS: Alanine Aminotransferase 22 units/L (7-56); Albumin 3.6 g/dL (3.9-5); BUN/Creatinine Ratio 30; Blood Urea Nitrogen 30 mg/dL (9-20); Calcium 8.9 mg/dL (8.4-10.2); Hemolysis Index 5
[2020-07-09] MEDS ORDERED: POTASSIUM CHLORIDE ER 20 MEQ TAB PO ONE (03:52)
[2020-07-09] MEDS: LEVOTHYROXINE 112 MCG TAB PO SCH ×2 (04:01→06:56)
[2020-07-09] MEDS: FUROSEMIDE 20 MG/2 ML INJ IV SCH ×2 (04:01→06:56)
[2020-07-09] MEDS: PANTOPRAZOLE 40 MG TAB PO SCH ×2 (09:07→16:34)
[2020-07-09] MEDS: DIVALPROEX DR 250 MG TAB PO SCH ×2 (09:07→22:20)
[2020-07-09] MEDS: DOXYCYCLINE 100 MG CAP PO SCH ×2 (09:07→22:20)
[2020-07-09] MEDS: SODIUM CHLORIDE 1 GM TAB PO SCH ×2 (09:08→22:20)
[2020-07-09] MEDS: POTASSIUM CHLORIDE ER 20 MEQ TAB PO SCH (09:08)
--- NOTE | 2020-07-09 10:58 | Consultation ---
History of Present Illness Consult date: 07/09/20 Consult reason: congestive heart failure History of present illness: Patient is a 74-year old M who was admitted for inpatient psychiatric evalua tion, later transferred to the telemetry floor for shortness of breath and hypoxia. Lower extremity doppler scan was negative for DVT and a ventilation perfusion scan showed no evidence of PE. Chest x-ray showed no evidence of interstitial edema. Further evaluation with an echocardiogram reveals an left ventricular ejection fraction 45-50%. A cardiac consultation has been requested for "CHF". Today, patient is resting in bed and appears comfortable. He denies unusual shortness of breath. Denies chest pain and palpitations. There is no lower extremity edema. An ECG done shows sinus rhythm, LVH with repolarization abnormalities. Past History Past Medical History: diabetes, hypertension, hypothyroidism, other (Rheumatoid arthritis, Schizophrenia) Social history: . denies: smoking, alcohol abuse Family history: no significant family history Medications and Allergies Allergies Allergy/AdvReac Type Severity Reaction Status Date / Time hydroxyzine [From Vistaril] Allergy Unknown Verified 07/04/20 10:39 meperidine Allergy Unknown Verified 07/04/20 10:39 Home Medications Medication Instructions Recorded Confirmed Last Taken Type Aspirin EC 81 mg PO BID 07/01/20 07/07/20 Unknown History Folic Acid 1 mg PO DAILY 07/01/20 07/07/20 Unknown History Insulin Glargine 20 units SQ QHS 07/01/20 07/07/20 Unknown History Levothyroxine Sodium 112 mcg PO DAILY 07/01/20 07/07/20 Unknown History Meloxicam 15 mg PO DAILY 07/01/20 07/07/20 Unknown History Morphine Sulfate 15 mg PO QID 07/01/20 07/07/20 Unknown History Prednisone [predniSONE (Alana) ER 4 mg PO QDAY 07/01/20 07/07/20 Unknown History TAB] Prevacid 30 mg PO DAILY 07/01/20 07/07/20 Unknown History Quetiapine Fumarate 25 mg PO DAILY 07/01/20 07/07/20 Unknown History Sennosides 8.6 mg PO DAILY 07/01/20 07/07/20 Unknown History Xanax TAB 0.5 mg PO TID 07/01/20 07/07/20 Unknown History Active Meds: Active Medications Acetaminophen (Tylenol) 650 mg PO Q4H PRN PRN Reason: Pain MILD(1-3)/Fever >100.5/DUMONT Last Admin: 07/07/20 14:40 Dose: 650 mg Documented by: Dextrose (D50w (25gm) Syringe) 50 ml IV Q30MIN PRN; Protocol PRN Reason: Hypoglycemia Divalproex Sodium (Depakote Dr) 250 mg PO BID [facility] Last Admin: 07/09/20 09:07 Dose: 250 mg Documented by: Doxycycline Hyclate (Vibramycin) 100 mg PO BID [facility] Last Admin: 07/09/20 09:07 Dose: 100 mg Documented by: Furosemide (Lasix) 20 mg PO 0600,1800 [facility] Ceftriaxone Sodium (Rocephin/Ns 2 Gm/100 Ml) 2 gm in 100 mls @ 200 mls/hr IV Q24H [facility]; Protocol Last Admin: 07/08/20 22:45 Dose: 200 mls/hr Documented by: Insulin Glargine (Lantus) 25 units SUB-Q QHS [facility] Last Admin: 07/08/20 22:47 Dose: 25 units Documented by: Insulin Human Lispro (Humalog) 6 unit SUB-Q ACHS [facility]; Protocol Last Admin: 07/09/20 09:08 Dose: 6 unit Documented by: Levothyroxine Sodium (Synthroid) 112 mcg PO DAILY@0600 [facility] Last Admin: 07/09/20 06:56 Dose: Not Given Documented by: Olanzapine (Zyprexa) 7.5 mg PO QDAY [facility] Last Admin: 07/09/20 09:08 Dose: 7.5 mg Documented by: Ondansetron HCl (Zofran) 4 mg IV Q8H PRN PRN Reason: Nausea And Vomiting Last Admin: 07/05/20 10:38 Dose: 4 mg Documented by: Pantoprazole Sodium (Protonix) 40 mg PO BIDAC [facility] Last Admin: 07/09/20 09:07 Dose: 40 mg Documented by: Potassium Chloride (K-Dur) 40 meq PO QDAY [facility] Last Admin: 07/09/20 09:08 Dose: 40 meq Documented by: Sodium Chloride (Sodium Chloride Flush Syringe 10 Ml) 10 ml IV BID [facility] Last Admin: 07/09/20 09:08 Dose: 10 ml Documented by: Sodium Chloride (Sodium Chloride Flush Syringe 10 Ml) 10 ml IV PRN PRN PRN Reason: LINE FLUSH Last Admin: 07/09/20 04:01 Dose: 10 ml Documented by: Sodium Chloride (Sodium Chloride) 1 gm PO BID [facility] Last Admin: 07/09/20 09:08 Dose: 1 gm Documented by: Trazodone HCl (Desyrel) 50 mg PO QHS [facility] Last Admin: 07/08/20 22:46 Dose: 50 mg Documented by: Physical Examination Vital Signs Pulse Resp Pulse Ox 105 H 19 98 07/04/20 17:29 07/04/20 17:29 07/04/20 17:29 General appearance: no acute distress HEENT: Positive: PERRL Neck: Positive: trachea midline Cardiac: Positive: Reg Rate and Rhythm Lungs: Positive: Decreased Breath Sounds Neuro: Positive: Grossly Intact Extremities: Absent: edema Results 07/09/20 00:26 07/09/20 00:26 Cardiac Enzymes 07/09/20 Range/Units 00:26 AST 23 (5-40) units/L CBC 07/09/20 Range/Units 00:26 WBC 14.5 H (4.5-11.0) K/mm3 RBC 2.94 L (3.65-5.03) M/mm3 Hgb 10.5 L (11.8-15.2) gm/dl Hct 30.2 L (35.5-45.6) % Plt Count 231 (140-440) K/mm3 Lymph # (Auto) 2.6 (1.2-5.4) K/mm3 [place] # (Auto) 2.2 H (0.0-0.8) K/mm3 Eos # (Auto) 0.1 (0.0-0.4) K/mm3 Baso # (Auto) 0.0 (0.0-0.1) K/mm3 Comprehensive Metabolic Panel 07/09/20 Range/Units 00:26 Sodium 137 (137-145) mmol/L Potassium 3.1 L (3.6-5.0) mmol/L Chloride 93.0 L (98-107) mmol/L Carbon Dioxide 26 (22-30) mmol/L BUN 30 H (9-20) mg/dL Creatinine 1.0 (0.8-1.3) mg/dL Glucose 131 H (75-100) mg/dL Calcium 8.9 (8.4-10.2) mg/dL AST 23 (5-40) units/L ALT 22 (7-56) units/L Alkaline Phosphatase 63 (35-129) units/L Total Protein 5.6 L (6.3-8.2) g/dL Albumin 3.6 L (3.9-5) g/dL Assessment and Plan - Patient Problems (1) Acute respiratory failure with hypoxia Current Visit: No Status: Acute Plan to address problem: There is no evidence of CHF. An echocardiogram reveals an left ventricular ejection fraction 45-50%. No further workup indicated. Will sign off.
--- NOTE | 2020-07-09 12:35 | Progress Note ---
Assessment and Plan Cultures: 07/07/2020 blood culture: no growth A/P: 74-year-old male with hypertension, hypothyroidism, rheumatoid arthritis, schizophrenia initially admitted to inpatient psychiatry was transferred to the medical floor due to shortness of breath and hypoxia: #Neutrophilic leukocytosis: Source unclear. No fever. Mild procalcitonin elevation. Not explained by his low-dose steroid use. #Acute hypoxic respiratory failure: No evidence of obvious pneumonia on chest x- ray. #Rheumatoid arthritis: Immunocompromised. On weekly methotrexate and low-dose prednisone. #Acute encephalopathy: ?meds related Recs: continue IV ceftriaxone and PO doxycycline (avoid azithromycin due to possibility of QT prolongation), D3 ordered CT chest, abdomen and pelvis with IV contrast to evaluate cause of leucocytosis d/w Dr. Raza. Jeremi Martinez MD, FACP [facility] C: [phone] O: [phone] F: [phone] Subjective Date of service: 07/09/20 Interval history: No fever. More awake today. Denies any complaints, wants to go home. Objective - Exam Narrative Exam: Physical Exam: Constitutional: awake, alert, no distress Head, Ears, Nose: Normocephalic, atraumatic. External ears, nose normal Eyes: Conjunctivae/corneas clear. No icterus. No ptosis. Neck: Supple, no meningeal signs Cardiovascular: S1, S2 normal. Respiratory: few rhonchi, otherwise clear to auscultation bilaterally GI: Soft, non-tender; bowel sounds normal. No peritoneal signs : Condom cath + Musculoskeletal: No pedal edema, no cyanosis. Skin: No rash or abscess Hem/Lymphatic: No palpable cervical or supraclavicular nodes. No lymphangitis Psych: no agitation, flat affect Neurological: awake, alert, answering questions. - Constitutional Vitals: Vital Signs Temp Pulse Resp BP Pulse Ox 97.6 F 98 H 18 99/39 97 07/09/20 04:50 07/09/20 08:00 07/09/20 08:00 07/09/20 04:50 07/09/20 10:00 Temperature -Last 24 Hours Temperature 97.6 F Temperature 98.3 F Temperature 99.4 F Temperature 98.1 F - Labs CBC & Chem 7: 07/09/20 00:26 10/01/20 00:26 Labs: Abnormal lab results 07/08/20 07/08/20 07/08/20 Range/Units 12:47 18:03 22:06 WBC (4.5-11.0) K/mm3 RBC (3.65-5.03) M/mm3 Hgb (11.8-15.2) gm/dl Hct (35.5-45.6) % MCV (84-94) fl MCH (28-32) pg MCHC (32-34) % [place] % (Auto) (0.0-7.3) % [place] # (Auto) (0.0-0.8) K/mm3 Seg Neutrophils # (1.8-7.7) K/mm3 Potassium (3.6-5.0) mmol/L Chloride (98-107) mmol/L BUN (9-20) mg/dL Glucose (75-100) mg/dL POC Glucose 199 H 213 H 218 H (70-105) Total Protein (6.3-8.2) g/dL Albumin (3.9-5) g/dL 07/09/20 07/09/20 07/09/20 Range/Units 00:26 00:26 08:06 WBC 14.5 H (4.5-11.0) K/mm3 RBC 2.94 L (3.65-5.03) M/mm3 Hgb 10.5 L (11.8-15.2) gm/dl Hct 30.2 L (35.5-45.6) % MCV 103 H (84-94) fl MCH 36 H (28-32) pg MCHC 35 H (32-34) % [place] % (Auto) 15.1 H (0.0-7.3) % [place] # (Auto) 2.2 H (0.0-0.8) K/mm3 Seg Neutrophils # 9.6 H (1.8-7.7) K/mm3 Potassium 3.1 L (3.6-5.0) mmol/L Chloride 93.0 L (98-107) mmol/L BUN 30 H (9-20) mg/dL Glucose 131 H (75-100) mg/dL POC Glucose 289 H (70-105) Total Protein 5.6 L (6.3-8.2) g/dL Albumin 3.6 L (3.9-5) g/dL
[2020-07-09] MEDS: metroNIDAZOLE 500 MG TAB PO SCH ×3 (14:33→22:20)
--- NOTE | 2020-07-09 16:36 | Progress Note ---
Assessment and Plan --Acute CHF exacerbation started on lasix iv consulted cardiology monitor ins/ox, daily wt ---Acute respiratory failure with hypoxia Likely from PNA vs CHF exacerbation Continue oxygen supplementation 07/03. Chest xray shows scarring of the left lobe with no clear pneumonia or pulmonary edema NM lung scan -ve for PE. Echo with 45% EF ---Poorly controlled Diabetes mellitus Continue sliding scale insulin, Lantus at night HbA1c 9.5 Endocrinology follow up in the office after discharge ---Leucocytosis Possibly from steroids but procalcitonin is elevated and he is hypoxic Started on empirical antibiotics, off steroid consulted ID for further management ordered CT chest, abdomen and pelvis with IV contrast to evaluate cause of leucocytosis - but patient refused ---Hyponatremia Trend, Osmolality serum and urine ordered --Sinus Tachycardia likely from respiratory failure. cont to follow ---Hypothyroidism (acquired) cont synthroid , normal TSH and T4 ---Hemoglobin drop/ Upper GI bleed Has dark tarry stool as per RN cont PPI Stool +ve guaiac. GI consulted -patient does not want any endoscopy at this time ---Rheumatoid arthritis Methotrexate weekly, off steroid for now ---HTN (hypertension) Lisinopril 5 mg daily ---Schizophrenia, paranoid type Management as per psych DVT prophylaxis - heparin Full code Brief History 76 year old with a medical history of HTN, Hypothyroidism, RA, Schizophrenia who is being admitted from psych unit with complaints of shortness of breath. He was initially admitted to the psych unit due to his psych condition but he developed shortness of breath and bthen admitted to medicine floor. 07/04. Evaluated patient in the psych unit today and he was on nasal cannula. He had no complaints. Decision was made to admit to the hospital as he has tachycardia and hypoxia. Work up has commenced. His chest xray performed on 07/03 shows no clear infiltrate but his labs shows leukocytosis with a left shift,elevated ddimer and probnp. Procalcitonin was positive and he was started on antibiotics. CTA chest ordered. 07/05. Patient seen and examined at bedside this morning. He has no complaints. He still on nasal cannula 2 L with sats in the 90s. PT/OT ordered. Still waiting for CTA chest to be performed. His labs this morning shows hyponatremia and [place]. Hold CTA chest - will get NM lung perfusion scan instead. 07/06. NM lung scan is negative for PE. Labs shows hyponatremia and hypokalemia. Hb drop noted. RN reports dark tarry stool. Will hold heparin for now. Stool guaiac ordered. GI eval 07/07: GI recommended EGD and colonoscopy but patient wants to do endoscopy as outpatient. PT recommended home health. Will consult ID for antibiotic recomme ndation as patient continues to have persistent leukocytosis. Wean off from O2 as tolerated. Will assess for home O2 requirement. 07/08: code med called this am as patient was hypoxic and lethargic. started on iv lasix, consult cardiology 07/09: patient more clinically stable, white count tending down. refusing CT scan. discussed with and she stated that she is considering for placement for the patient Subjective Date of service: 07/09/20 Interval history: Patient seen and examined Patient on RA He is resting on bed now, communicative Objective - Exam Narrative Exam: General appearance: Present: lethargic - EENT Eyes: Present: PERRL - Neck Neck: Present: supple - Respiratory Respiratory: right: other (coarse breath sounds) - Cardiovascular Heart Sounds: Present: S1 & S2 - Extremities Extremities: No edema - Abdominal General gastrointestinal: soft, non-tender, non-distended, normal bowel sounds - Psychiatric Psychiatric: flat mood/affect - Neurologic Neurologic: CNII-XII intact,moves all extremities - Constitutional Vitals: Vital Signs - 12hr 07/09/20 07/09/20 07/09/20 04:50 08:00 10:00 Temperature 97.6 F Pulse Rate 102 H Pulse Rate [ 98 H Apical] Respiratory 20 18 Rate Blood Pressure 99/39 O2 Sat by Pulse 97 95 97 Oximetry 07/09/20 10:05 Temperature Pulse Rate Pulse Rate [ Apical] Respiratory Rate Blood Pressure O2 Sat by Pulse 94 Oximetry - Labs CBC & Chem 7: 07/09/20 00:26 07/09/20 00:26 Labs: Abnormal lab results 07/08/20 07/08/20 07/09/20 Range/Units 18:03 22:06 00:26 WBC 14.5 H (4.5-11.0) K/mm3 RBC 2.94 L (3.65-5.03) M/mm3 Hgb 10.5 L (11.8-15.2) gm/dl Hct 30.2 L (35.5-45.6) % MCV 103 H (84-94) fl MCH 36 H (28-32) pg MCHC 35 H (32-34) % [place] % (Auto) 15.1 H (0.0-7.3) % [place] # (Auto) 2.2 H (0.0-0.8) K/mm3 Seg Neutrophils # 9.6 H (1.8-7.7) K/mm3 Potassium (3.6-5.0) mmol/L Chloride (98-107) mmol/L BUN (9-20) mg/dL Glucose (75-100) mg/dL POC Glucose 213 H 218 H (70-105) Total Protein (6.3-8.2) g/dL Albumin (3.9-5) g/dL 07/09/20 07/09/20 Range/Units 00:26 08:06 WBC (4.5-11.0) K/mm3 RBC (3.65-5.03) M/mm3 Hgb (11.8-15.2) gm/dl Hct (35.5-45.6) % MCV (84-94) fl MCH (28-32) pg MCHC (32-34) % [place] % (Auto) (0.0-7.3) % [place] # (Auto) (0.0-0.8) K/mm3 Seg Neutrophils # (1.8-7.7) K/mm3 Potassium 3.1 L (3.6-5.0) mmol/L Chloride 93.0 L (98-107) mmol/L BUN 30 H (9-20) mg/dL Glucose 131 H (75-100) mg/dL POC Glucose 289 H (70-105) Total Protein 5.6 L (6.3-8.2) g/dL Albumin 3.6 L (3.9-5) g/dL
[2020-07-09] MEDS: FUROSEMIDE 20 MG TAB PO SCH (17:19)
[2020-07-09] MEDS: cefTRIAXone/NS 2 GM/100 ML 2 GM/100 ML BAG IV SCH (22:19)
[2020-07-09] MEDS: INSULIN GLARGINE 100 UNITS/ML SUB-Q SCH (22:20)
[2020-07-09] MEDS: traZODone 50 MG TAB PO SCH (22:20)
[2020-07-10] MEDS: FUROSEMIDE 20 MG TAB PO SCH ×2 (07:14→17:08)
[2020-07-10] MEDS: LEVOTHYROXINE 112 MCG TAB PO SCH (07:14)
[2020-07-10] MEDS: metroNIDAZOLE 500 MG TAB PO SCH ×4 (07:14→23:36)
[2020-07-10] MEDS: INSULIN LISPRO 100 UNIT/ML VIAL 3 mL SUB-Q SCH ×3 (07:53→17:07)
[2020-07-10] MEDS: PANTOPRAZOLE 40 MG TAB PO SCH ×2 (09:51→17:08)
[2020-07-10] MEDS: POTASSIUM CHLORIDE ER 20 MEQ TAB PO SCH (09:51)
[2020-07-10] MEDS: DIVALPROEX DR 250 MG TAB PO SCH ×3 (09:51→23:37)
[2020-07-10] MEDS: DOXYCYCLINE 100 MG CAP PO SCH ×3 (09:52→23:37)
--- NOTE | 2020-07-10 12:55 | Consultation ---
History of Present Illness - Reason for Consult Consult date: 07/10/20 Reason for consult: MHE Requesting physician: DREW CHUN - Chief Complaint Chief complaint: Shortness of breath - History of Present Psychiatric Illness HPI Patient is a 74 year old male known to me from prior encounter with consult for mental health evaluation based on refusal for blood drawn and imaging. Patient appears incoherent and disoriented in a pattern consistent with dementia, patient says he remembers me from 6 years ago and called me a name in [place]. Patient says he does not want them to stick him no more and when he feels ready he will let them know. Patient is tangential in response, smiles occasionally, no aggression or combatively noted. PAST PSYCHIATRIC HISTORY: Diagnoses: Unknown diagnosis Suicide attempts or Self-harm behavior: None reported Prior psychiatric hospitalizations: none reported Substance Abuse history: None reported Previous psychiatric medications tried: Yes, meds unknown Outpatient treatment: Yes PAST MEDICAL HISTORY: DM, HTN and RA Family Psychiatric History: None reported or documented SOCIAL HISTORY Marital Status: Living Arrangements: with Employment Status: retired Access to guns/weapons: Yes Education: College History of Abuse: none reported Legal History: none reported REVIEW OF SYSTEMS ROS cannot be reliably obtained from the patient due to his confusion MENTAL STATUS EXAMINATION General Appearance and Behavior: Age appropriate, good hygiene, wearing appropriate clothes, lying in bed, good eye contact, cooperative polite with questioning. Cooperation: Participating/engaged Psychomotor Behavior: unremarkable and within normal limits Mood: Good Affect and affective range: congruent with mood Thought Process: Illogical, Thought Content: illogical Speech: Normal volume, Regular rate and rhythm Intellectual Functioning: Average Suicidal Ideation: Denies SI Homicidal Ideation: Denies HI Impulse Control: Impaired Insight and Judgment: Limited insight and judgment Memory:Prospective memory impaired Attention: Normal Orientation: Alert, disoriented, Assessment and Plan - Psychiatric problem (1) Schizophrenia, paranoid type Current Visit: Yes Status: Acute ' Treatment Plan Continue current meds MEDICATIONS: Risks, benefits and alternatives of medications discussed with the patient, questions answered and consent obtained from patient. PSYCHOTHERAPY: Supportive psychotherapy provided MEDICAL: Per primary team DELIRIUM PRECAUTIONS: Please re-orient patient frequently, keep lights on during the day, and minimize benzodiazepines and opiates as these medications could worsen patient's confusion. REFINERY OPERATOR: DISPOSITION: Do Not Recommend acute inpatient psychiatric hospitalization at this time LEGAL STATUS: Voluntary FOLLOW-UP: Will sign off Thank you for the consult. Please contact with any questions and/or concerns. Medications and Allergies Allergies Allergy/AdvReac Type Severity Reaction Status Date / Time hydroxyzine [From Vistaril] Allergy Unknown Verified 07/04/20 10:39 meperidine Allergy Unknown Verified 07/04/20 10:39 Home Medications Medication Instructions Recorded Confirmed Last Taken Type Aspirin EC 81 mg PO BID 07/01/20 07/07/20 Unknown History Folic Acid 1 mg PO DAILY 07/01/20 07/07/20 Unknown History Insulin Glargine 20 units SQ QHS 07/01/20 07/07/20 Unknown History Levothyroxine Sodium 112 mcg PO DAILY 07/01/20 07/07/20 Unknown History Meloxicam 15 mg PO DAILY 07/01/20 07/07/20 Unknown History Morphine Sulfate 15 mg PO QID 07/01/20 07/07/20 Unknown History Prednisone [predniSONE (Alana) ER 4 mg PO QDAY 07/01/20 07/07/20 Unknown History TAB] Prevacid 30 mg PO DAILY 07/01/20 07/07/20 Unknown History Quetiapine Fumarate 25 mg PO DAILY 07/01/20 07/07/20 Unknown History Sennosides 8.6 mg PO DAILY 07/01/20 07/07/20 Unknown History Xanax TAB 0.5 mg PO TID 07/01/20 07/07/20 Unknown History Active Meds: Active Medications Acetaminophen (Tylenol) 650 mg PO Q4H PRN PRN Reason: Pain MILD(1-3)/Fever >100.5/DUMONT Last Admin: 07/07/20 14:40 Dose: 650 mg Documented by: Dextrose (D50w (25gm) Syringe) 50 ml IV Q30MIN PRN; Protocol PRN Reason: Hypoglycemia Divalproex Sodium (Depakote Dr) 250 mg PO BID [facility] Last Admin: 07/10/20 09:51 Dose: Not Given Documented by: Doxycycline Hyclate (Vibramycin) 100 mg PO BID [facility] Last Admin: 07/10/20 09:52 Dose: Not Given Documented by: Furosemide (Lasix) 20 mg PO 0600,1800 [facility] Last Admin: 07/10/20 07:14 Dose: Not Given Documented by: Ceftriaxone Sodium (Rocephin/Ns 2 Gm/100 Ml) 2 gm in 100 mls @ 200 mls/hr IV Q24H [facility]; Protocol Last Admin: 07/09/20 22:19 Dose: 200 mls/hr Documented by: Insulin Glargine (Lantus) 30 units SUB-Q QHS [facility] Insulin Human Lispro (Humalog) 10 unit SUB-Q [facility]; Protocol Last Admin: 07/10/20 07:53 Dose: Not Given Documented by: Levothyroxine Sodium (Synthroid) 112 mcg PO DAILY@0600 [facility] Last Admin: 07/10/20 07:14 Dose: Not Given Documented by: Metronidazole (Flagyl) 500 mg PO Q8HR [facility]; Protocol Last Admin: 07/10/20 07:14 Dose: Not Given Documented by: Olanzapine (Zyprexa) 7.5 mg PO QDAY [facility] Last Admin: 07/10/20 09:52 Dose: Not Given Documented by: Ondansetron HCl (Zofran) 4 mg IV Q8H PRN PRN Reason: Nausea And Vomiting Last Admin: 07/05/20 10:38 Dose: 4 mg Documented by: Pantoprazole Sodium (Protonix) 40 mg PO BIDAC [facility] Last Admin: 07/10/20 09:51 Dose: Not Given Documented by: Potassium Chloride (K-Dur) 40 meq PO QDAY [facility] Last Admin: 07/10/20 09:51 Dose: Not Given Documented by: Sodium Chloride (Sodium Chloride Flush Syringe 10 Ml) 10 ml IV BID [facility] Last Admin: 07/09/20 22:21 Dose: 10 ml Documented by: Sodium Chloride (Sodium Chloride Flush Syringe 10 Ml) 10 ml IV PRN PRN PRN Reason: LINE FLUSH Last Admin: 07/09/20 04:01 Dose: 10 ml Documented by: Sodium Chloride (Sodium Chloride) 1 gm PO BID [facility] Last Admin: 07/09/20 22:20 Dose: 1 gm Documented by: Trazodone HCl (Desyrel) 50 mg PO QHS [facility] Last Admin: 07/09/20 22:20 Dose: 50 mg Documented by: Mental Status Exam - Vital signs Last Vital Signs Temp 98.6 F 07/10/20 11:32 Pulse 95 H 07/10/20 11:32 Resp 16 07/10/20 11:32 BP 112/59 07/10/20 11:32 Pulse Ox 96 07/10/20 11:32 Results Result Diagrams: 07/09/20 00:26 07/09/20 00:26 Abnormal lab results 07/09/20 Range/Units 16:09 POC Glucose 345 H (70-105) All other labs normal.
--- NOTE | 2020-07-10 13:14 | Progress Note ---
Assessment and Plan Cultures: 07/07/2020 blood culture: no growth A/P: 74-year-old male with hypertension, hypothyroidism, rheumatoid arthritis, schizophrenia initially admitted to inpatient psychiatry was transferred to the medical floor due to shortness of breath and hypoxia: #Neutrophilic leukocytosis: Source unclear. No fever. Mild procalcitonin elevation. Not explained by his low-dose steroid use. Continues to improve. #Acute hypoxic respiratory failure: No evidence of obvious pneumonia on chest x- ray but was hypoxic. Unable to get CT because patient refused. #Rheumatoid arthritis: Immunocompromised. On weekly methotrexate and low-dose prednisone. #Acute encephalopathy: ?meds related Recs: continue IV ceftriaxone and PO doxycycline (avoid azithromycin due to possibility of QT prolongation), D4 of [address] chest, abdomen and pelvis with IV contrast to evaluate cause of leucocytosis. Since it is improving, we can hold off. Jeremi Martinez MD, FACP [facility] O: [phone] F: [phone] Subjective Date of service: 07/10/20 Interval history: Feels well. No fever. Declined CT scan. Says he doesn't want any tests done. Objective - Exam Narrative Exam: Physical Exam: Constitutional: awake, alert, no distress Head, Ears, Nose: Normocephalic, atraumatic. External ears, nose normal Eyes: Conjunctivae/corneas clear. No icterus. No ptosis. Neck: Supple, no meningeal signs Cardiovascular: S1, S2 normal. Respiratory: few rhonchi, otherwise clear to auscultation bilaterally GI: Soft, non-tender; bowel sounds normal. No peritoneal signs Musculoskeletal: No pedal edema, no cyanosis. Skin: No rash or abscess Hem/Lymphatic: No palpable cervical or supraclavicular nodes. No lymphangitis Psych: no agitation, flat affect Neurological: awake, alert, answering questions. - Constitutional Vitals: Vital Signs Temp Pulse Resp BP Pulse Ox 98.6 F 95 H 16 112/59 96 07/10/20 11:32 07/10/20 11:32 07/10/20 11:32 07/10/20 11:32 07/10/20 11:32 Temperature -Last 24 Hours Temperature 98.6 F Temperature 98.4 F Temperature 98.3 F Temperature 98.1 F Temperature 82.0 F - Labs CBC & Chem 7: 07/09/20 00:26 07/09/20 00:26 Labs: Abnormal lab results 07/09/20 Range/Units 16:09 POC Glucose 345 H (70-105)
--- NOTE | 2020-07-10 15:03 | Progress Note ---
Assessment and Plan --Acute CHF exacerbation started on lasix iv consulted cardiology monitor ins/ox, daily wt ---Acute respiratory failure with hypoxia Likely from PNA vs CHF exacerbation Continue oxygen supplementation 07/03. Chest xray shows scarring of the left lobe with no clear pneumonia or pulmonary edema NM lung scan -ve for PE. Echo with 45% EF ---Poorly controlled Diabetes mellitus Continue sliding scale insulin, Lantus at night HbA1c 9.5 Endocrinology follow up in the office after discharge ---Leucocytosis Possibly from steroids but procalcitonin is elevated and he is hypoxic Started on empirical antibiotics, off steroid consulted ID for further management ordered CT chest, abdomen and pelvis with IV contrast to evaluate cause of leucocytosis - but patient refused ---Hyponatremia Trend, Osmolality serum and urine ordered --Sinus Tachycardia likely from respiratory failure. cont to follow ---Hypothyroidism (acquired) cont synthroid , normal TSH and T4 ---Hemoglobin drop/ Upper GI bleed Has dark tarry stool as per RN cont PPI Stool +ve guaiac. GI consulted -patient does not want any endoscopy at this time ---Rheumatoid arthritis Methotrexate weekly, off steroid for now ---HTN (hypertension) Lisinopril 5 mg daily ---Schizophrenia, paranoid type Management as per psych DVT prophylaxis - heparin Full code Brief History 76 year old with a medical history of HTN, Hypothyroidism, RA, Schizophrenia who is being admitted from psych unit with complaints of shortness of breath. He was initially admitted to the psych unit due to his psych condition but he developed shortness of breath and bthen admitted to medicine floor. 07/04. Evaluated patient in the psych unit today and he was on nasal cannula. He had no complaints. Decision was made to admit to the hospital as he has tachycardia and hypoxia. Work up has commenced. His chest xray performed on 07/03 shows no clear infiltrate but his labs shows leukocytosis with a left shift,elevated ddimer and probnp. Procalcitonin was positive and he was started on antibiotics. CTA chest ordered. 07/05. Patient seen and examined at bedside this morning. He has no complaints. He still on nasal cannula 2 L with sats in the 90s. PT/OT ordered. Still waiting for CTA chest to be performed. His labs this morning shows hyponatremia and EUSEBIA. Hold CTA chest - will get NM lung perfusion scan instead. 07/06. NM lung scan is negative for PE. Labs shows hyponatremia and hypokalemia. Hb drop noted. RN reports dark tarry stool. Will hold heparin for now. Stool guaiac ordered. GI eval 07/07: GI recommended EGD and colonoscopy but patient wants to do endoscopy as outpatient. PT recommended home health. Will consult ID for antibiotic recomme ndation as patient continues to have persistent leukocytosis. Wean off from O2 as tolerated. Will assess for home O2 requirement. 07/08: code med called this am as patient was hypoxic and lethargic. started on iv lasix, consult cardiology 07/09: patient more clinically stable, white count tending down. refusing CT scan. discussed with and she stated that she is considering for placement for the patient 07/10; patient refused labs this morning. patient's wants patient to be admitted to inpt psych facility but Psych recommended no inpatient psychiatric admission necessary at this point and recommended outpatient follow-up. Will discuss with and case management about the discharge planning. If clinically remains stable overnight patient could be DC home with home health t omorrow. Per CM planning to appeal the discharge. Subjective Date of service: 07/10/20 Interval history: Patient seen and examined He is resting on bed now, communicative refusing all test Objective - Exam Narrative Exam: General appearance: Present: lethargic - EENT Eyes: Present: PERRL - Neck Neck: Present: supple - Respiratory Respiratory: right: other (coarse breath sounds) - Cardiovascular Heart Sounds: Present: S1 & S2 - Extremities Extremities: No edema - Abdominal General gastrointestinal: soft, non-tender, non-distended, normal bowel sounds - Psychiatric Psychiatric: flat mood/affect - Neurologic Neurologic: CNII-XII intact,moves all extremities - Constitutional Vitals: Vital Signs - 12hr 07/10/20 07/10/20 07/10/20 07:25 07:33 07:46 Temperature 98.4 F Pulse Rate 84 94 H Respiratory 18 Rate Blood Pressure 100/46 O2 Sat by Pulse 96 94 Oximetry 07/10/20 11:32 Temperature 98.6 F Pulse Rate 95 H Respiratory 16 Rate Blood Pressure 112/59 O2 Sat by Pulse 96 Oximetry - Labs CBC & Chem 7: 07/11/20 00:30 07/11/20 00:30 Labs: Abnormal lab results 07/09/20 Range/Units 16:09 POC Glucose 345 H (70-105)
[2020-07-10] MEDS: SODIUM CHLORIDE 1 GM TAB PO SCH ×3 (21:46→23:37)
[2020-07-10] MEDS: cefTRIAXone/NS 2 GM/100 ML 2 GM/100 ML BAG IV SCH (21:55)
[2020-07-10] MEDS: traZODone 50 MG TAB PO SCH ×2 (21:55→23:37)
[2020-07-10] MEDS ORDERED: INSULIN GLARGINE 100 UNITS/ML SUB-Q SCH (22:00)
[2020-07-11] MEDS: DIVALPROEX DR 250 MG TAB PO SCH ×3 (00:11→21:32)
[2020-07-11] MEDS: traZODone 50 MG TAB PO SCH ×2 (00:11→21:32)
[2020-07-11] MEDS: metroNIDAZOLE 500 MG TAB PO SCH ×4 (00:15→21:32)
[2020-07-11 01:10] LABS: Hematocrit 30.5 % (35.5-45.6); Hemoglobin 10.4 gm/dl (11.8-15.2); Mean Corpuscular HGB Conc 34 % (32-34); Mean Corpuscular Volume 104 fl (84-94); Platelet Count 251 K/mm3 (140-440); Red Blood Count 2.92 M/mm3 (3.65-5.03); Red Cell Distribution Width 15.8 % (13.2-15.2)
[2020-07-11 01:29] LABS: BUN/Creatinine Ratio 24; Blood Urea Nitrogen 22 mg/dL (9-20); Calcium 8.5 mg/dL (8.4-10.2); Hemolysis Index 11
[2020-07-11] MEDS ORDERED: MELATONIN 5 MG TAB PO ONE ×2 (02:07→23:39)
[2020-07-11 05:34] LABS: Basophils % (Manual) 0 % (0.0-1.8); Total Cells Counted 100
[2020-07-11 05:36] LABS: Anisocytosis Few
[2020-07-11 05:37] LABS: Burr Cells Few; Platelet Estimate Consistent w Auto
[2020-07-11] MEDS: LEVOTHYROXINE 112 MCG TAB PO SCH (06:43)
[2020-07-11] MEDS: FUROSEMIDE 20 MG TAB PO SCH (06:45)
[2020-07-11] MEDS: INSULIN LISPRO 100 UNIT/ML VIAL 3 mL SUB-Q SCH ×3 (08:30→17:38)
[2020-07-11] MEDS: SODIUM CHLORIDE 1 GM TAB PO SCH ×2 (09:21→21:32)
[2020-07-11] MEDS: DOXYCYCLINE 100 MG CAP PO SCH ×2 (09:28→21:31)
[2020-07-11] MEDS: POTASSIUM CHLORIDE ER 20 MEQ TAB PO SCH (09:28)
[2020-07-11] MEDS: PANTOPRAZOLE 40 MG TAB PO SCH ×2 (09:28→17:50)
[2020-07-11] MEDS ORDERED: SODIUM CHLORIDE 0.9% 1000 ML 1,000 ML IV SCH (15:00)
--- NOTE | 2020-07-11 15:19 | Progress Note ---
Assessment and Plan Cultures: 07/07/2020 blood culture: no growth A/P: 74-year-old male with hypertension, hypothyroidism, rheumatoid arthritis, schizophrenia initially admitted to inpatient psychiatry was transferred to the medical floor due to shortness of breath and hypoxia: #Neutrophilic leukocytosis: Source unclear. No fever. Mild procalcitonin elevation. Not explained by his low-dose steroid use. Continues to improve. #Acute hypoxic respiratory failure: No evidence of obvious pneumonia on chest x- ray but was hypoxic. Unable to get CT chest, abdomen and pelvis because patient refused. #Rheumatoid arthritis: Immunocompromised. On weekly methotrexate and low-dose prednisone. #Acute encephalopathy: ?meds related Recs: last day of abx: IV ceftriaxone and PO doxycycline, D5 of 5 WBC much improved. Stable for discharge from ID standpoint Jeremi Martinez MD, FACP [facility] ([facility] O: [phone] F: [phone] Subjective Date of service: 07/11/20 Interval history: No fever. Feels well. Wants to go home. Objective - Exam Narrative Exam: Physical Exam: Constitutional: awake, alert, no distress Head, Ears, Nose: Normocephalic, atraumatic. External ears, nose normal Eyes: Conjunctivae/corneas clear. No icterus. No ptosis. Neck: Supple, no meningeal signs Cardiovascular: S1, S2 normal. Respiratory: clear to auscultation bilaterally GI: Soft, non-tender; bowel sounds normal. No peritoneal signs Musculoskeletal: No pedal edema, no cyanosis. Skin: No rash or abscess Hem/Lymphatic: No palpable cervical or supraclavicular nodes. No lymphangitis Psych: no agitation, flat affect Neurological: awake, alert, answering questions. - Constitutional Vitals: Vital Signs Temp Pulse Resp BP Pulse Ox 98.6 F 84 18 96/42 97 07/11/20 07:54 07/11/20 10:00 07/11/20 10:00 07/11/20 07:54 07/11/20 10:00 Temperature -Last 24 Hours Temperature 98.6 F Temperature 97.9 F Temperature 100.0 F Temperature 99.5 F Temperature 98.0 F - Labs CBC & Chem 7: 07/11/20 00:30 07/11/20 00:30 Labs: Abnormal lab results 07/10/20 07/11/20 07/11/20 Range/Units 20:57 00:30 00:30 WBC 11.5 H (4.5-11.0) K/mm3 RBC 2.92 L (3.65-5.03) M/mm3 Hgb 10.4 L (11.8-15.2) gm/dl Hct 30.5 L (35.5-45.6) % MCV 104 H (84-94) fl MCH 36 H (28-32) pg RDW 15.8 H (13.2-15.2) % Monocytes % (Manual) 10.0 H (0.0-7.3) % Monocytes # (Manual) 1.2 H (0.0-0.8) K/mm3 Eosinophils # (Manual) 0.5 H (0.0-0.4) K/mm3 Sodium 134 L (137-145) mmol/L Chloride 94.2 L (98-107) mmol/L BUN 22 H (9-20) mg/dL Glucose 441 H (75-100) mg/dL POC Glucose 373 H (70-105) 07/11/20 07/11/20 Range/Units 08:07 11:21 WBC (4.5-11.0) K/mm3 RBC (3.65-5.03) M/mm3 Hgb (11.8-15.2) gm/dl Hct (35.5-45.6) % MCV (84-94) fl MCH (28-32) pg RDW (13.2-15.2) % Monocytes % (Manual) (0.0-7.3) % Monocytes # (Manual) (0.0-0.8) K/mm3 Eosinophils # (Manual) (0.0-0.4) K/mm3 Sodium (137-145) mmol/L Chloride (98-107) mmol/L BUN (9-20) mg/dL Glucose (75-100) mg/dL POC Glucose 211 H 227 H (70-105)
[2020-07-11 17:04] LABS: Hematocrit 27.1 % (35.5-45.6); Hemoglobin 9.4 gm/dl (11.8-15.2); Mean Corpuscular HGB Conc 35 % (32-34); Mean Corpuscular Volume 103 fl (84-94); Platelet Count 254 K/mm3 (140-440); Red Blood Count 2.64 M/mm3 (3.65-5.03); Red Cell Distribution Width 15.3 % (13.2-15.2)
--- NOTE | 2020-07-11 17:06 | Progress Note ---
Assessment and Plan Mild acute systolic heart failure (EF 45-50%) Leukocytosis DM GI bleed Schizophrenia Recommend: Continue current therapy including gentle diuresis Subjective Date of service: 07/11/20 Interval history: No acute events Objective Vital Signs Temp Pulse Pulse Resp BP Pulse Ox 07/11/20 11:11 98.4 F 96 H 18 103/48 99 07/11/20 10:00 84 18 97 07/11/20 09:11 93 07/11/20 07:54 98.6 F 85 18 96/42 99 07/11/20 04:05 97.9 F 87 18 111/54 36 L 07/11/20 01:42 97/44 07/11/20 00:01 100.0 F H 108 H 20 81/48 99 07/10/20 22:10 94 H 18 96 07/10/20 21:11 95 07/10/20 20:45 103 H 07/10/20 19:03 99.5 F 94 H 20 97/48 96 - Physical Examination HEENT: Positive: PERRL Neck: Positive: trachea midline Cardiac: Positive: Reg Rate and Rhythm Lungs: Positive: clear to auscultation Neuro: Positive: Grossly Intact Extremities: Absent: edema - Labs and Meds CBC 07/11/20 07/11/20 Range/Units 00:30 16:54 WBC 11.5 H 13.5 H (4.5-11.0) K/mm3 RBC 2.92 L 2.64 L (3.65-5.03) M/mm3 Hgb 10.4 L 9.4 L (11.8-15.2) gm/dl Hct 30.5 L 27.1 L (35.5-45.6) % Plt Count 251 254 (140-440) K/mm3 Comprehensive Metabolic Panel 07/11/20 Range/Units 00:30 Sodium 134 L (137-145) mmol/L Potassium 4.0 D (3.6-5.0) mmol/L Chloride 94.2 L (98-107) mmol/L Carbon Dioxide 24 (22-30) mmol/L BUN 22 H (9-20) mg/dL Creatinine 0.9 (0.8-1.3) mg/dL Glucose 441 H (75-100) mg/dL Calcium 8.5 (8.4-10.2) mg/dL
--- NOTE | 2020-07-11 18:49 | Progress Note ---
Assessment and Plan --Acute CHF exacerbation started on lasix iv consulted cardiology monitor ins/ox, daily wt ---Acute respiratory failure with hypoxia Likely from PNA vs CHF exacerbation Continue oxygen supplementation 07/03. Chest xray shows scarring of the left lobe with no clear pneumonia or pulmonary edema NM lung scan -ve for PE. Echo with 45% EF ---Poorly controlled Diabetes mellitus Continue sliding scale insulin, Lantus at night HbA1c 9.5 Endocrinology follow up in the office after discharge ---Leucocytosis Possibly from steroids but procalcitonin is elevated and he is hypoxic Started on empirical antibiotics, off steroid consulted ID for further management ordered CT chest, abdomen and pelvis with IV contrast to evaluate cause of leucocytosis - but patient refused ---Hyponatremia Trend, Osmolality serum and urine ordered --Sinus Tachycardia likely from respiratory failure. cont to follow ---Hypothyroidism (acquired) cont synthroid , normal TSH and T4 ---Hemoglobin drop/ Upper GI bleed Has dark tarry stool as per RN cont PPI Stool +ve guaiac. GI consulted -patient does not want any endoscopy at this time ---Rheumatoid arthritis Methotrexate weekly, off steroid for now ---HTN (hypertension) Lisinopril 5 mg daily ---Schizophrenia, paranoid type Management as per psych DVT prophylaxis - heparin Full code Brief History 76 year old with a medical history of HTN, Hypothyroidism, RA, Schizophrenia who is being admitted from psych unit with complaints of shortness of breath. He was initially admitted to the psych unit due to his psych condition but he developed shortness of breath and bthen admitted to medicine floor. 07/04. Evaluated patient in the psych unit today and he was on nasal cannula. He had no complaints. Decision was made to admit to the hospital as he has tachycardia and hypoxia. Work up has commenced. His chest xray performed on 07/03 shows no clear infiltrate but his labs shows leukocytosis with a left shift,elevated ddimer and probnp. Procalcitonin was positive and he was started on antibiotics. CTA chest ordered. 07/05. Patient seen and examined at bedside this morning. He has no complaints. He still on nasal cannula 2 L with sats in the 90s. PT/OT ordered. Still waiting for CTA chest to be performed. His labs this morning shows hyponatremia and EUSEBIA. Hold CTA chest - will get NM lung perfusion scan instead. 07/06. NM lung scan is negative for PE. Labs shows hyponatremia and hypokalemia. Hb drop noted. RN reports dark tarry stool. Will hold heparin for now. Stool guaiac ordered. GI eval 07/07: GI recommended EGD and colonoscopy but patient wants to do endoscopy as outpatient. PT recommended home health. Will consult ID for antibiotic recomme ndation as patient continues to have persistent leukocytosis. Wean off from O2 as tolerated. Will assess for home O2 requirement. 07/08: code med called this am as patient was hypoxic and lethargic. started on iv lasix, consult cardiology 07/09: patient more clinically stable, white count tending down. refusing CT scan. discussed with and she stated that she is considering for placement for the patient 07/10; patient refused labs this morning. patient's wants patient to be admitted to inpt psych facility but Psych recommended no inpatient psychiatric admission necessary at this point and recommended outpatient follow-up. Will discuss with and case management about the discharge planning. If clinically remains stable overnight patient could be DC home with home health t omorrow. Per CM planning to appeal the discharge. 07/11: planned to d/c today. patient's planning to appeal the discharge. BP at low 90s. Will reduce the dose of Lasix, continue to monitor Subjective Date of service: 07/11/20 Interval history: Patient seen and examined He is resting on bed now, communicative Patient remains on room air Objective - Exam Narrative Exam: General appearance: Present: lethargic - EENT Eyes: Present: PERRL - Neck Neck: Present: supple - Respiratory Respiratory: right: other (coarse breath sounds) - Cardiovascular Heart Sounds: Present: S1 & S2 - Extremities Extremities: No edema - Abdominal General gastrointestinal: soft, non-tender, non-distended, normal bowel sounds - Psychiatric Psychiatric: flat mood/affect - Neurologic Neurologic: CNII-XII intact,moves all extremities - Constitutional Vitals: Vital Signs - 12hr 07/11/20 07/11/20 07/11/20 07:54 09:11 10:00 Temperature 98.6 F Pulse Rate 85 Pulse Rate [ 84 Apical] Respiratory 18 18 Rate Blood Pressure 96/42 O2 Sat by Pulse 99 93 97 Oximetry 07/11/20 07/11/20 11:11 12:45 Temperature 98.4 F Pulse Rate 96 H 100 H Pulse Rate [ Apical] Respiratory 18 Rate Blood Pressure 103/48 O2 Sat by Pulse 99 Oximetry - Labs CBC & Chem 7: 07/11/20 16:54 07/11/20 00:30 Labs: Abnormal lab results 07/10/20 07/11/20 07/11/20 Range/Units 20:57 00:30 00:30 WBC 11.5 H (4.5-11.0) K/mm3 RBC 2.92 L (3.65-5.03) M/mm3 Hgb 10.4 L (11.8-15.2) gm/dl Hct 30.5 L (35.5-45.6) % MCV 104 H (84-94) fl MCH 36 H (28-32) pg MCHC (32-34) % RDW 15.8 H (13.2-15.2) % Monocytes % (Manual) 10.0 H (0.0-7.3) % Monocytes # (Manual) 1.2 H (0.0-0.8) K/mm3 Eosinophils # (Manual) 0.5 H (0.0-0.4) K/mm3 Sodium 134 L (137-145) mmol/L Chloride 94.2 L (98-107) mmol/L BUN 22 H (9-20) mg/dL Glucose 441 H (75-100) mg/dL POC Glucose 373 H (70-105) 07/11/20 07/11/20 07/11/20 Range/Units 08:07 11:21 16:50 WBC (4.5-11.0) K/mm3 RBC (3.65-5.03) M/mm3 Hgb (11.8-15.2) gm/dl Hct (35.5-45.6) % MCV (84-94) fl MCH (28-32) pg MCHC (32-34) % RDW (13.2-15.2) % Monocytes % (Manual) (0.0-7.3) % Monocytes # (Manual) (0.0-0.8) K/mm3 Eosinophils # (Manual) (0.0-0.4) K/mm3 Sodium (137-145) mmol/L Chloride (98-107) mmol/L BUN (9-20) mg/dL Glucose (75-100) mg/dL POC Glucose 211 H 227 H 62 L (70-105) 07/11/20 07/11/20 Range/Units 16:54 18:56 WBC 13.5 H (4.5-11.0) K/mm3 RBC 2.64 L (3.65-5.03) M/mm3 Hgb 9.4 L (11.8-15.2) gm/dl Hct 27.1 L (35.5-45.6) % MCV 103 H (84-94) fl MCH 36 H (28-32) pg MCHC 35 H (32-34) % RDW 15.3 H (13.2-15.2) % Monocytes % (Manual) (0.0-7.3) % Monocytes # (Manual) (0.0-0.8) K/mm3 Eosinophils # (Manual) (0.0-0.4) K/mm3 Sodium (137-145) mmol/L Chloride (98-107) mmol/L BUN (9-20) mg/dL Glucose (75-100) mg/dL POC Glucose 220 H (70-105)
[2020-07-11] MEDS: INSULIN GLARGINE 100 UNITS/ML SUB-Q SCH (21:31)
[2020-07-11] MEDS: cefTRIAXone/NS 2 GM/100 ML 2 GM/100 ML BAG IV SCH (21:31)
[2020-07-12] MEDS ORDERED: MORPHINE 2 MG/1 ML INJ IV ONE (02:48)
[2020-07-12] MEDS: LEVOTHYROXINE 112 MCG TAB PO SCH (06:41)
[2020-07-12] MEDS: metroNIDAZOLE 500 MG TAB PO SCH ×3 (06:41→22:45)
[2020-07-12] MEDS: INSULIN LISPRO 100 UNIT/ML VIAL 3 mL SUB-Q SCH ×3 (08:07→16:59)
[2020-07-12] MEDS: DIVALPROEX DR 250 MG TAB PO SCH ×2 (09:36→22:45)
[2020-07-12] MEDS: PANTOPRAZOLE 40 MG TAB PO SCH ×2 (09:36→15:54)
[2020-07-12] MEDS: DOXYCYCLINE 100 MG CAP PO SCH ×2 (09:38→22:45)
[2020-07-12] MEDS: FUROSEMIDE 20 MG TAB PO SCH (09:38)
[2020-07-12] MEDS: POTASSIUM CHLORIDE ER 20 MEQ TAB PO SCH (09:38)
[2020-07-12] MEDS: SODIUM CHLORIDE 1 GM TAB PO SCH ×2 (09:41→22:45)
--- NOTE | 2020-07-12 13:45 | Progress Note ---
Assessment and Plan Mild acute systolic heart failure (EF 45-50%) Leukocytosis DM GI bleed Schizophrenia Recommend: Continue current therapy including gentle diuresis Subjective Date of service: 07/12/20 Interval history: No complaints. Dyspnea improving Objective Vital Signs Temp Pulse Pulse Resp BP BP Pulse Ox 07/12/20 12:52 98.6 F 18 78/39 07/12/20 09:47 96 07/12/20 09:10 78 90/63 07/12/20 08:05 98.1 F 83 18 86/45 98 07/12/20 07:55 86 18 100 07/12/20 07:25 86 07/12/20 04:22 98.9 F 95 H 18 86/42 98 07/12/20 03:10 18 07/11/20 23:42 99.7 F H 107 H 20 97/51 98 07/11/20 20:57 104 H 18 100 07/11/20 20:13 95 07/11/20 19:53 98.7 F 104 H 20 109/64 95 07/11/20 19:48 109 H 07/11/20 16:35 98.2 F 88 18 105/47 99 - Physical Examination HEENT: Positive: PERRL Neck: Positive: trachea midline Cardiac: Positive: Reg Rate and Rhythm Lungs: Positive: Decreased Breath Sounds Neuro: Positive: Grossly Intact Extremities: Absent: edema - Labs and Meds CBC 07/11/20 Range/Units 16:54 WBC 13.5 H (4.5-11.0) K/mm3 RBC 2.64 L (3.65-5.03) M/mm3 Hgb 9.4 L (11.8-15.2) gm/dl Hct 27.1 L (35.5-45.6) % Plt Count 254 (140-440) K/mm3
--- NOTE | 2020-07-12 14:32 | Progress Note ---
Assessment and Plan --Acute CHF exacerbation s/p lasix iv, patient now appears compensated consulted cardiology monitor ins/ox, daily wt ---Acute respiratory failure with hypoxia Likely from PNA vs CHF exacerbation Continue oxygen supplementation 07/03. Chest xray shows scarring of the left lobe with no clear pneumonia or pulmonary edema NM lung scan -ve for PE. Echo with 45% EF ---Poorly controlled Diabetes mellitus Continue sliding scale insulin, Lantus at night HbA1c 9.5 Endocrinology follow up in the office after discharge ---Leucocytosis, trended down Possibly from steroids but procalcitonin is elevated and he is hypoxic Completed 5 days of empirical antibiotics with Rocephin, off steroid consulted ID for further management ordered CT chest, abdomen and pelvis with IV contrast to evaluate cause of leucocytosis - but patient refused ---Hyponatremia Trend, Osmolality serum and urine ordered --Sinus Tachycardia likely from respiratory failure. cont to follow ---Hypothyroidism (acquired) cont synthroid , normal TSH and T4 ---Hemoglobin drop/ Upper GI bleed Has dark tarry stool as per RN cont PPI Stool +ve guaiac. GI consulted -patient does not want any endoscopy at this time ---Rheumatoid arthritis Methotrexate weekly, off steroid for now ---HTN (hypertension) Lisinopril 5 mg daily ---Schizophrenia, paranoid type Management as per psych --Diarrhea, will place on Imodium, patient already on Floxin DVT prophylaxis - heparin Full code Brief History 76 year old with a medical history of HTN, Hypothyroidism, RA, Schizophrenia who is being admitted from psych unit with complaints of shortness of breath. He was initially admitted to the psych unit due to his psych condition but he developed shortness of breath and bthen admitted to medicine floor. 07/04. Evaluated patient in the psych unit today and he was on nasal cannula. He had no complaints. Decision was made to admit to the hospital as he has tachycardia and hypoxia. Work up has commenced. His chest xray performed on 07/03 shows no clear infiltrate but his labs shows leukocytosis with a left shift,elevated ddimer and probnp. Procalcitonin was positive and he was started on antibiotics. CTA chest ordered. 07/05. Patient seen and examined at bedside this morning. He has no complaints. He still on nasal cannula 2 L with sats in the 90s. PT/OT ordered. Still waiting for CTA chest to be performed. His labs this morning shows hyponatremia and EUSEBIA. Hold CTA chest - will get NM lung perfusion scan instead. 07/06. NM lung scan is negative for PE. Labs shows hyponatremia and hypokalemia. Hb drop noted. RN reports dark tarry stool. Will hold heparin for now. Stool guaiac ordered. GI eval 07/07: GI recommended EGD and colonoscopy but patient wants to do endoscopy as outpatient. PT recommended home health. Will consult ID for antibiotic recommendation as patient continues to have persistent leukocytosis. Wean off from O2 as tolerated. Will assess for home O2 requirement. 07/08: code med called this am as patient was hypoxic and lethargic. started on iv lasix, consult cardiology 07/09: patient more clinically stable, white count tending down. refusing CT scan. discussed with and she stated that she is considering for placement for the patient 07/10; patient refused labs this morning. patient's wants patient to be admitted to in psych facility but Psych recommended no inpatient psychiatric admission necessary at this point and recommended outpatient follow-up. Will discuss with and case management about the discharge planning. If clinically remains stable overnight patient could be DC home with home health tomorrow. Per CM planning to appeal the discharge. 07/11: planned to d/c today. patient's planning to appeal the discharge. BP at low 90s. Will reduce the dose of Lasix, continue to monitor 07/12: Blood pressure remains low, will stop Lasix. Patient appears compensated now. Will consider IV fluid if BP remains low. Patient discharge is being hold as planned for appeal. Subjective Date of service: 07/12/20 Interval history: Patient seen and examined He is resting on bed now, communicative Patient remains on room air c/o diarrhea Objective - Exam Narrative Exam: General appearance: Present: lethargic - EENT Eyes: Present: PERRL - Neck Neck: Present: supple - Respiratory Respiratory: right: other (coarse breath sounds) - Cardiovascular Heart Sounds: Present: S1 & S2 - Extremities Extremities: No edema - Abdominal General gastrointestinal: soft, non-tender, non-distended, normal bowel sounds - Psychiatric Psychiatric: flat mood/affect - Neurologic Neurologic: CNII-XII intact,moves all extremities - Constitutional Vitals: Vital Signs - 12hr 07/12/20 07/12/20 07/12/20 03:10 04:22 07:25 Temperature 98.9 F Pulse Rate 95 H 86 Pulse Rate [ Apical] Respiratory 18 18 Rate Blood Pressure 86/42 Blood Pressure [Right] O2 Sat by Pulse 98 Oximetry 07/12/20 07/12/20 07/12/20 07:55 08:05 09:10 Temperature 98.1 F Pulse Rate 83 78 Pulse Rate [ 86 Apical] Respiratory 18 18 Rate Blood Pressure Blood Pressure 86/45 90/63 [Right] O2 Sat by Pulse 100 98 Oximetry 07/12/20 07/12/20 09:47 12:52 Temperature 98.6 F Pulse Rate Pulse Rate [ Apical] Respiratory 18 Rate Blood Pressure 78/39 Blood Pressure [Right] O2 Sat by Pulse 96 Oximetry - Labs CBC & Chem 7: 07/11/20 16:54 07/11/20 00:30 Labs: Abnormal lab results 07/11/20 07/11/20 07/11/20 Range/Units 16:50 16:54 18:56 WBC 13.5 H (4.5-11.0) K/mm3 RBC 2.64 L (3.65-5.03) M/mm3 Hgb 9.4 L (11.8-15.2) gm/dl Hct 27.1 L (35.5-45.6) % MCV 103 H (84-94) fl MCH 36 H (28-32) pg MCHC 35 H (32-34) % RDW 15.3 H (13.2-15.2) % POC Glucose 62 L 220 H (70-105) Hemoglobin A1c (4-6) % 07/12/20 07/12/20 Range/Units 06:44 11:55 WBC (4.5-11.0) K/mm3 RBC (3.65-5.03) M/mm3 Hgb (11.8-15.2) gm/dl Hct (35.5-45.6) % MCV (84-94) fl MCH (28-32) pg MCHC (32-34) % RDW (13.2-15.2) % POC Glucose 267 H (70-105) Hemoglobin A1c 8.6 H (4-6) %
[2020-07-12] MEDS: DIPHENOXYLATE/ATROPINE TAB PO PRN (15:54)
[2020-07-12] MEDS: traZODone 50 MG TAB PO SCH (22:45)
[2020-07-12] MEDS: ACETAMINOPHEN 325 MG TAB PO PRN (22:49)
[2020-07-12] MEDS: INSULIN GLARGINE 100 UNITS/ML SUB-Q SCH (22:52)
[2020-07-13] MEDS: ACETAMINOPHEN 325 MG TAB PO PRN ×3 (04:53→21:23)
[2020-07-13] MEDS: LEVOTHYROXINE 112 MCG TAB PO SCH (05:27)
[2020-07-13] MEDS: metroNIDAZOLE 500 MG TAB PO SCH (05:27)
[2020-07-13] MEDS: INSULIN LISPRO 100 UNIT/ML VIAL 3 mL SUB-Q SCH ×3 (08:06→16:13)
[2020-07-13] MEDS: PANTOPRAZOLE 40 MG TAB PO SCH (08:07)
[2020-07-13] MEDS: POTASSIUM CHLORIDE ER 20 MEQ TAB PO SCH (09:21)
[2020-07-13] MEDS: SODIUM CHLORIDE 1 GM TAB PO SCH ×2 (09:21→21:23)
[2020-07-13] MEDS: DOXYCYCLINE 100 MG CAP PO SCH (09:21)
[2020-07-13] MEDS: DIVALPROEX DR 250 MG TAB PO SCH ×2 (09:24→21:23)
--- NOTE | 2020-07-13 09:26 | Progress Note ---
<THADANGIETIM - Last Filed: 07/13/20 09:22> Assessment and Plan Acute hypoxic respiratory failure VQ scan reports no perfusion abnormalities Leukocytosis Hypertension Diabetes Schizophrenia An echocardiogram showed left ventricular systolic function at the lower limits of normal with ejection fraction 45 to 50%. Conservative cardiac management. Subjective Date of service: 07/13/20 Interval history: Patient is resting in bed comfortably. He denies chest pain and shortness of breath. Objective Vital Signs Temp Pulse Resp BP Pulse Ox 07/13/20 07:16 98.9 F 90 20 107/50 93 07/13/20 03:54 98.6 F 94 H 18 85/40 96 07/13/20 00:00 91 H 07/12/20 23:13 98.5 F 98 H 16 92/59 95 07/12/20 22:49 18 07/12/20 21:27 97 07/12/20 19:14 99.4 F 91 H 14 99/48 96 07/12/20 16:07 98.4 F 95 H 18 110/45 99 07/12/20 12:52 98.6 F 18 78/39 07/12/20 09:47 96 - Physical Examination General: No Apparent Distress HEENT: Positive: PERRL Neck: Positive: trachea midline Cardiac: Positive: Reg Rate and Rhythm Lungs: Positive: Decreased Breath Sounds Neuro: Positive: Grossly Intact Extremities: Absent: edema <ALISA HERNANDEZ - Last Filed: 07/13/20 20:43> Subjective Interval history: I SAW THIS PT & AGREE WITH THE Dx & Tx PLAN Objective Vital Signs Temp Pulse Resp BP BP Pulse Ox 07/13/20 19:21 99.0 F 104 H 20 95/57 92 07/13/20 15:56 98.7 F 98 H 20 95/54 97 07/13/20 13:59 98 H 90/48 96 07/13/20 13:56 79 90/48 96 07/13/20 11:40 97.8 F 92 H 20 92/51 99 07/13/20 10:15 98 07/13/20 10:00 96 H 07/13/20 07:16 98.9 F 90 20 107/50 93 07/13/20 03:54 98.6 F 94 H 18 85/40 96 07/13/20 00:00 91 H 07/12/20 23:13 98.5 F 98 H 16 92/59 95 07/12/20 22:49 18 07/12/20 21:27 97
--- NOTE | 2020-07-13 12:12 | Progress Note ---
Assessment and Plan Cultures: 07/07/2020 blood culture: no growth A/P: 74-year-old male with hypertension, hypothyroidism, rheumatoid arthritis, schizophrenia initially admitted to inpatient psychiatry was transferred to the medical floor due to shortness of breath and hypoxia: #Neutrophilic leukocytosis: Source unclear. No fever. Mild procalcitonin elevation. Not explained by his low-dose steroid use. Unable to get CT chest, abdomen and pelvis because patient refused. Completed empiric abx course for pneumonia. #Acute hypoxic respiratory failure: No evidence of obvious pneumonia on chest x- ray but was hypoxic. Resolved. #Rheumatoid arthritis: Immunocompromised. On weekly methotrexate and low-dose prednisone. #Acute encephalopathy: ?meds related. Resolved. Recs: continue off antibiotics Jeremi Martinez MD, FACP [facility] ([facility]) O: [phone] F: [phone] Subjective Date of service: 07/13/20 Interval history: No fever. Feels well. Denies any complaints. States he is hungry and is waiting for food. Objective - Exam Narrative Exam: Physical Exam: Constitutional: awake, alert, no distress Head, Ears, Nose: Normocephalic, atraumatic. External ears, nose normal Eyes: Conjunctivae/corneas clear. No icterus. No ptosis. Neck: Supple, no meningeal signs Cardiovascular: S1, S2 normal. Respiratory: clear to auscultation bilaterally GI: Soft, non-tender; bowel sounds normal. No peritoneal signs Musculoskeletal: No pedal edema, no cyanosis. Skin: No rash or abscess Hem/Lymphatic: No palpable cervical or supraclavicular nodes. No lymphangitis Psych: no agitation, flat affect Neurological: awake, alert, answering questions. - Constitutional Vitals: Vital Signs Temp Pulse Resp BP Pulse Ox 98.9 F 96 H 20 107/50 93 07/13/20 07:16 07/13/20 10:00 07/13/20 07:16 07/13/20 07:16 07/13/20 07:16 Temperature -Last 24 Hours Temperature 98.9 F Temperature 98.6 F Temperature 98.5 F Temperature 99.4 F Temperature 98.4 F Temperature 98.6 F - Labs CBC & Chem 7: 07/11/20 16:54 07/11/20 00:30 Labs: Abnormal lab results 07/12/20 07/12/20 07/13/20 Range/Units 16:21 20:40 07:27 POC Glucose 184 H 142 H 271 H (70-105)
[2020-07-13] MEDS: FUROSEMIDE 20 MG TAB PO SCH (13:37)
--- NOTE | 2020-07-13 15:51 | Progress Note ---
Assessment and Plan --Acute CHF exacerbation s/p lasix iv, patient now appears compensated consulted cardiology monitor ins/ox, daily wt ---Acute respiratory failure with hypoxia Likely from PNA vs CHF exacerbation Continue oxygen supplementation 07/03. Chest xray shows scarring of the left lobe with no clear pneumonia or pulmonary edema NM lung scan -ve for PE. Echo with 45% EF ---Poorly controlled Diabetes mellitus Continue sliding scale insulin, Lantus at night HbA1c 9.5 Endocrinology follow up in the office after discharge ---Leucocytosis, trended down Possibly from steroids but procalcitonin is elevated and he is hypoxic Completed 5 days of empirical antibiotics with Rocephin, off steroid consulted ID for further management ordered CT chest, abdomen and pelvis with IV contrast to evaluate cause of leucocytosis - but patient refused ---Hyponatremia Trend, Osmolality serum and urine ordered --Sinus Tachycardia likely from respiratory failure. cont to follow ---Hypothyroidism (acquired) cont synthroid , normal TSH and T4 ---Hemoglobin drop/ Upper GI bleed Has dark tarry stool as per RN cont PPI Stool +ve guaiac. GI consulted -patient does not want any endoscopy at this time ---Rheumatoid arthritis Methotrexate weekly, off steroid for now ---HTN (hypertension) Lisinopril 5 mg daily ---Schizophrenia, paranoid type Management as per psych --dementia with behavioral changes, continue supportive care --Diarrhea, on Imodium, patient already on Flagyl DVT prophylaxis - heparin Full code Brief History 76 year old with a medical history of HTN, Hypothyroidism, RA, Schizophrenia who is being admitted from psych unit with complaints of shortness of breath. He was initially admitted to the psych unit due to his psych condition but he developed shortness of breath and bthen admitted to medicine floor. 07/04. Evaluated patient in the psych unit today and he was on nasal cannula. He had no complaints. Decision was made to admit to the hospital as he has tachycardia and hypoxia. Work up has commenced. His chest xray performed on 07/03 shows no clear infiltrate but his labs shows leukocytosis with a left shift,elevated ddimer and probnp. Procalcitonin was positive and he was started on antibiotics. CTA chest ordered. 07/05. Patient seen and examined at bedside this morning. He has no complaints. He still on nasal cannula 2 L with sats in the 90s. PT/OT ordered. Still waiting for CTA chest to be performed. His labs this morning shows hyponatremia and EUSEBIA. Hold CTA chest - will get NM lung perfusion scan instead. 07/06. NM lung scan is negative for PE. Labs shows hyponatremia and hypokalemia. Hb drop noted. RN reports dark tarry stool. Will hold heparin for now. Stool guaiac ordered. GI eval 07/07: GI recommended EGD and colonoscopy but patient wants to do endoscopy as outpatient. PT recommended home health. Will consult ID for antibiotic recommendation as patient continues to have persistent leukocytosis. Wean off from O2 as tolerated. Will assess for home O2 requirement. 07/08: code med called this am as patient was hypoxic and lethargic. started on iv lasix, consult cardiology 07/09: patient more clinically stable, white count tending down. refusing CT scan. discussed with and she stated that she is considering for placement for the patient 07/10; patient refused labs this morning. patient's wants patient to be admitted to in psych facility but Psych recommended no inpatient psychiatric admission necessary at this point and recommended outpatient follow-up. Will discuss with and case management about the discharge planning. If cli nically remains stable overnight patient could be DC home with home health tomorrow. Per CM planning to appeal the discharge. 07/11: planned to d/c today. patient's planning to appeal the discharge. BP at low 90s. Will reduce the dose of Lasix, continue to monitor 07/12: Blood pressure remains low, will stop Lasix. Patient appears compensated now. Will consider IV fluid if BP remains low. Patient discharge is being hold as planned for appeal. 07/13: Patient's opted for the discharge. business banking manager working on discharge planning. Subjective Date of service: 07/13/20 Interval history: Patient seen and examined He is resting on bed now, communicative Patient remains on room air resolved diarrhea Objective - Exam Narrative Exam: General appearance: Present: lethargic - EENT Eyes: Present: PERRL - Neck Neck: Present: supple - Respiratory Respiratory: right: other (coarse breath sounds) - Cardiovascular Heart Sounds: Present: S1 & S2 - Extremities Extremities: No edema - Abdominal General gastrointestinal: soft, non-tender, non-distended, normal bowel sounds - Psychiatric Psychiatric: flat mood/affect - Neurologic Neurologic: CNII-XII intact,moves all extremities - Constitutional Vitals: Vital Signs - 12hr 07/13/20 07/13/20 07/13/20 03:54 07:16 10:00 Temperature 98.6 F 98.9 F Pulse Rate 94 H 90 96 H Respiratory 18 20 Rate Blood Pressure 85/40 107/50 Blood Pressure [Right] O2 Sat by Pulse 96 93 Oximetry 07/13/20 07/13/20 11:40 13:56 Temperature 97.8 F Pulse Rate 92 H 79 Respiratory 20 Rate Blood Pressure 92/51 Blood Pressure 90/48 [Right] O2 Sat by Pulse 99 96 Oximetry - Labs CBC & Chem 7: 07/11/20 16:54 07/11/20 00:30 Labs: Abnormal lab results 07/12/20 07/12/20 07/13/20 Range/Units 16:21 20:40 07:27 POC Glucose 184 H 142 H 271 H (70-105) 07/13/20 Range/Units 11:56 POC Glucose 216 H (70-105)
[2020-07-13] MEDS: traZODone 50 MG TAB PO SCH (21:23)
[2020-07-13] MEDS: INSULIN GLARGINE 100 UNITS/ML SUB-Q SCH (21:24)
[2020-07-14] MEDS: ACETAMINOPHEN 325 MG TAB PO PRN (05:51)
[2020-07-14] MEDS: LEVOTHYROXINE 112 MCG TAB PO SCH (05:51)
[2020-07-14] MEDS: PANTOPRAZOLE 40 MG TAB PO SCH ×3 (09:12→21:59)
[2020-07-14] MEDS: INSULIN LISPRO 100 UNIT/ML VIAL 3 mL SUB-Q SCH ×3 (09:12→15:47)
[2020-07-14] MEDS: DIVALPROEX DR 250 MG TAB PO SCH ×2 (09:13→22:02)
[2020-07-14] MEDS: POTASSIUM CHLORIDE ER 20 MEQ TAB PO SCH (09:13)
[2020-07-14] MEDS: FUROSEMIDE 20 MG TAB PO SCH (09:17)
--- NOTE | 2020-07-14 09:46 | Progress Note ---
Assessment and Plan Acute hypoxic respiratory failure VQ scan reports no perfusion abnormalities Leukocytosis Hypertension Diabetes Schizophrenia An echocardiogram showed left ventricular systolic function at the lower limits of normal with ejection fraction 45 to 50%. Conservative cardiac management. Subjective Date of service: 07/14/20 Interval history: Patient is resting in bed comfortably. He denies chest pain and shortness of breath. Wants to go home. Objective Vital Signs Temp Pulse Resp BP BP Pulse Ox 07/14/20 07:24 97.4 F L 85 92/51 97 07/14/20 05:51 18 07/14/20 04:12 98 F 112 H 18 106/57 96 07/13/20 22:59 98.3 F 18 87/57 07/13/20 22:58 98.3 F 98 H 18 89/53 97 07/13/20 21:23 18 07/13/20 21:07 94 07/13/20 20:45 104 H 07/13/20 19:21 99.0 F 104 H 20 95/57 92 07/13/20 15:56 98.7 F 98 H 20 95/54 97 07/13/20 13:59 98 H 90/48 96 07/13/20 13:56 79 90/48 96 07/13/20 11:40 97.8 F 92 H 20 92/51 99 07/13/20 10:15 98 07/13/20 10:00 96 H - Physical Examination General: No Apparent Distress HEENT: Positive: PERRL Neck: Positive: trachea midline Cardiac: Positive: Reg Rate and Rhythm Lungs: Positive: Decreased Breath Sounds Extremities: Absent: edema
--- NOTE | 2020-07-14 15:06 | Progress Note ---
Assessment and Plan --Acute CHF exacerbation s/p lasix iv, patient now appears compensated consulted cardiology monitor ins/ox, daily wt ---Acute respiratory failure with hypoxia Likely from PNA vs CHF exacerbation Continue oxygen supplementation 07/03. Chest xray shows scarring of the left lobe with no clear pneumonia or pulmonary edema NM lung scan -ve for PE. Echo with 45% EF ---Poorly controlled Diabetes mellitus Continue sliding scale insulin, Lantus at night HbA1c 9.5 Endocrinology follow up in the office after discharge ---Leucocytosis, trended down Possibly from steroids but procalcitonin is elevated and he is hypoxic Completed 5 days of empirical antibiotics with Rocephin, off steroid consulted ID for further management ordered CT chest, abdomen and pelvis with IV contrast to evaluate cause of leucocytosis - but patient refused ---Hyponatremia Trend, Osmolality serum and urine ordered --Sinus Tachycardia likely from respiratory failure. cont to follow ---Hypothyroidism (acquired) cont synthroid , normal TSH and T4 ---Hemoglobin drop/ Upper GI bleed Has dark tarry stool as per RN cont PPI Stool +ve guaiac. GI consulted -patient does not want any endoscopy at this time ---Rheumatoid arthritis Methotrexate weekly, off steroid for now ---HTN (hypertension) Lisinopril 5 mg daily ---Schizophrenia, paranoid type Management as per psych --dementia with behavioral changes, continue supportive care --Diarrhea, on Imodium, patient already on Flagyl DVT prophylaxis - heparin Full code Brief History 76 year old with a medical history of HTN, Hypothyroidism, RA, Schizophrenia who is being admitted from psych unit with complaints of shortness of breath. He was initially admitted to the psych unit due to his psych condition but he developed shortness of breath and bthen admitted to medicine floor. 07/04. Evaluated patient in the psych unit today and he was on nasal cannula. He had no complaints. Decision was made to admit to the hospital as he has tachycardia and hypoxia. Work up has commenced. His chest xray performed on 07/03 shows no clear infiltrate but his labs shows leukocytosis with a left shift,elevated ddimer and probnp. Procalcitonin was positive and he was started on antibiotics. CTA chest ordered. 07/05. Patient seen and examined at bedside this morning. He has no complaints. He still on nasal cannula 2 L with sats in the 90s. PT/OT ordered. Still waiting for CTA chest to be performed. His labs this morning shows hyponatremia and EUSEBIA. Hold CTA chest - will get NM lung perfusion scan instead. 07/06. NM lung scan is negative for PE. Labs shows hyponatremia and hypokalemia. Hb drop noted. RN reports dark tarry stool. Will hold heparin for now. Stool guaiac ordered. GI eval 07/07: GI recommended EGD and colonoscopy but patient wants to do endoscopy as outpatient. PT recommended home health. Will consult ID for antibiotic recommendation as patient continues to have persistent leukocytosis. Wean off from O2 as tolerated. Will assess for home O2 requirement. 07/08: code med called this am as patient was hypoxic and lethargic. started on iv lasix, consult cardiology 07/09: patient more clinically stable, white count tending down. refusing CT scan. discussed with and she stated that she is considering for placement for the patient 07/10; patient refused labs this morning. patient's wants patient to be admitted to in psych facility but Psych recommended no inpatient psychiatric admission necessary at this point and recommended outpatient follow-up. Will discuss with and case management about the discharge planning. If cli nically remains stable overnight patient could be DC home with home health tomorrow. Per CM planning to appeal the discharge. 07/11: planned to d/c today. patient's planning to appeal the discharge. BP at low 90s. Will reduce the dose of Lasix, continue to monitor 07/12: Blood pressure remains low, will stop Lasix. Patient appears compensated now. Will consider IV fluid if BP remains low. Patient discharge is being hold as planned for appeal. 07/13: Patient's appealed for the discharge. trade manager working on discharge planning. 07/14: discharge pending on appeal and family decision. Subjective Date of service: 07/14/20 Interval history: Patient seen and examined He is resting on bed now, communicative Patient wants to go home Objective - Exam Narrative Exam: General appearance: Present: lethargic - EENT Eyes: Present: PERRL - Neck Neck: Present: supple - Respiratory Respiratory: right: other (coarse breath sounds) - Cardiovascular Heart Sounds: Present: S1 & S2 - Extremities Extremities: No edema - Abdominal General gastrointestinal: soft, non-tender, non-distended, normal bowel sounds - Psychiatric Psychiatric: flat mood/affect - Neurologic Neurologic: CNII-XII intact,moves all extremities - Constitutional Vitals: Vital Signs - 12hr 07/14/20 07/14/20 07/14/20 04:12 05:51 07:24 Temperature 98 F 97.4 F L Pulse Rate 112 H 85 Respiratory 18 18 Rate Blood Pressure 92/51 Blood Pressure 106/57 [Right] O2 Sat by Pulse 96 97 Oximetry 07/14/20 07/14/20 10:00 12:40 Temperature 98.1 F Pulse Rate 90 93 H Respiratory 20 Rate Blood Pressure 99/46 Blood Pressure [Right] O2 Sat by Pulse 100 95 Oximetry - Labs CBC & Chem 7: 07/11/20 16:54 07/11/20 00:30 Labs: Abnormal lab results 07/13/20 07/13/20 07/14/20 Range/Units 16:15 20:50 09:19 POC Glucose 327 H 402 H 249 H (70-105)
--- NOTE | 2020-07-14 16:27 | Progress Note ---
Assessment and Plan Cultures: 07/07/2020 blood culture: no growth A/P: 74-year-old male with hypertension, hypothyroidism, rheumatoid arthritis, schizophrenia initially admitted to inpatient psychiatry was transferred to the medical floor due to shortness of breath and hypoxia: #Neutrophilic leukocytosis: Source unclear. No fever. Mild procalcitonin elevation. Not explained by his low-dose steroid use. Unable to get CT chest, abdomen and pelvis because patient refused. Completed empiric abx course for pneumonia. #Acute hypoxic respiratory failure: No evidence of obvious pneumonia on chest x- ray but was hypoxic. Resolved. #Rheumatoid arthritis: Immunocompromised. On weekly methotrexate and low-dose prednisone. #Acute encephalopathy: ?meds related. Resolved. Recs: remains stable, off antibiotics. D/W Dr. Raza. ID will sign off. Please call with questions. Jeremi Martinez MD, FACP [facility] O: [phone] F: [phone] Subjective Date of service: 07/14/20 Interval history: No fever. Feels well. Denies any complaints. Objective - Exam Narrative Exam: Physical Exam: Constitutional: awake, alert, no distress Head, Ears, Nose: Normocephalic, atraumatic. External ears, nose normal Eyes: Conjunctivae/corneas clear. No icterus. No ptosis. Neck: Supple, no meningeal signs Cardiovascular: S1, S2 normal. Respiratory: clear to auscultation bilaterally GI: Soft, non-tender; bowel sounds normal. No peritoneal signs Musculoskeletal: No pedal edema, no cyanosis. Skin: No rash or abscess Hem/Lymphatic: No palpable cervical or supraclavicular nodes. No lymphangitis Psych: no agitation, flat affect Neurological: awake, alert, answering questions. - Constitutional Vitals: Vital Signs Temp Pulse Resp BP Pulse Ox 98.1 F 93 H 20 99/46 95 07/14/20 12:40 07/14/20 12:40 07/14/20 12:40 07/14/20 12:40 07/14/20 12:40 Temperature -Last 24 Hours Temperature 98.1 F Temperature 97.4 F Temperature 98 F Temperature 98.3 F Temperature 98.3 F Temperature 99.0 F - Labs CBC & Chem 7: 07/11/20 16:54 07/11/20 00:30 Labs: Abnormal lab results 07/13/20 07/14/20 07/14/20 Range/Units 20:50 09:19 15:57 POC Glucose 402 H 249 H 59 L (70-105) 07/14/20 Range/Units 16:29 POC Glucose 66 L (70-105)
[2020-07-14] MEDS: SODIUM CHLORIDE 1 GM TAB PO SCH ×2 (16:45→22:02)
[2020-07-14] MEDS: traZODone 50 MG TAB PO SCH (22:02)
[2020-07-14] MEDS: INSULIN GLARGINE 100 UNITS/ML SUB-Q SCH (22:30)
[2020-07-15] MEDS: INSULIN GLARGINE 100 UNITS/ML SUB-Q SCH ×2 (01:29→22:20)
[2020-07-15] MEDS: LEVOTHYROXINE 112 MCG TAB PO SCH (06:40)
[2020-07-15] MEDS: DIVALPROEX DR 250 MG TAB PO SCH ×2 (09:20→22:13)
[2020-07-15] MEDS: SODIUM CHLORIDE 1 GM TAB PO SCH ×2 (09:20→22:18)
[2020-07-15] MEDS: FUROSEMIDE 20 MG TAB PO SCH (09:21)
[2020-07-15] MEDS: INSULIN LISPRO 100 UNIT/ML VIAL 3 mL SUB-Q SCH ×3 (09:21→16:18)
[2020-07-15] MEDS: PANTOPRAZOLE 40 MG TAB PO SCH ×2 (09:21→16:21)
--- NOTE | 2020-07-15 10:32 | Progress Note ---
<THADANGIETIM - Last Filed: 07/15/20 10:30> Assessment and Plan Acute hypoxic respiratory failure VQ scan reports no perfusion abnormalities Leukocytosis Hypertension Diabetes Schizophrenia An echocardiogram showed left ventricular systolic function at the lower limits of normal with ejection fraction 45 to 50%. Conservative cardiac management. We will follow intermittently. Subjective Date of service: 07/15/20 Interval history: Patient is resting in bed comfortably and has no cardiac complaints. PT is at the bedside. Objective Vital Signs Temp Pulse Pulse Resp BP Pulse Ox 07/15/20 03:14 98.0 F 104 H 18 122/64 94 07/14/20 23:31 98.0 F 102 H 18 93/52 98 07/14/20 22:30 100 H 16 95 07/14/20 19:41 99 H 07/14/20 19:16 99.0 F 100 H 18 109/61 95 07/14/20 17:06 97.9 F 97 H 20 118/62 98 07/14/20 12:40 98.1 F 93 H 20 99/46 95 07/14/20 11:00 102 H - Physical Examination General: No Apparent Distress HEENT: Positive: PERRL Neck: Positive: trachea midline Cardiac: Positive: Reg Rate and Rhythm Lungs: Positive: Decreased Breath Sounds Neuro: Positive: Weakness Extremities: Absent: edema <ALISA HERNANDEZ - Last Filed: 07/16/20 21:05> Subjective Interval history: I SAW THIS PT & AGREE WITH THE Dx & Tx PLAN Objective Vital Signs Temp Pulse Pulse Pulse Resp BP BP 07/16/20 19:49 98.7 F 109 H 17 91/56 07/16/20 15:07 98.9 F 56 L 16 122/57 07/16/20 11:48 98.9 F 95 H 16 132/63 07/16/20 09:04 98.6 F 18 07/16/20 09:03 98.6 F 71 18 116/65 07/16/20 06:06 97 H 20 131/66 07/16/20 01:00 98.8 F 102 H 16 94/56 07/15/20 22:40 100 H 102 H 18 07/15/20 22:15 98.8 F 86 20 93/54 Pulse Ox 07/16/20 19:49 77 L 07/16/20 15:07 86 07/16/20 11:48 93 10/08/20 09:04 07/16/20 09:03 95 07/16/20 06:06 97 07/16/20 01:00 91 07/15/20 22:40 92 07/15/20 22:15 93
--- NOTE | 2020-07-15 12:47 | XRay Report ---
CHEST 1 VIEW INDICATION / CLINICAL INFORMATION: pna. COMPARISON: 07/08/2020 FINDINGS: SUPPORT DEVICES: None. HEART / MEDIASTINUM: Stable. LUNGS / PLEURA: Persistently low lung volumes without significant pleural or parenchymal abnormality. No pneumothorax. ADDITIONAL FINDINGS: No significant additional findings. IMPRESSION: 1. No acute findings or significant interval change. Signer Name: Benito Rogers MD Signed: 07/15/2020 12:42 PM Workstation Name: [id number]
--- NOTE | 2020-07-15 13:36 | Progress Note ---
Assessment and Plan --Acute CHFrEF exacerbation s/p lasix iv, patient now appears compensated consulted cardiology, Echo with 45% EF monitor ins/ox, daily wt ---Acute respiratory failure with hypoxia Likely from PNA vs CHF exacerbation Continue oxygen supplementation 07/03. Chest xray shows scarring of the left lobe with no clear pneumonia or pulmonary edema NM lung scan -ve for PE. Echo with 45% EF ---Poorly controlled Diabetes mellitus type 2 Continue sliding scale insulin, Lantus at night HbA1c 9.5 Endocrinology follow up in the office after discharge ---Leucocytosis, trended down Possibly from steroids but procalcitonin is elevated and he is hypoxic Completed 5 days of empirical antibiotics with Rocephin, off steroid consulted ID for further management ordered CT chest, abdomen and pelvis with IV contrast to evaluate cause of leucocytosis - but patient refused ---Hyponatremia Trend, Osmolality serum and urine ordered --Sinus Tachycardia likely from respiratory failure. cont to follow ---Hypothyroidism (acquired) cont synthroid , normal TSH and T4 ---Upper GI bleed Has dark tarry stool as per RN cont PPI Stool +ve guaiac. GI consulted -patient does not want any endoscopy at this time ---Rheumatoid arthritis Methotrexate weekly, off steroid for now ---HTN (hypertension) Lisinopril 5 mg daily ---Schizophrenia, paranoid type Management as per psych --dementia with behavioral changes, continue supportive care --Diarrhea, on Imodium, patient already on Flagyl DVT prophylaxis - heparin Full code Brief History 76 year old with a medical history of HTN, Hypothyroidism, RA, Schizophrenia who is being admitted from psych unit with complaints of shortness of breath. He was initially admitted to the psych unit due to his psych condition but he developed shortness of breath and then admitted to medicine floor. 07/04. Evaluated patient in the psych unit today and he was on nasal cannula. He had no complaints. Decision was made to admit to the hospital as he has tachycardia and hypoxia. Work up has commenced. His chest xray performed on 07/03 shows no clear infiltrate but his labs shows leukocytosis with a left shift,elevated ddimer and probnp. Procalcitonin was positive and he was started on antibiotics. CTA chest ordered. 07/05. Patient seen and examined at bedside this morning. He has no complaints. He still on nasal cannula 2 L with sats in the 90s. PT/OT ordered. Still waiting for CTA chest to be performed. His labs this morning shows hyponatremia and EUSEBIA. Hold CTA chest - will get NM lung perfusion scan instead. 07/06. NM lung scan is negative for PE. Labs shows hyponatremia and hypokalemia. Hb drop noted. RN reports dark tarry stool. Will hold heparin for now. Stool guaiac ordered. GI eval 07/07: GI recommended EGD and colonoscopy but patient wants to do endoscopy as outpatient. PT recommended home health. Will consult ID for antibiotic recommendation as patient continues to have persistent leukocytosis. Wean off from O2 as tolerated. Will assess for home O2 requirement. 07/08: code med called this am as patient was hypoxic and lethargic. started on iv lasix, consult cardiology 07/09: patient more clinically stable, white count tending down. refusing CT scan. discussed with and she stated that she is considering for placement for the patient 07/10; patient refused labs this morning. patient's wants patient to be admitted to in psych facility but Psych recommended no inpatient psychiatric admission necessary at this point and recommended outpatient follow-up. Will discuss with and case management about the discharge planning. If clinically remains stable overnight patient could be DC home with home health tomorrow. Per CM planning to appeal the discharge. 07/11: planned to d/c today. patient's planning to appeal the discharge. BP at low 90s. Will reduce the dose of Lasix, continue to monitor 07/12: Blood pressure remains low, will stop Lasix. Patient appears compensated now. Will consider IV fluid if BP remains low. Patient discharge is being hold as planned for appeal. 07/13: Patient's appealed for the discharge. manager voice working on discharge planning. 07/14: discharge pending on appeal and family decision. 07/15: family decided for SNF placement - CM working on placement Subjective Date of service: 07/15/20 Interval history: Patient seen and examined He is resting on bed now, communicative Patient wants to go home Family now want SNF placement Objective - Exam Narrative Exam: General appearance: Present: lethargic - EENT Eyes: Present: PERRL - Neck Neck: Present: supple - Respiratory Respiratory: right: other (coarse breath sounds) - Cardiovascular Heart Sounds: Present: S1 & S2 - Extremities Extremities: No edema - Abdominal General gastrointestinal: soft, non-tender, non-distended, normal bowel sounds - Psychiatric Psychiatric: flat mood/affect - Neurologic Neurologic: CNII-XII intact,moves all extremities - Constitutional Vitals: Vital Signs - 12hr 07/15/20 07/15/20 07/15/20 03:14 10:00 12:00 Temperature 98.0 F 99.1 F Pulse Rate 104 H 106 H 110 H Respiratory 18 21 Rate Blood Pressure 122/64 Blood Pressure 100/61 [Left] O2 Sat by Pulse 94 98 Oximetry - Labs CBC & Chem 7: 07/11/20 16:54 07/11/20 00:30 Labs: Abnormal lab results 07/14/20 07/14/20 07/14/20 Range/Units 15:57 16:29 17:06 POC Glucose 59 L 66 L 119 H (70-105) 07/15/20 Range/Units 00:58 POC Glucose 283 H (70-105)
[2020-07-15] MEDS: traZODone 50 MG TAB PO SCH (22:13)
[2020-07-16] MEDS: LEVOTHYROXINE 112 MCG TAB PO SCH (06:02)
[2020-07-16] MEDS: INSULIN LISPRO 100 UNIT/ML VIAL 3 mL SUB-Q SCH ×3 (08:34→16:35)
[2020-07-16] MEDS: PANTOPRAZOLE 40 MG TAB PO SCH ×2 (08:36→16:36)
--- NOTE | 2020-07-16 11:00 | Progress Note ---
Assessment and Plan Assessment and plan: --Acute CHFrEF exacerbation s/p lasix iv, patient now appears compensated consulted cardiology, Echo with 45% EF monitor ins/ox, daily wt ---Acute respiratory failure with hypoxia Likely from PNA vs CHF exacerbation Continue oxygen supplementation 07/03. Chest xray shows scarring of the left lobe with no clear pneumonia or pulmonary edema NM lung scan -ve for PE. Echo with 45% EF ---Poorly controlled Diabetes mellitus type 2 Continue sliding scale insulin, Lantus at night HbA1c 9.5 Endocrinology follow up in the office after discharge ---Leucocytosis, trended down Possibly from steroids but procalcitonin is elevated and he is hypoxic Completed 5 days of empirical antibiotics with Rocephin, off steroid consulted ID for further management ordered CT chest, abdomen and pelvis with IV contrast to evaluate cause of leucocytosis - but patient refused ---Hyponatremia Trend, Osmolality serum and urine ordered --Sinus Tachycardia likely from respiratory failure. cont to follow ---Hypothyroidism (acquired) cont synthroid , normal TSH and T4 ---Upper GI bleed Has dark tarry stool as per RN cont PPI Stool +ve guaiac. GI consulted -patient does not want any endoscopy at this time ---Rheumatoid arthritis Methotrexate weekly, off steroid for now ---HTN (hypertension) Lisinopril 5 mg daily ---Schizophrenia, paranoid type Management as per psych --dementia with behavioral changes, continue supportive care --Diarrhea, on Imodium, patient already on Flagyl DVT prophylaxis - heparin Closely monitor the patient and adjust the management as needed Plan of care reviewed with the patient's nurse and case management 07/11: planned to d/c today. patient's planning to appeal the discharge. BP at low 90s. Will reduce the dose of Lasix, continue to monitor 07/12: Blood pressure remains low, will stop Lasix. Patient appears compensated now. Will consider IV fluid if BP remains low. Patient discharge is being hold as planned for appeal. 07/13: Patient's appealed for the discharge. manager trade marketing working on discharge planning. 07/14: discharge pending on appeal and family decision. 07/15: family decided for SNF placement - CM working on placement 07/16; patient is medically stable for discharge awaiting SNF placement level 2 History Interval history: I have seen and examined the patient at the bedside Patient's chart and medications reviewed Patient has no new complaints Awaiting placement Vital signs noted Hospitalist Physical - Constitutional Vitals: Temp Pulse Resp BP Pulse Ox 98.6 F 71 18 116/65 95 07/16/20 09:04 07/16/20 09:03 07/16/20 09:04 07/16/20 09:03 07/16/20 09:03 General appearance: Present: no acute distress, well-nourished - EENT Eyes: Present: PERRL, EOM intact - Neck Neck: Present: supple, normal ROM - Respiratory Respiratory effort: normal Respiratory: bilateral: diminished, rhonchi, negative: rales, wheezing - Cardiovascular Rhythm: regular Heart Sounds: Present: S1 & S2 - Extremities Extremities: no ischemia, No edema - Abdominal General gastrointestinal: soft, non-tender, non-distended, normal bowel sounds - Integumentary Integumentary: Present: clear, warm - Psychiatric Psychiatric: cooperative - Neurologic Neurologic: moves all extremities Results - Labs CBC & Chem 7: 07/11/20 16:54 07/11/20 00:30 Labs: Laboratory Last Values WBC 13.5 K/mm3 (4.5-11.0) H 07/11/20 16:54 RBC 2.64 M/mm3 (3.65-5.03) L 07/11/20 16:54 Hgb 9.4 gm/dl (11.8-15.2) L 07/11/20 16:54 Hct 27.1 % (35.5-45.6) L 07/11/20 16:54 MCV 103 fl (84-94) H 07/11/20 16:54 MCH 36 pg (28-32) H 07/11/20 16:54 MCHC 35 % (32-34) H 07/11/20 16:54 RDW 15.3 % (13.2-15.2) H 07/11/20 16:54 Plt Count 254 K/mm3 (140-440) 07/11/20 16:54 Lymph % (Auto) 17.8 % (13.4-35.0) 07/09/20 00:26 Garvin % (Auto) Material Requirements Worker 07/11/20 00:30 Eos % (Auto) 0.5 % (0.0-4.3) 07/09/20 00:26 Baso % (Auto) 0.3 % (0.0-1.8) 07/09/20 00:26 Lymph # (Auto) 2.6 K/mm3 (1.2-5.4) 07/09/20 00:26 Garvin # (Auto) 2.2 K/mm3 (0.0-0.8) H 07/09/20 00:26 Eos # (Auto) 0.1 K/mm3 (0.0-0.4) 07/09/20 00: Baso # (Auto) 0.0 K/mm3 (0.0-0.1) 07/09/20 00:26 Add Manual Diff Complete 07/11/20 00:30 Total Counted 100 07/11/20 00:30 Seg Neutrophils % 66.3 % (40.0-70.0) 07/09/20 00:26 Seg Neuts % (Manual) 56.0 % (40.0-70.0) 07/11/20 00:30 Band Neutrophils % 0 % 07/11/20 00:30 Lymphocytes % (Manual) 30.0 % (13.4-35.0) 07/11/20 00:30 Reactive Lymphs % (Man) 0 % 07/11/20 00:30 Monocytes % (Manual) 10.0 % (0.0-7.3) H 07/11/20 00:30 Eosinophils % (Manual) 4.0 % (0.0-4.3) 07/11/20 00:30 Basophils % (Manual) 0 % (0.0-1.8) 07/11/20 00:30 Metamyelocytes % 0 % 07/11/20 00:30 Myelocytes % 0 % 07/11/20 00:30 Promyelocytes % 0 % 07/11/20 00:30 Blast Cells % 0 % 07/11/20 00:30 Nucleated RBC % Not Reportable 07/11/20 00:30 Seg Neutrophils # 9.6 K/mm3 (1.8-7.7) H 07/09/20 00:26 Seg Neutrophils # Man 6.4 K/mm3 (1.8-7.7) 07/11/20 00:30 Band Neutrophils # 0.0 K/mm3 07/11/20 00:30 Lymphocytes # (Manual) 3.5 K/mm3 (1.2-5.4) 07/11/20 00:30 Abs React Lymphs (Man) 0.0 K/mm3 07/11/20 00:30 Monocytes # (Manual) 1.2 K/mm3 (0.0-0.8) H 07/11/20 00:30 Eosinophils # (Manual) 0.5 K/mm3 (0.0-0.4) H 07/11/20 00:30 Basophils # (Manual) 0.0 K/mm3 (0.0-0.1) 07/11/20 00:30 Metamyelocytes # 0.0 K/mm3 07/11/20 00:30 Myelocytes # 0.0 K/mm3 07/11/20 00:30 Promyelocytes # 0.0 K/mm3 07/11/20 00:30 Blast Cells # 0.0 K/mm3 07/11/20 00:30 WBC Morphology Not Reportable 07/11/20 00:30 Hypersegmented Neuts Not Reportable 07/11/20 00:30 Hyposegmented Neuts Not Reportable 07/11/20 00:30 Hypogranular Neuts Not Reportable 07/11/20 00:30 Smudge Cells Not Reportable 07/11/20 00:30 Toxic Granulation Not Reportable 07/11/20 00:30 Toxic Vacuolation Not Reportable 07/11/20 00:30 Dohle Bodies Not Reportable 07/11/20 00:30 Pelger-Huet Anomaly Not Reportable 07/11/20 00:30 Faiza Rods Not Reportable 07/11/20 00:30 Platelet Estimate Consistent w auto 07/11/20 00:30 Clumped Platelets Not Reportable 07/11/20 00:30 Plt Clumps, EDTA Not Reportable 07/11/20 00:30 Large Platelets Not Reportable 07/11/20 00:30 Giant Platelets Not Reportable 07/11/20 00:30 Platelet Satelliting Not Reportable 07/11/20 00:30 Plt Morphology Comment Not Reportable 07/11/20 00:30 RBC Morphology Not Reportable 07/11/20 00:30 Dimorphic RBCs Not Reportable 07/11/20 00:30 Polychromasia Not Reportable 07/11/20 00:30 Hypochromasia Not Reportable 07/11/20 00:30 Poikilocytosis Not Reportable 07/11/20 00:30 Anisocytosis Few 07/11/20 00:30 Microcytosis Not Reportable 07/11/20 00:30 Macrocytosis Not Reportable 07/11/20 00:30 Spherocytes Not Reportable 07/11/20 00:30 Pappenheimer Bodies Not Reportable 07/11/20 00:30 Sickle Cells Not Reportable 07/11/20 00:30 Target Cells Not Reportable 07/11/20 00:30 Tear Drop Cells Not Reportable 07/11/20 00:30 Ovalocytes Not Reportable 07/11/20 00:30 Helmet Cells Not Reportable 07/11/20 00:30 Malhotra-Biola Bodies Not Reportable 07/11/20 00:30 Gary Rings Not Reportable 07/11/20 00:30 Blakeslee Cells Few 07/11/20 00:30 Bite Cells Not Reportable 07/11/20 00:30 Crenated Cell Not Reportable 07/11/20 00:30 Elliptocytes Not Reportable 07/11/20 00:30 Acanthocytes (Spur) Not Reportable 07/11/20 00:30 Rouleaux Not Reportable 07/11/20 00:30 Hemoglobin C Crystals Not Reportable 07/11/20 00:30 Schistocytes Not Reportable 07/11/20 00:30 Malaria parasites Not Reportable 07/11/20 00:30 Jakob Bodies Not Reportable 07/11/20 00:30 Hem Pathologist Commnt No 07/11/20 00:30 PT 14.8 Sec. (12.2-14.9) 07/05/20 00:48 INR 1.15 (0.87-1.13) H 07/05/20 00:48 ABG pH 7.392 (7.320-7.450) 07/05/20 20:45 POC ABG pCO2 32.1 mmHg (32.0-48.0) 07/05/20 20:45 POC ABG pO2 107.4 mmHg (83-108) 07/05/20 20:45 POC ABG HCO3 19.1 07/05/20 20:45 POC ABG Base Excess -4.9 07/05/20 20:45 ABG Hemoglobin 12.7 (12.0-17.5) 07/05/20 20:45 ABG Oxyhemoglobin 97.2 (94-98) 07/05/20 20:45 ABG Methemoglobin 0.3 (0.0-1.5) 07/05/20 20:45 Carboxyhemoglobin 0.4 (0.5-1.5) L 07/05/20 20:45 FiO2 40 07/05/20 20:45 Sodium 134 mmol/L (137-145) L 07/11/20 00:30 Potassium 4.0 mmol/L (3.6-5.0) D 07/11/20 00:30 Chloride 94.2 mmol/L (98-107) L 07/11/20 00:30 Carbon Dioxide 24 mmol/L (22-30) 07/11/20 00:30 Anion Gap 20 mmol/L 07/11/20 00:30 BUN 22 mg/dL (9-20) H 07/11/20 00:30 Creatinine 0.9 mg/dL (0.8-1.3) 07/11/20 00:30 Estimated GFR > 60 ml/min 07/11/20 00:30 BUN/Creatinine Ratio 24 % 07/11/20 00:30 Glucose 441 mg/dL (75-100) H 07/11/20 00:30 POC Glucose 197 (70-105) H 07/16/20 09:18 Hemoglobin A1c 8.6 % (4-6) H 07/12/20 06:44 Osmolality 291 Mosm/kg 07/06/20 13:47 Calcium 8.5 mg/dL (8.4-10.2) 07/11/20 00:30 Magnesium 1.70 mg/dL (1.7-2.3) 07/09/20 10:27 Total Bilirubin 0.30 mg/dL (0.1-1.2) 07/09/20 00:26 AST 23 units/L (5-40) 07/09/20 00:26 ALT 22 units/L (7-56) 07/09/20 00:26 Alkaline Phosphatase 63 units/L (35-129) 07/09/20 00:26 NT-Pro-B Natriuret Pep 2870 pg/mL (0-900) H 07/05/20 00:48 Total Protein 5.6 g/dL (6.3-8.2) L 10/01/20 00:26 Albumin 3.6 g/dL (3.9-5) L 07/09/20 00:26 Albumin/Globulin Ratio 1.8 % 07/09/20 00:26 Vitamin B12 1460 pg/mL (211-911) H 07/06/20 01:00 Folate 12.59 ng/mL (7.3-26.0) 07/06/20 01:00 Procalcitonin 0.17 ng/mL (<0.15) 07/08/20 05:47 TSH 0.375 mlU/mL (0.270-4.200) 07/08/20 20:26 Free T4 0.80 ng/dL (0.76-1.46) 07/08/20 20:26 Urine Eosinophils None seen (None Seen) 07/05/20 14:15 Urine Osmolality 591 Mosm/kg 07/06/20 12:41 Urine Creatinine 54.8 mg/dL (0.1-20.0) H 07/05/20 14:15 Protein/Creatinin Ratio 0.35 07/05/20 14:15 Urine Total Protein 19 mg/dL (5-11.8) H 07/05/20 14:15 - Diagnostic Impressions Diagnostic Impressions: Echocardiogram 07/04/20 16:16 Transthoracic Echocardiogram Indication: CHF BP: 123/69 Conclusions *THE PT IS TACHYCARDIC *EF 45-50% *MILD LVH *DIASTOLIC FUNCTION COULD NOT BE DETERMINED *AORTIC VALVE: MINIMAL STENOSIS MILD AI *R. HEART STRUCTURES NOT SEEN WELL *CONSIDER AMEENA Findings Left Ventricle: The left ventricular chamber size is normal. Mild concentric left ventricular hypertrophy is observed. There is diffuse global hypokinesis of the left ventricle. The estimated ejection fraction is 45-50%. Left Atrium: The left atrial chamber size is normal. Right Ventricle: The right ventricular cavity size is normal. The right ventricular global systolic function is normal. Right Atrium: The right atrial cavity size is normal. Aortic Valve: The aortic valve is trileaflet. There is mild thickening of the left coronary cusp. There is mild thickening of the right coronary cusp. There is mild thickening of the non coronary cusp. Systolic excursion of the aortic valve cusps is reduced. Moderate aortic cusp sclerosis is present. There is mild aortic regurgitation. There is mild aortic stenosis. Mitral Valve: The mitral valve leaflets appear normal. There is mild mitral regurgitation. Tricuspid Valve: The tricuspid valve leaflets are normal. There is trace tricuspid regurgitation. Pulmonic Valve: The pulmonic valve appears normal. There is trace pulmonic regurgitation. Pericardium: The pericardium appears normal. Aorta: There is no dilatation of the aortic root. Measurements Chambers 2D Name Value Normal Range IVSd (2D) 1.12 cm (0.6 - 1.1) LVPWd (2D) 1.11 cm (0.6 - 1.1) LVIDd (2D) 4.72 cm (3.7 - 5.6) LVIDs (2D) 4.15 cm (2 - 3.8) LV FS (2D) 12.13 % - EF Teichholz (2D) 26.22 % - Ao root diameter (2D) 3.58 cm (2 - 3.7) Volumes/Mass Name Value Normal Range LA ESV SP 4CH (A/L) 23.85 ml - LA ESV SP 2CH (A/L) 20.96 ml - LA ESV BP (A/L) 25.83 ml - LA ESV SP 4CH (MOD) 21.59 ml - LA ESV SP 2CH (MOD) 20.26 ml - LV EDV SP 4CH (MOD) 87.92 ml - LV ESV SP 4CH (MOD) 37.48 ml - EF SP 4CH (MOD) 57.37 % - LV EDV SP 2CH (MOD) 25.91 ml - LV ESV SP 2CH (MOD) 17.03 ml - EF SP 2CH (MOD) 34.27 % - LV EDV BP 54.13 ml - LV ESV BP 27.72 ml - BP EF (MOD) 48.79 % - Aortic Valve Name Value Normal Range AV Vmax 1.16 m/sec - AV VTI 16.08 cm - AV peak gradient 5.34 mmHg - AV mean gradient 2.54 mmHg - LVOT diameter 2.41 cm - LVOT Vmax 1.1 m/sec - LVOT VTI 13.43 cm - LVOT peak gradient 4.8 mmHg - LVOT mean gradient 1.8 mmHg - SV LVOT 61.45 ml - SYED (continuity Vmax) 4.34 cm2 - SYED (continuity VTI) 3.82 cm2 - AR PHT 359.99 msec - AR peak gradient 42.29 mmHg - Pulmonic Valve/Qp:Qs Name Value Normal Range PV Vmax 1.01 m/sec - PV peak gradient 4.07 mmHg - MS end-diastolic Vmax 1.36 m/sec - PV acceleration time 110.37 msec - Hollis/IV: Voiding Method Condom Catheter IV Catheter Type [Left Forearm INT / Saline Lock ] IV Catheter Type [Right Hand] Peripheral IV IV Catheter Type [Right INT / Saline Lock Antecubital] Active Medications - Current Medications Current Medications: Generic Name Dose Route Start Last Admin Trade Name Freq PRN Reason Stop Dose Admin Acetaminophen 650 mg 07/04/20 16:08 07/14/20 05:51 Tylenol PO 650 mg Q4H PRN Administration Pain MILD(1-3)/Fever >100.5/DUMONT Dextrose 50 ml 07/05/20 11:24 D50w (25gm) Syringe IV Q30MIN PRN Hypoglycemia Protocol Diphenoxylate HCl/Atropine 1 tab 07/12/20 15:48 07/12/20 15:54 Lomotil PO 1 tab Q6H PRN Administration Diarrhea Divalproex Sodium 250 mg 07/05/20 10:00 07/15/20 22:[address] PO 250 mg BID NYLA Administration Folic Acid 1 mg 07/16/20 10:00 Folvite PO DAILY NYLA Furosemide 20 mg 07/12/20 10:00 07/15/20 09:21 Lasix PO 20 mg DAILY NYLA Administration Insulin Glargine 35 units 07/11/20 22:00 07/15/20 22:20 Lantus SUB-Q 35 units QHS NYLA Administration Insulin Human Lispro 15 unit 07/14/20 11:30 07/15/20 16:18 Humalog SUB-Q Not Given [facility] Protocol Levothyroxine Sodium 112 mcg 07/07/20 10:00 07/16/20 06:02 Synthroid PO 112 mcg DAILY@0600 NYLA Administration Olanzapine 7.5 mg 07/05/20 10:00 07/15/20 09:20 Zyprexa PO 7.5 mg QDAY NYLA Administration Ondansetron HCl 4 mg 07/04/20 16:08 07/05/20 10:38 Zofran IV 4 mg Q8H PRN Administration Nausea And Vomiting Pantoprazole Sodium 40 mg 07/08/20 11:00 07/15/20 16:21 Protonix PO 40 mg BIDAC NYLA Administration Sodium Chloride 10 ml 07/04/20 22:00 07/15/20 22:21 Sodium Chloride Flush Syringe 10 Ml IV 10 ml BID NYLA Administration Sodium Chloride 10 ml 07/04/20 16:08 07/09/20 04:01 Sodium Chloride Flush Syringe 10 Ml IV 10 ml PRN PRN Administration LINE FLUSH Sodium Chloride 1 gm 07/06/20 16:47 07/15/20 22:18 Sodium Chloride PO 1 gm BID NYLA Administration Trazodone HCl 50 mg 07/05/20 22:00 07/15/20 22:13 Desyrel PO 50 mg QHS NYLA Administration Nutrition/Malnutrition Assess - Dietary Evaluation Nutrition/Malnutrition Findings: Nutrition Notes Start: 07/06/20 10:29 Freq: Status: Active Protocol: Document 07/09/20 12:52 AL (Rec: 07/09/20 13:01 AL [id number]) Co-Sign 07/09/20 12:52 LM Nutrition Notes Initial or Follow up Brief Note Current Diagnosis Diabetes,Hypertension Other Pertinent Diagnosis Acute resp failure, tachycardia, RA, paranoid schizophrenia Current Diet Consistent CHO Clio Body Weight (kg) 0 Weight Status Appropriate Subjective/Other Information F/U for intakes and ONS tolerance. Pt reports having a good appetite and eating 100% of breakfast. Pt reports not drinking supplement despite liking it. Nutrition Intervention Follow-Up By: 07/16/20 Additional Comments F/U for stable intakes and ONS tolerance
[2020-07-16] MEDS: DIVALPROEX DR 250 MG TAB PO SCH ×2 (12:36→22:20)
[2020-07-16] MEDS: FOLIC ACID 1 MG TAB PO SCH (13:36)
[2020-07-16] MEDS: FUROSEMIDE 20 MG TAB PO SCH (13:37)
[2020-07-16] MEDS: DIPHENOXYLATE/ATROPINE TAB PO PRN (16:35)
[2020-07-16] MEDS: SODIUM CHLORIDE 1 GM TAB PO SCH ×2 (16:37→22:20)
[2020-07-16] MEDS: INSULIN GLARGINE 100 UNITS/ML SUB-Q SCH (22:20)
[2020-07-16] MEDS: traZODone 50 MG TAB PO SCH (22:20)
[2020-07-17] MEDS: LEVOTHYROXINE 112 MCG TAB PO SCH (05:39)
[2020-07-17] MEDS: INSULIN LISPRO 100 UNIT/ML VIAL 3 mL SUB-Q SCH ×3 (07:05→17:59)
[2020-07-17] MEDS: DIVALPROEX DR 250 MG TAB PO SCH ×2 (09:22→21:33)
[2020-07-17] MEDS: FOLIC ACID 1 MG TAB PO SCH (09:22)
[2020-07-17] MEDS: PANTOPRAZOLE 40 MG TAB PO SCH ×2 (09:22→15:35)
[2020-07-17] MEDS: FUROSEMIDE 20 MG TAB PO SCH (09:22)
[2020-07-17] MEDS: SODIUM CHLORIDE 1 GM TAB PO SCH ×2 (09:22→21:35)
[2020-07-17] MEDS: ACETAMINOPHEN 325 MG TAB PO PRN (15:35)
--- NOTE | 2020-07-17 18:37 | Progress Note ---
Assessment and Plan Assessment and plan: --Acute CHFrEF exacerbation s/p lasix iv, patient now appears compensated consulted cardiology, Echo with 45% EF monitor ins/ox, daily wt ---Acute respiratory failure with hypoxia Likely from PNA vs CHF exacerbation Continue oxygen supplementation 07/03. Chest xray shows scarring of the left lobe with no clear pneumonia or pulmonary edema NM lung scan -ve for PE. Echo with 45% EF ---Poorly controlled Diabetes mellitus type 2 Continue sliding scale insulin, Lantus at night HbA1c 9.5 Endocrinology follow up in the office after discharge ---Leucocytosis, trended down Possibly from steroids but procalcitonin is elevated and he is hypoxic Completed 5 days of empirical antibiotics with Rocephin, off steroid consulted ID for further management ordered CT chest, abdomen and pelvis with IV contrast to evaluate cause of leucocytosis - but patient refused ---Hyponatremia Trend, Osmolality serum and urine ordered --Sinus Tachycardia likely from respiratory failure. cont to follow ---Hypothyroidism (acquired) cont synthroid , normal TSH and T4 ---Upper GI bleed Has dark tarry stool as per RN cont PPI Stool +ve guaiac. GI consulted -patient does not want any endoscopy at this time ---Rheumatoid arthritis Methotrexate weekly, off steroid for now ---HTN (hypertension) Lisinopril 5 mg daily ---Schizophrenia, paranoid type Management as per psych --dementia with behavioral changes, continue supportive care --Diarrhea, on Imodium, patient already on Flagyl DVT prophylaxis - heparin Closely monitor the patient and adjust the management as needed Plan of care reviewed with the patient's nurse and case management 07/11: planned to d/c today. patient's planning to appeal the discharge. BP at low 90s. Will reduce the dose of Lasix, continue to monitor 07/12: Blood pressure remains low, will stop Lasix. Patient appears compensated now. Will consider IV fluid if BP remains low. Patient discharge is being hold as planned for appeal. 07/13: Patient's appealed for the discharge. supply manager working on discharge planning. 07/14: discharge pending on appeal and family decision. 07/15: family decided for SNF placement - CM working on placement 07/16; patient is medically stable for discharge awaiting SNF placement level 2 07/17; medically stable, awaiting placement History Interval history: I have seen and examined the patient at the bedside this morning Patient's chart and medications reviewed Patient feels better no new complaints Wants to go home Does not want placement Vital signs noted Hospitalist Physical - Constitutional Vitals: Temp Pulse Resp BP Pulse Ox 98.0 F 103 H 20 103/56 99 07/17/20 15:36 07/17/20 15:36 07/17/20 15:36 07/17/20 15:36 07/17/20 15:36 General appearance: Present: no acute distress, well-nourished, other (Agitated wants to go home) - EENT Eyes: Present: PERRL, EOM intact - Neck Neck: Present: supple, normal ROM - Respiratory Respiratory effort: normal Respiratory: bilateral: diminished, negative: rales, rhonchi, wheezing - Cardiovascular Rhythm: regular Heart Sounds: Present: S1 & S2 - Extremities Extremities: no ischemia, No edema - Abdominal General gastrointestinal: soft, non-tender, non-distended, normal bowel sounds - Integumentary Integumentary: Present: clear, warm - Psychiatric Psychiatric: appropriate mood/affect, agitated (At times) - Neurologic Neurologic: moves all extremities Results - Labs CBC & Chem 7: 07/11/20 16:54 07/16/20 21:50 Labs: Laboratory Last Values WBC 13.5 K/mm3 (4.5-11.0) H 07/11/20 16:54 RBC 2.64 M/mm3 (3.65-5.03) L 07/11/20 16:54 Hgb 9.4 gm/dl (11.8-15.2) L 07/11/20 16:54 Hct 27.1 % (35.5-45.6) L 07/11/20 16:54 MCV 103 fl (84-94) H 07/11/20 16:54 MCH 36 pg (28-32) H 07/11/20 16:54 MCHC 35 % (32-34) H 07/11/20 16:54 RDW 15.3 % (13.2-15.2) H 07/11/20 16:54 Plt Count 254 K/mm3 (140-440) 07/11/20 16:54 Lymph % (Auto) 17.8 % (13.4-35.0) 07/09/20 00:26 Divide % (Auto) [employer] 07/11/20 00:30 Eos % (Auto) 0.5 % (0.0-4.3) 07/09/20 00:26 Baso % (Auto) 0.3 % (0.0-1.8) 07/09/20 00:26 Lymph # (Auto) 2.6 K/mm3 (1.2-5.4) 07/09/20 00:26 Divide # (Auto) 2.2 K/mm3 (0.0-0.8) H 07/09/20 00:26 Eos # (Auto) 0.1 K/mm3 (0.0-0.4) 07/09/20 00:26 Baso # (Auto) 0.0 K/mm3 (0.0-0.1) 07/09/20 00:26 Add Manual Diff Complete 07/11/20 00:30 Total Counted 100 07/11/20 00:30 Seg Neutrophils % 66.3 % (40.0-70.0) 07/09/20 00:26 Seg Neuts % (Manual) 56.0 % (40.0-70.0) 07/11/20 00:30 Band Neutrophils % 0 % 07/11/20 00:30 Lymphocytes % (Manual) 30.0 % (13.4-35.0) 07/11/20 00:30 Reactive Lymphs % (Man) 0 % 07/11/20 00:30 Monocytes % (Manual) 10.0 % (0.0-7.3) H 07/11/20 00:30 Eosinophils % (Manual) 4.0 % (0.0-4.3) 07/11/20 00:30 Basophils % (Manual) 0 % (0.0-1.8) 07/11/20 00:30 Metamyelocytes % 0 % 07/11/20 00:30 Myelocytes % 0 % 07/11/20 00:30 Promyelocytes % 0 % 07/11/20 00:30 Blast Cells % 0 % 07/11/20 00:30 Nucleated RBC % Not Reportable 07/11/20 00:30 Seg Neutrophils # 9.6 K/mm3 (1.8-7.7) H 07/09/20 00:26 Seg Neutrophils # Man 6.4 K/mm3 (1.8-7.7) 07/11/20 00:30 Band Neutrophils # 0.0 K/mm3 07/11/20 00:30 Lymphocytes # (Manual) 3.5 K/mm3 (1.2-5.4) 07/11/20 00:30 Abs React Lymphs (Man) 0.0 K/mm3 07/11/20 00:30 Monocytes # (Manual) 1.2 K/mm3 (0.0-0.8) H 07/11/20 00:30 Eosinophils # (Manual) 0.5 K/mm3 (0.0-0.4) H 07/11/20 00:30 Basophils # (Manual) 0.0 K/mm3 (0.0-0.1) 07/11/20 00:30 Metamyelocytes # 0.0 K/mm3 07/11/20 00:30 Myelocytes # 0.0 K/mm3 07/11/20 00:30 Promyelocytes # 0.0 K/mm3 07/11/20 00:30 Blast Cells # 0.0 K/mm3 07/11/20 00:30 WBC Morphology Not Reportable 07/11/20 00:30 Hypersegmented Neuts Not Reportable 07/11/20 00:30 Hyposegmented Neuts Not Reportable 07/11/20 00:30 Hypogranular Neuts Not Reportable 07/11/20 00:30 Smudge Cells Not Reportable 07/11/20 00:30 Toxic Granulation Not Reportable 07/11/20 00:30 Toxic Vacuolation Not Reportable 07/11/20 00:30 Dohle Bodies Not Reportable 07/11/20 00:30 Pelger-Huet Anomaly Not Reportable 07/11/20 00:30 Faiza Rods Not Reportable 07/11/20 00:30 Platelet Estimate Consistent w auto 07/11/20 00:30 Clumped Platelets Not Reportable 07/11/20 00:30 Plt Clumps, EDTA Not Reportable 07/11/20 00:30 Large Platelets Not Reportable 07/11/20 00:30 Giant Platelets Not Reportable 07/11/20 00:30 Platelet Satelliting Not Reportable 07/11/20 00:30 Plt Morphology Comment Not Reportable 07/11/20 00:30 RBC Morphology Not Reportable 07/11/20 00:30 Dimorphic RBCs Not Reportable 07/11/20 00:30 Polychromasia Not Reportable 07/11/20 00:30 Hypochromasia Not Reportable 07/11/20 00:30 Poikilocytosis Not Reportable 07/11/20 00:30 Anisocytosis Few 07/11/20 00:30 Microcytosis Not Reportable 07/11/20 00:30 Macrocytosis Not Reportable 07/11/20 00:30 Spherocytes Not Reportable 07/11/20 00:30 Pappenheimer Bodies Not Reportable 07/11/20 00:30 Sickle Cells Not Reportable 07/11/20 00:30 Target Cells Not Reportable 07/11/20 00:30 Tear Drop Cells Not Reportable 07/11/20 00:30 Ovalocytes Not Reportable 07/11/20 00:30 Helmet Cells Not Reportable 07/11/20 00:30 [place] Bodies Not Reportable 07/11/20 00:30 [place] Rings Not Reportable 07/11/20 00:30 Femi Cells Few 07/11/20 00:30 Bite Cells Not Reportable 07/11/20 00:30 Crenated Cell Not Reportable 07/11/20 00:30 Elliptocytes Not Reportable 07/11/20 00:30 Acanthocytes (Spur) Not Reportable 07/11/20 00:30 Rouleaux Not Reportable 07/11/20 00:30 Hemoglobin C Crystals Not Reportable 07/11/20 00:30 Schistocytes Not Reportable 07/11/20 00:30 Malaria parasites Not Reportable 07/11/20 00:30 Jakob Bodies Not Reportable 07/11/20 00:30 Hem Pathologist Commnt No 07/11/20 00:30 PT 14.8 Sec. (12.2-14.9) 07/05/20 00:48 INR 1.15 (0.87-1.13) H 07/05/20 00:48 ABG pH 7.392 (7.320-7.450) 07/05/20 20:45 POC ABG pCO2 32.1 mmHg (32.0-48.0) 07/05/20 20:45 POC ABG pO2 107.4 mmHg (83-108) 07/05/20 20:45 POC ABG HCO3 19.1 07/05/20 20:45 POC ABG Base Excess -4.9 07/05/20 20:45 ABG Hemoglobin 12.7 (12.0-17.5) 07/05/20 20:45 ABG Oxyhemoglobin 97.2 (94-98) 07/05/20 20:45 ABG Methemoglobin 0.3 (0.0-1.5) 07/05/20 20:45 Carboxyhemoglobin 0.4 (0.5-1.5) L 07/05/20 20:45 FiO2 40 07/05/20 20:45 Sodium 134 mmol/L (137-145) L 07/11/20 00:30 Potassium 4.0 mmol/L (3.6-5.0) D 07/11/20 00:30 Chloride 94.2 mmol/L (98-107) L 07/11/20 00:30 Carbon Dioxide 24 mmol/L (22-30) 07/11/20 00:30 Anion Gap 20 mmol/L 07/11/20 00:30 BUN 22 mg/dL (9-20) H 07/11/20 00:30 Creatinine 0.9 mg/dL (0.8-1.3) 07/11/20 00:30 Estimated GFR > 60 ml/min 07/11/20 00:30 BUN/Creatinine Ratio 24 % 07/11/20 00:30 Glucose 37 mg/dL (75-100) L* 07/16/20 21:50 POC Glucose 272 (70-105) H 07/17/20 16:58 Hemoglobin A1c 8.6 % (4-6) H 07/12/20 06:44 Osmolality 291 Mosm/kg 07/06/20 13:47 Calcium 8.5 mg/dL (8.4-10.2) 07/11/20 00:30 Magnesium 1.70 mg/dL (1.7-2.3) 07/09/20 10:27 Total Bilirubin 0.30 mg/dL (0.1-1.2) 07/09/20 00:26 AST 23 units/L (5-40) 07/09/20 00:26 ALT 22 units/L (7-56) 07/09/20 00:26 Alkaline Phosphatase 63 units/L (35-129) 07/09/20 00:26 NT-Pro-B Natriuret Pep 2870 pg/mL (0-900) H 07/05/20 00:48 Total Protein 5.6 g/dL (6.3-8.2) L 07/09/20 00:26 Albumin 3.6 g/dL (3.9-5) L 07/09/20 00:26 Albumin/Globulin Ratio 1.8 % 07/09/20 00:26 Vitamin B12 1460 pg/mL (211-911) H 07/06/20 01:00 Folate 12.59 ng/mL (7.3-26.0) 07/06/20 01:00 Procalcitonin 0.17 ng/mL (<0.15) 07/08/20 05:47 TSH 0.375 mlU/mL (0.270-4.200) 07/08/20 20:26 Free T4 0.80 ng/dL (0.76-1.46) 07/08/20 20:26 Urine Eosinophils None seen (None Seen) 07/05/20 14:15 Urine Osmolality 591 Mosm/kg 07/06/20 12:41 Urine Creatinine 54.8 mg/dL (0.1-20.0) H 07/05/20 14:15 Protein/Creatinin Ratio 0.35 07/05/20 14:15 Urine Total Protein 19 mg/dL (5-11.8) H 07/05/20 14:15 Coronavirus (PCR) Negative (Negative) 07/17/20 09:08 - Diagnostic Impressions Diagnostic Impressions: Echocardiogram 07/04/20 16:16 Transthoracic Echocardiogram Indication: CHF BP: 123/69 Conclusions *THE PT IS TACHYCARDIC *EF 45-50% *MILD LVH *DIASTOLIC FUNCTION COULD NOT BE DETERMINED *AORTIC VALVE: MINIMAL STENOSIS MILD AI *R. HEART STRUCTURES NOT SEEN WELL *CONSIDER AMEENA Findings Left Ventricle: The left ventricular chamber size is normal. Mild concentric left ventricular hypertrophy is observed. There is diffuse global hypokinesis of the left ventricle. The estimated ejection fraction is 45-50%. Left Atrium: The left atrial chamber size is normal. Right Ventricle: The right ventricular cavity size is normal. The right ventricular global systolic function is normal. Right Atrium: The right atrial cavity size is normal. Aortic Valve: The aortic valve is trileaflet. There is mild thickening of the left coronary cusp. There is mild thickening of the right coronary cusp. There is mild thickening of the non coronary cusp. Systolic excursion of the aortic valve cusps is reduced. Moderate aortic cusp sclerosis is present. There is mild aortic regurgitation. There is mild aortic stenosis. Mitral Valve: The mitral valve leaflets appear normal. There is mild mitral regurgitation. Tricuspid Valve: The tricuspid valve leaflets are normal. There is trace tricuspid regurgitation. Pulmonic Valve: The pulmonic valve appears normal. There is trace pulmonic regurgitation. Pericardium: The pericardium appears normal. Aorta: There is no dilatation of the aortic root. Measurements Chambers 2D Name Value Normal Range IVSd (2D) 1.12 cm (0.6 - 1.1) LVPWd (2D) 1.11 cm (0.6 - 1.1) LVIDd (2D) 4.72 cm (3.7 - 5.6) LVIDs (2D) 4.15 cm (2 - 3.8) LV FS (2D) 12.13 % - EF Teichholz (2D) 26.22 % - Ao root diameter (2D) 3.58 cm (2 - 3.7) Volumes/Mass Name Value Normal Range LA ESV SP 4CH (A/L) 23.85 ml - LA ESV SP 2CH (A/L) 20.96 ml - LA ESV BP (A/L) 25.83 ml - LA ESV SP 4CH (MOD) 21.59 ml - LA ESV SP 2CH (MOD) 20.26 ml - LV EDV SP 4CH (MOD) 87.92 ml - LV ESV SP 4CH (MOD) 37.48 ml - EF SP 4CH (MOD) 57.37 % - LV EDV SP 2CH (MOD) 25.91 ml - LV ESV SP 2CH (MOD) 17.03 ml - EF SP 2CH (MOD) 34.27 % - LV EDV BP 54.13 ml - LV ESV BP 27.72 ml - BP EF (MOD) 48.79 % - Aortic Valve Name Value Normal Range AV Vmax 1.16 m/sec - AV VTI 16.08 cm - AV peak gradient 5.34 mmHg - AV mean gradient 2.54 mmHg - LVOT diameter 2.41 cm - LVOT Vmax 1.1 m/sec - LVOT VTI 13.43 cm - LVOT peak gradient 4.8 mmHg - LVOT mean gradient 1.8 mmHg - SV LVOT 61.45 ml - SYED (continuity Vmax) 4.34 cm2 - SYED (continuity VTI) 3.82 cm2 - AR PHT 359.99 msec - AR peak gradient 42.29 mmHg - Pulmonic Valve/Qp:Qs Name Value Normal Range PV Vmax 1.01 m/sec - PV peak gradient 4.07 mmHg - NE end-diastolic Vmax 1.36 m/sec - PV acceleration time 110.37 msec - Hollis/IV: Voiding Method Condom Catheter IV Catheter Type [Left Forearm INT / Saline Lock ] IV Catheter Type [Right Hand] Peripheral IV IV Catheter Type [Right INT / Saline Lock Antecubital] Active Medications - Current Medications Current Medications: Generic Name Dose Route Start Last Admin Trade Name Freq PRN Reason Stop Dose Admin Acetaminophen 650 mg 07/04/20 16:08 07/17/20 15:35 Tylenol PO 650 mg Q4H PRN Administration Pain MILD(1-3)/Fever >100.5/DUMONT Dextrose 50 ml 07/05/20 11:24 07/16/20 21:47 D50w (25gm) Syringe IV 50 ml Q30MIN PRN Administration Hypoglycemia Protocol Diphenoxylate HCl/Atropine 1 tab 07/12/20 15:48 07/16/20 16:35 Lomotil PO 1 tab Q6H PRN Administration Diarrhea Divalproex Sodium 250 mg 07/05/20 10:00 07/17/20 09:[address] PO 250 mg BID NYLA Administration Folic Acid 1 mg 07/16/20 10:00 07/17/20 09:22 Folvite PO 1 mg DAILY NYLA Administration Furosemide 20 mg 07/12/20 10:00 07/17/20 09:22 Lasix PO 20 mg DAILY NYLA Administration Insulin Human Lispro 0 unit 07/17/20 07:00 07/17/20 17:59 Humalog SUB-Q 3 unit AC NYLA Administration Protocol Levothyroxine Sodium 112 mcg 07/07/20 10:00 07/17/20 05:39 Synthroid PO 112 mcg DAILY@0600 NYLA Administration Olanzapine 7.5 mg 07/05/20 10:00 07/17/20 09:22 Zyprexa PO 7.5 mg QDAY NYLA Administration Ondansetron HCl 4 mg 07/04/20 16:08 07/05/20 10:38 Zofran IV 4 mg Q8H PRN Administration Nausea And Vomiting Pantoprazole Sodium 40 mg 07/08/20 11:00 07/17/20 15:35 Protonix PO 40 mg BIDAC NYLA Administration Sodium Chloride 10 ml 07/04/20 22:00 07/17/20 09:23 Sodium Chloride Flush Syringe 10 Ml IV 10 ml BID NYLA Administration Sodium Chloride 10 ml 07/04/20 16:08 07/09/20 04:01 Sodium Chloride Flush Syringe 10 Ml IV 10 ml PRN PRN Administration LINE FLUSH Sodium Chloride 1 gm 07/06/20 16:47 07/17/20 09:22 Sodium Chloride PO 1 gm BID NYLA Administration Trazodone HCl 50 mg 07/05/20 22:00 07/16/20 22:20 Desyrel PO 50 mg QHS NYLA Administration Nutrition/Malnutrition Assess - Dietary Evaluation Nutrition/Malnutrition Findings: Nutrition Notes Start: 07/06/20 10:29 Freq: Status: Active Protocol: Document 07/16/20 12:05 FRANKI (Rec: 07/16/20 12:15 FRANKI [id number]) Co-Sign 07/16/20 12:05 LP Nutrition Notes Initial or Follow up Reassessment Current Diagnosis Diabetes,Hypertension Other Pertinent Diagnosis Acute resp failure, tachycardia, RA, paranoid schizophrenia Current Diet Consistent CHO Labs/Tests Reviewed Pertinent Medications Reviewed Height 5 ft 6 in Weight 74.6 kg [place] Body Weight (kg) 64.54 BMI 26.5 Weight change and time frame Wt gain noted Weight Status Appropriate Subjective/Other Information F/u intakes. Per RN: Pt continues to have good intakes and still sips ONS. Finishes ~25% of it. Noted ONS intake at 100% on Monday and Monday per chart. Reminded RN that ONS needs refrigeration after being opened. Percent of energy/protein needs met: 86%/85% Burn Absent Trauma Absent GI Symptoms None Current % PO Fair (50-74%) Minimum of two criteria No #2 Nutrition Diagnosis Inadequate oral intake As Evidenced by Signs and Symptoms estimating pt meeting >75% of energy and protein needs on average Diagnosis Progress(for reassessment Improved documentation) #1 Nutrition Diagnosis Limited adherence to nutrition -related recommendations Diagnosis Progress(for reassessment Resolved documentation) Is patient on ventilator? No Is Patient Ambulatory and/or Out of Bed No REE-([facility]-confined to bed) 4710.843 Calculation Used for Recommendations [facility] Additional Notes Pro needs: 74-89g/day (1-1.2g/ kg) Fluid needs: 1ml/kcal Nutrition Intervention Change Diet Order: continue Add Supplement/Snack (indicate name/kcal Glucerna daily /protein ) Provides kCal: 220 Provides Protein (gm) 10 Goal #1 Meet at least 75% of energy and protein needs Anticipated Discharge Needs: CHO-controlled diet Follow-Up By: 07/23/20 Additional Comments F/u stable intakes and ONS acceptance.
[2020-07-17] MEDS: traZODone 50 MG TAB PO SCH (21:33)
[2020-07-18] MEDS: LEVOTHYROXINE 112 MCG TAB PO SCH (05:09)
[2020-07-18] MEDS: FUROSEMIDE 20 MG TAB PO SCH (09:37)
[2020-07-18] MEDS: DIVALPROEX DR 250 MG TAB PO SCH ×2 (09:37→21:21)
[2020-07-18] MEDS: FOLIC ACID 1 MG TAB PO SCH (09:37)
[2020-07-18] MEDS: SODIUM CHLORIDE 1 GM TAB PO SCH ×2 (09:37→21:21)
[2020-07-18] MEDS: PANTOPRAZOLE 40 MG TAB PO SCH ×2 (09:37→17:36)
[2020-07-18] MEDS: INSULIN LISPRO 100 UNIT/ML VIAL 3 mL SUB-Q SCH ×3 (09:40→17:36)
--- NOTE | 2020-07-18 13:27 | Progress Note ---
Assessment and Plan Assessment and plan: --Acute CHFrEF exacerbation s/p lasix iv, patient now appears compensated consulted cardiology, Echo with 45% EF monitor ins/ox, daily wt ---Acute respiratory failure with hypoxia Likely from PNA vs CHF exacerbation Continue oxygen supplementation 07/03. Chest xray shows scarring of the left lobe with no clear pneumonia or pulmonary edema NM lung scan -ve for PE. Echo with 45% EF ---Poorly controlled Diabetes mellitus type 2 Continue sliding scale insulin, Lantus at night HbA1c 9.5 Endocrinology follow up in the office after discharge ---Leucocytosis, trended down Possibly from steroids but procalcitonin is elevated and he is hypoxic Completed 5 days of empirical antibiotics with Rocephin, off steroid consulted ID for further management ordered CT chest, abdomen and pelvis with IV contrast to evaluate cause of leucocytosis - but patient refused ---Hyponatremia Trend, Osmolality serum and urine ordered --Sinus Tachycardia likely from respiratory failure. cont to follow ---Hypothyroidism (acquired) cont synthroid , normal TSH and T4 ---Upper GI bleed Has dark tarry stool as per RN cont PPI Stool +ve guaiac. GI consulted -patient does not want any endoscopy at this time ---Rheumatoid arthritis Methotrexate weekly, off steroid for now ---HTN (hypertension) Lisinopril 5 mg daily ---Schizophrenia, paranoid type Management as per psych --dementia with behavioral changes, continue supportive care --Diarrhea, on Imodium, patient already on Flagyl DVT prophylaxis - heparin Closely monitor the patient and adjust the management as needed Plan of care reviewed with the patient's nurse and case management 07/11: planned to d/c today. patient's planning to appeal the discharge. BP at low 90s. Will reduce the dose of Lasix, continue to monitor 07/12: Blood pressure remains low, will stop Lasix. Patient appears compensated now. Will consider IV fluid if BP remains low. Patient discharge is being hold as planned for appeal. 07/13: Patient's appealed for the discharge. client manager working on discharge planning. 07/14: discharge pending on appeal and family decision. 07/15: family decided for SNF placement - CM working on placement 07/16; patient is medically stable for discharge awaiting SNF placement level 2 07/17; medically stable, awaiting placement 07/18; awaiting placement. Level 2 History Interval history: I have seen and examined the patient at the bedside Patient wants to be discharged Alert and awake confused Awaiting placement Vital signs noted Hospitalist Physical - Constitutional Vitals: Temp Pulse Resp BP Pulse Ox 98.1 F 102 H 18 110/67 97 07/18/20 01:01 07/18/20 10:00 07/18/20 08:15 07/18/20 01:01 07/18/20 01:01 General appearance: Present: no acute distress, well-nourished, other (Agitated wants to go home) - EENT Eyes: Present: PERRL, EOM intact - Neck Neck: Present: supple, normal ROM - Respiratory Respiratory effort: normal Respiratory: bilateral: diminished, negative: rales, rhonchi, wheezing - Cardiovascular Rhythm: regular Heart Sounds: Present: S1 & S2 - Extremities Extremities: no ischemia, No edema - Abdominal General gastrointestinal: soft, non-tender, non-distended, normal bowel sounds - Integumentary Integumentary: Present: clear, warm - Psychiatric Psychiatric: appropriate mood/affect, cooperative - Neurologic Neurologic: moves all extremities Results - Labs CBC & Chem 7: 07/11/20 16:54 07/16/20 21:50 Labs: Laboratory Last Values WBC 13.5 K/mm3 (4.5-11.0) H 07/11/20 16:54 RBC 2.64 M/mm3 (3.65-5.03) L 07/11/20 16:54 Hgb 9.4 gm/dl (11.8-15.2) L 07/11/20 16:54 Hct 27.1 % (35.5-45.6) L 07/11/20 16:54 MCV 103 fl (84-94) H 07/11/20 16:54 MCH 36 pg (28-32) H 07/11/20 16:54 MCHC 35 % (32-34) H 07/11/20 16:54 RDW 15.3 % (13.2-15.2) H 07/11/20 16:54 Plt Count 254 K/mm3 (140-440) 07/11/20 16:54 Lymph % (Auto) 17.8 % (13.4-35.0) 07/09/20 00:26 [place] % (Auto) [employer] Instructor 07/11/20 00:30 Eos % (Auto) 0.5 % (0.0-4.3) 07/09/20 00:26 Baso % (Auto) 0.3 % (0.0-1.8) 07/09/20 00:26 Lymph # (Auto) 2.6 K/mm3 (1.2-5.4) 07/09/20 00:26 [place] # (Auto) 2.2 K/mm3 (0.0-0.8) H 07/09/20 00:26 Eos # (Auto) 0.1 K/mm3 (0.0-0.4) 07/09/20 00:26 Baso # (Auto) 0.0 K/mm3 (0.0-0.1) 07/09/20 00:26 Add Manual Diff Complete 07/11/20 00:30 Total Counted 100 07/11/20 00:30 Seg Neutrophils % 66.3 % (40.0-70.0) 07/09/20 00:26 Seg Neuts % (Manual) 56.0 % (40.0-70.0) 07/11/20 00:30 Band Neutrophils % 0 % 07/11/20 00:30 Lymphocytes % (Manual) 30.0 % (13.4-35.0) 07/11/20 00:30 Reactive Lymphs % (Man) 0 % 07/11/20 00:30 Monocytes % (Manual) 10.0 % (0.0-7.3) H 07/11/20 00:30 Eosinophils % (Manual) 4.0 % (0.0-4.3) 07/11/20 00:30 Basophils % (Manual) 0 % (0.0-1.8) 07/11/20 00:30 Metamyelocytes % 0 % 07/11/20 00:30 Myelocytes % 0 % 07/11/20 00:30 Promyelocytes % 0 % 07/11/20 00:30 Blast Cells % 0 % 07/11/20 00:30 Nucleated RBC % Not Reportable 07/11/20 00:30 Seg Neutrophils # 9.6 K/mm3 (1.8-7.7) H 07/09/20 00:26 Seg Neutrophils # Man 6.4 K/mm3 (1.8-7.7) 07/11/20 00:30 Band Neutrophils # 0.0 K/mm3 07/11/20 00:30 Lymphocytes # (Manual) 3.5 K/mm3 (1.2-5.4) 07/11/20 00:30 Abs React Lymphs (Man) 0.0 K/mm3 07/11/20 00:30 Monocytes # (Manual) 1.2 K/mm3 (0.0-0.8) H 07/11/20 00:30 Eosinophils # (Manual) 0.5 K/mm3 (0.0-0.4) H 07/11/20 00:30 Basophils # (Manual) 0.0 K/mm3 (0.0-0.1) 07/11/20 00:30 Metamyelocytes # 0.0 K/mm3 07/11/20 00:30 Myelocytes # 0.0 K/mm3 07/11/20 00:30 Promyelocytes # 0.0 K/mm3 07/11/20 00:30 Blast Cells # 0.0 K/mm3 07/11/20 00:30 WBC Morphology Not Reportable 07/11/20 00:30 Hypersegmented Neuts Not Reportable 07/11/20 00:30 Hyposegmented Neuts Not Reportable 07/11/20 00:30 Hypogranular Neuts Not Reportable 07/11/20 00:30 Smudge Cells Not Reportable 07/11/20 00:30 Toxic Granulation Not Reportable 07/11/20 00:30 Toxic Vacuolation Not Reportable 07/11/20 00:30 Dohle Bodies Not Reportable 07/11/20 00:30 Pelger-Huet Anomaly Not Reportable 07/11/20 00:30 Faiza Rods Not Reportable 07/11/20 00:30 Platelet Estimate Consistent w auto 07/11/20 00:30 Clumped Platelets Not Reportable 07/11/20 00:30 Plt Clumps, EDTA Not Reportable 07/11/20 00:30 Large Platelets Not Reportable 07/11/20 00:30 Giant Platelets Not Reportable 07/11/20 00:30 Platelet Satelliting Not Reportable 07/11/20 00:30 Plt Morphology Comment Not Reportable 07/11/20 00:30 RBC Morphology Not Reportable 07/11/20 00:30 Dimorphic RBCs Not Reportable 07/11/20 00:30 Polychromasia Not Reportable 07/11/20 00:30 Hypochromasia Not Reportable 07/11/20 00:30 Poikilocytosis Not Reportable 07/11/20 00:30 Anisocytosis Few 07/11/20 00:30 Microcytosis Not Reportable 07/11/20 00:30 Macrocytosis Not Reportable 07/11/20 00:30 Spherocytes Not Reportable 07/11/20 00:30 Pappenheimer Bodies Not Reportable 07/11/20 00:30 Sickle Cells Not Reportable 07/11/20 00:30 Target Cells Not Reportable 07/11/20 00:30 Tear Drop Cells Not Reportable 07/11/20 00:30 Ovalocytes Not Reportable 07/11/20 00:30 Helmet Cells Not Reportable 07/11/20 00:30 [place] Bodies Not Reportable 07/11/20 00:30 [place] Rings Not Reportable 07/11/20 00:30 Femi Cells Few 07/11/20 00:30 Bite Cells Not Reportable 07/11/20 00:30 Crenated Cell Not Reportable 07/11/20 00:30 Elliptocytes Not Reportable 07/11/20 00:30 Acanthocytes (Spur) Not Reportable 07/11/20 00:30 Rouleaux Not Reportable 07/11/20 00:30 Hemoglobin C Crystals Not Reportable 07/11/20 00:30 Schistocytes Not Reportable 07/11/20 00:30 Malaria parasites Not Reportable 07/11/20 00:30 Jakob Bodies Not Reportable 07/11/20 00:30 Hem Pathologist Commnt No 07/11/20 00:30 PT 14.8 Sec. (12.2-14.9) 07/05/20 00:48 INR 1.15 (0.87-1.13) H 07/05/20 00:48 ABG pH 7.392 (7.320-7.450) 07/05/20 20:45 POC ABG pCO2 32.1 mmHg (32.0-48.0) 07/05/20 20:45 POC ABG pO2 107.4 mmHg (83-108) 07/05/20 20:45 POC ABG HCO3 19.1 07/05/20 20:45 POC ABG Base Excess -4.9 07/05/20 20:45 ABG Hemoglobin 12.7 (12.0-17.5) 07/05/20 20:45 ABG Oxyhemoglobin 97.2 (94-98) 07/05/20 20:45 ABG Methemoglobin 0.3 (0.0-1.5) 07/05/20 20:45 Carboxyhemoglobin 0.4 (0.5-1.5) L 07/05/20 20:45 FiO2 40 07/05/20 20:45 Sodium 134 mmol/L (137-145) L 07/11/20 00:30 Potassium 4.0 mmol/L (3.6-5.0) D 07/11/20 00:30 Chloride 94.2 mmol/L (98-107) L 07/11/20 00:30 Carbon Dioxide 24 mmol/L (22-30) 07/11/20 00:30 Anion Gap 20 mmol/L 07/11/20 00:30 BUN 22 mg/dL (9-20) H 07/11/20 00:30 Creatinine 0.9 mg/dL (0.8-1.3) 07/11/20 00:30 Estimated GFR > 60 ml/min 07/11/20 00:30 BUN/Creatinine Ratio 24 % 07/11/20 00:30 Glucose 37 mg/dL (75-100) L* 07/16/20 21:50 POC Glucose 232 (70-105) H 07/18/20 12:34 Hemoglobin A1c 8.6 % (4-6) H 07/12/20 06:44 Osmolality 291 Mosm/kg 07/06/20 13:47 Calcium 8.5 mg/dL (8.4-10.2) 07/11/20 00:30 Magnesium 1.70 mg/dL (1.7-2.3) 07/09/20 10:27 Total Bilirubin 0.30 mg/dL (0.1-1.2) 07/09/20 00:26 AST 23 units/L (5-40) 07/09/20 00:26 ALT 22 units/L (7-56) 07/09/20 00:26 Alkaline Phosphatase 63 units/L (35-129) 07/09/20 00:26 NT-Pro-B Natriuret Pep 2870 pg/mL (0-900) H 07/05/20 00:48 Total Protein 5.6 g/dL (6.3-8.2) L 07/09/20 00:26 Albumin 3.6 g/dL (3.9-5) L 07/09/20 00:26 Albumin/Globulin Ratio 1.8 % 07/09/20 00:26 Vitamin B12 1460 pg/mL (211-911) H 07/06/20 01:00 Folate 12.59 ng/mL (7.3-26.0) 07/06/20 01:00 Procalcitonin 0.17 ng/mL (<0.15) 07/08/20 05:47 TSH 0.375 mlU/mL (0.270-4.200) 07/08/20 20:26 Free T4 0.80 ng/dL (0.76-1.46) 07/08/20 20:26 Urine Eosinophils None seen (None Seen) 07/05/20 14:15 Urine Osmolality 591 Mosm/kg 07/06/20 12:41 Urine Creatinine 54.8 mg/dL (0.1-20.0) H 07/05/20 14:15 Protein/Creatinin Ratio 0.35 07/05/20 14:15 Urine Total Protein 19 mg/dL (5-11.8) H 07/05/20 14:15 Coronavirus (PCR) Negative (Negative) 07/17/20 09:08 - Diagnostic Impressions Diagnostic Impressions: Echocardiogram 07/04/20 16:16 Transthoracic Echocardiogram Indication: CHF BP: 123/69 Conclusions *THE PT IS TACHYCARDIC *EF 45-50% *MILD LVH *DIASTOLIC FUNCTION COULD NOT BE DETERMINED *AORTIC VALVE: MINIMAL STENOSIS MILD AI *R. HEART STRUCTURES NOT SEEN WELL *CONSIDER AMEENA Findings Left Ventricle: The left ventricular chamber size is normal. Mild concentric left ventricular hypertrophy is observed. There is diffuse global hypokinesis of the left ventricle. The estimated ejection fraction is 45-50%. Left Atrium: The left atrial chamber size is normal. Right Ventricle: The right ventricular cavity size is normal. The right ventricular global systolic function is normal. Right Atrium: The right atrial cavity size is normal. Aortic Valve: The aortic valve is trileaflet. There is mild thickening of the left coronary cusp. There is mild thickening of the right coronary cusp. There is mild thickening of the non coronary cusp. Systolic excursion of the aortic valve cusps is reduced. Moderate aortic cusp sclerosis is present. There is mild aortic regurgitation. There is mild aortic stenosis. Mitral Valve: The mitral valve leaflets appear normal. There is mild mitral regurgitation. Tricuspid Valve: The tricuspid valve leaflets are normal. There is trace tricuspid regurgitation. Pulmonic Valve: The pulmonic valve appears normal. There is trace pulmonic regurgitation. Pericardium: The pericardium appears normal. Aorta: There is no dilatation of the aortic root. Measurements Chambers 2D Name Value Normal Range IVSd (2D) 1.12 cm (0.6 - 1.1) LVPWd (2D) 1.11 cm (0.6 - 1.1) LVIDd (2D) 4.72 cm (3.7 - 5.6) LVIDs (2D) 4.15 cm (2 - 3.8) LV FS (2D) 12.13 % - EF Teichholz (2D) 26.22 % - Ao root diameter (2D) 3.58 cm (2 - 3.7) Volumes/Mass Name Value Normal Range LA ESV SP 4CH (A/L) 23.85 ml - LA ESV SP 2CH (A/L) 20.96 ml - LA ESV BP (A/L) 25.83 ml - LA ESV SP 4CH (MOD) 21.59 ml - LA ESV SP 2CH (MOD) 20.26 ml - LV EDV SP 4CH (MOD) 87.92 ml - LV ESV SP 4CH (MOD) 37.48 ml - EF SP 4CH (MOD) 57.37 % - LV EDV SP 2CH (MOD) 25.91 ml - LV ESV SP 2CH (MOD) 17.03 ml - EF SP 2CH (MOD) 34.27 % - LV EDV BP 54.13 ml - LV ESV BP 27.72 ml - BP EF (MOD) 48.79 % - Aortic Valve Name Value Normal Range AV Vmax 1.16 m/sec - AV VTI 16.08 cm - AV peak gradient 5.34 mmHg - AV mean gradient 2.54 mmHg - LVOT diameter 2.41 cm - LVOT Vmax 1.1 m/sec - LVOT VTI 13.43 cm - LVOT peak gradient 4.8 mmHg - LVOT mean gradient 1.8 mmHg - SV LVOT 61.45 ml - SYED (continuity Vmax) 4.34 cm2 - SYED (continuity VTI) 3.82 cm2 - AR PHT 359.99 msec - AR peak gradient 42.29 mmHg - Pulmonic Valve/Qp:Qs Name Value Normal Range PV Vmax 1.01 m/sec - PV peak gradient 4.07 mmHg - SD end-diastolic Vmax 1.36 m/sec - PV acceleration time 110.37 msec - Hollis/IV: Voiding Method Urinal IV Catheter Type [Left Forearm INT / Saline Lock ] IV Catheter Type [Right Hand] Peripheral IV IV Catheter Type [Right INT / Saline Lock Antecubital] Active Medications - Current Medications Current Medications: Generic Name Dose Route Start Last Admin Trade Name Freq PRN Reason Stop Dose Admin Acetaminophen 650 mg 07/04/20 16:08 07/17/20 15:35 Tylenol PO 650 mg Q4H PRN Administration Pain MILD(1-3)/Fever >100.5/DUMONT Dextrose 50 ml 07/05/20 11:24 07/16/20 21:47 D50w (25gm) Syringe IV 50 ml Q30MIN PRN Administration Hypoglycemia Protocol Diphenoxylate HCl/Atropine 1 tab 07/12/20 15:48 07/16/20 16:35 Lomotil PO 1 tab Q6H PRN Administration Diarrhea Divalproex Sodium 250 mg 07/05/20 10:00 07/18/20 09:[address] PO 250 mg BID NYLA Administration Folic Acid 1 mg 07/16/20 10:00 07/18/20 09:37 Folvite PO 1 mg DAILY NYLA Administration Furosemide 20 mg 07/12/20 10:00 07/18/20 09:37 Lasix PO 20 mg DAILY NYLA Administration Insulin Human Lispro 0 unit 07/17/20 07:00 07/18/20 12:57 Humalog SUB-Q 2 unit AC NYLA Administration Protocol Levothyroxine Sodium 112 mcg 07/07/20 10:00 07/18/20 05:09 Synthroid PO 112 mcg DAILY@0600 NYLA Administration Olanzapine 7.5 mg 07/05/20 10:00 07/18/20 09:38 Zyprexa PO 7.5 mg QDAY NYLA Administration Ondansetron HCl 4 mg 07/04/20 16:08 07/05/20 10:38 Zofran IV 4 mg Q8H PRN Administration Nausea And Vomiting Pantoprazole Sodium 40 mg 07/08/20 11:00 07/18/20 09:37 Protonix PO 40 mg BIDAC NYLA Administration Sodium Chloride 10 ml 07/04/20 22:00 07/18/20 09:38 Sodium Chloride Flush Syringe 10 Ml IV 10 ml BID NYLA Administration Sodium Chloride 10 ml 07/04/20 16:08 07/09/20 04:01 Sodium Chloride Flush Syringe 10 Ml IV 10 ml PRN PRN Administration LINE FLUSH Sodium Chloride 1 gm 07/06/20 16:47 07/18/20 09:37 Sodium Chloride PO 1 gm BID NYLA Administration Trazodone HCl 50 mg 07/05/20 22:00 07/17/20 21:33 Desyrel PO 50 mg QHS NYLA Administration Nutrition/Malnutrition Assess - Dietary Evaluation Nutrition/Malnutrition Findings: Nutrition Notes Start: 07/06/20 10:29 Freq: Status: Active Protocol: Document 07/16/20 12:05 FRANKI (Rec: 07/16/20 12:15 [email or web address] [id number]) Co-Sign 07/16/20 12:05 LP Nutrition Notes Initial or Follow up Reassessment Current Diagnosis Diabetes,Hypertension Other Pertinent Diagnosis Acute resp failure, tachycardia, RA, paranoid schizophrenia Current Diet Consistent CHO Labs/Tests Reviewed Pertinent Medications Reviewed Height 5 ft 6 in Weight 74.6 kg [place] Body Weight (kg) 64.54 BMI 26.5 Weight change and time frame Wt gain noted Weight Status Appropriate Subjective/Other Information F/u intakes. Per RN: Pt continues to have good intakes and still sips ONS. Finishes ~25% of it. Noted ONS intake at 100% on Monday and Monday per chart. Reminded RN that ONS needs refrigeration after being opened. Percent of energy/protein needs met: 86%/85% Burn Absent Trauma Absent GI Symptoms None Current % PO Fair (50-74%) Minimum of two criteria No #2 Nutrition Diagnosis Inadequate oral intake As Evidenced by Signs and Symptoms estimating pt meeting >75% of energy and protein needs on average Diagnosis Progress(for reassessment Improved documentation) #1 Nutrition Diagnosis Limited adherence to nutrition -related recommendations Diagnosis Progress(for reassessment Resolved documentation) Is patient on ventilator? No Is Patient Ambulatory and/or Out of Bed No REE-([facility]-confined to bed) [phone] Calculation Used for Recommendations [facility] Additional Notes Pro needs: 74-89g/day (1-1.2g/ kg) Fluid needs: 1ml/kcal Nutrition Intervention Change Diet Order: continue Add Supplement/Snack (indicate name/kcal Glucerna daily /protein ) Provides kCal: 220 Provides Protein (gm) 10 Goal #1 Meet at least 75% of energy and protein needs Anticipated Discharge Needs: CHO-controlled diet Follow-Up By: 07/23/20 Additional Comments F/u stable intakes and ONS acceptance.
[2020-07-18] MEDS: traZODone 50 MG TAB PO SCH (21:21)
[2020-07-19 04:34] LABS: Basophils # (Auto) 0.1 K/mm3 (0.0-0.1); Basophils % (Auto) 1.1 % (0.0-1.8); Eosinophils # (Auto) 0.1 K/mm3 (0.0-0.4); Eosinophils % (Auto) 0.6 % (0.0-4.3); Hematocrit 31.8 % (35.5-45.6); Hemoglobin 10.3 gm/dl (11.8-15.2); Lymphocytes # (Auto) 2.5 K/mm3 (1.2-5.4); Lymphocytes % (Auto) 30.6 % (13.4-35.0); Mean Corpuscular HGB Conc 32 % (32-34); Mean Corpuscular Volume 102 fl (84-94); Monocytes % (Auto) 12.4 % (0.0-7.3); Platelet Count 258 K/mm3 (140-440); Red Blood Count 3.13 M/mm3 (3.65-5.03); Red Cell Distribution Width 14.7 % (13.2-15.2)
[2020-07-19 04:45] LABS: Blood Urea Nitrogen 17 mg/dL (9-20); Calcium 8.5 mg/dL (8.4-10.2); Hemolysis Index 3
[2020-07-19 04:46] LABS: BUN/Creatinine Ratio 24
[2020-07-19] MEDS: LEVOTHYROXINE 112 MCG TAB PO SCH (04:59)
[2020-07-19] MEDS: INSULIN LISPRO 100 UNIT/ML VIAL 3 mL SUB-Q SCH ×3 (08:00→18:21)
[2020-07-19] MEDS: FOLIC ACID 1 MG TAB PO SCH (11:14)
[2020-07-19] MEDS: FUROSEMIDE 20 MG TAB PO SCH (11:14)
[2020-07-19] MEDS: PANTOPRAZOLE 40 MG TAB PO SCH (11:14)
[2020-07-19] MEDS: DIVALPROEX DR 250 MG TAB PO SCH ×2 (11:14→21:38)
[2020-07-19] MEDS: INSULIN NPH/REGULAR 70/30 INJ SUB-Q SCH ×2 (11:15→18:21)
[2020-07-19] MEDS: SODIUM CHLORIDE 1 GM TAB PO SCH ×2 (11:16→21:38)
--- NOTE | 2020-07-19 19:31 | Progress Note ---
Assessment and Plan Assessment and plan: ---Acute respiratory failure with hypoxia Likely from PNA vs CHF exacerbation, Continue oxygen supplementation 07/03. Chest xray shows scarring of the left lobe with no clear pneumonia or pulmonary edema NM lung scan -ve for PE. , Echo with 45% EF --Acute CHFrEF exacerbation s/p lasix iv, patient now appears compensated consulted cardiology, Echo with 45% EF, monitor ins/ox, daily wt ---Poorly controlled Diabetes mellitus type 2 Continue sliding scale insulin, Lantus at night HbA1c 9.5 Endocrinology follow up in the office after discharge ---Leucocytosis, resolved Possibly from steroids but procalcitonin is elevated and he is hypoxic Completed 5 days of empirical antibiotics with Rocephin, off steroid ordered CT chest, abdomen and pelvis with IV contrast to evaluate Patient refused ---Hyponatremia resolved --Sinus Tachycardia likely from respiratory failure. cont to follow ---Hypothyroidism (acquired) cont synthroid , normal TSH and T4 ---Upper GI bleed Has dark tarry stool as per RN, cont PPI Stool +ve guaiac. GI recommend endoscopy, patient refused ---Rheumatoid arthritis Methotrexate weekly, off steroid for now ---HTN (hypertension) Lisinopril 5 mg daily ---Schizophrenia, paranoid type Management as per psych --dementia with behavioral changes, continue supportive care --Diarrhea, on Imodium, patient already on Flagyl DVT prophylaxis - heparin Closely monitor the patient and adjust the management as needed Plan of care reviewed with the patient's nurse and case management 07/11: planned to d/c today. patient's planning to appeal the discharge. BP at low 90s. Will reduce the dose of Lasix, continue to monitor 07/12: Blood pressure remains low, will stop Lasix. Patient appears compensated now. Will consider IV fluid if BP remains low. Patient discharge is being hold as planned for appeal. 07/13: Patient's appealed for the discharge. manager media relations working on discharge planning. 07/14: discharge pending on appeal and family decision. 07/15: family decided for SNF placement - [facility] working on placement 07/16; patient is medically stable for discharge awaiting SNF placement level 2 07/17; medically stable, awaiting placement 07/18; awaiting placement. Level 2 07/19; patient stable awaiting placement History Interval history: I have seen and examined the patient at the bedside today Patient has no new complaints Vital signs stable Awaiting placement Hospitalist Physical - Constitutional Vitals: Temp Pulse Resp BP Pulse Ox 98.2 F 104 H 18 116/68 95 07/19/20 15:22 07/19/20 15:20 07/19/20 15:22 07/19/20 15:22 07/19/20 15:20 General appearance: Present: no acute distress, well-nourished, other (Agitated wants to go home) - EENT Eyes: Present: PERRL, EOM intact - Neck Neck: Present: supple, normal ROM - Respiratory Respiratory effort: normal Respiratory: bilateral: diminished, negative: rales, rhonchi, wheezing - Cardiovascular Rhythm: regular Heart Sounds: Present: S1 & S2 - Extremities Extremities: no ischemia, No edema - Abdominal General gastrointestinal: soft, non-tender, non-distended, normal bowel sounds - Integumentary Integumentary: Present: clear, warm - Psychiatric Psychiatric: appropriate mood/affect, other (Confused at times) - Neurologic Neurologic: moves all extremities Results - Labs CBC & Chem 7: 07/19/20 04:12 07/19/20 04:12 Labs: Laboratory Last Values WBC 8.2 K/mm3 (4.5-11.0) 07/19/20 04:12 RBC 3.13 M/mm3 (3.65-5.03) L 07/19/20 04:12 Hgb 10.3 gm/dl (11.8-15.2) L 07/19/20 04:12 Hct 31.8 % (35.5-45.6) L 07/19/20 04:12 MCV 102 fl (84-94) H 07/19/20 04:12 MCH 33 pg (28-32) H 07/19/20 04:12 MCHC 32 % (32-34) 07/19/20 04:12 RDW 14.7 % (13.2-15.2) 07/19/20 04:12 Plt Count 258 K/mm3 (140-440) 07/19/20 04:12 Lymph % (Auto) 30.6 % (13.4-35.0) 07/19/20 04:12 Dickinson % (Auto) 12.4 % (0.0-7.3) H 07/19/20 04:12 Eos % (Auto) 0.6 % (0.0-4.3) 07/19/20 04:12 Baso % (Auto) 1.1 % (0.0-1.8) 07/19/20 04:12 Lymph # (Auto) 2.5 K/mm3 (1.2-5.4) 07/19/20 04:12 Dickinson # (Auto) 1.0 K/mm3 (0.0-0.8) H 07/19/20 04:12 Eos # (Auto) 0.1 K/mm3 (0.0-0.4) 07/19/20 04:12 Baso # (Auto) 0.1 K/mm3 (0.0-0.1) 07/19/20 04:12 Add Manual Diff Complete 07/11/20 00:30 Total Counted 100 07/11/20 00:30 Seg Neutrophils % 55.3 % (40.0-70.0) 07/19/20 04:12 Seg Neuts % (Manual) 56.0 % (40.0-70.0) 07/11/20 00:30 Band Neutrophils % 0 % 07/11/20 00:30 Lymphocytes % (Manual) 30.0 % (13.4-35.0) 07/11/20 00:30 Reactive Lymphs % (Man) 0 % 07/11/20 00:30 Monocytes % (Manual) 10.0 % (0.0-7.3) H 07/11/20 00:30 Eosinophils % (Manual) 4.0 % (0.0-4.3) 07/11/20 00:30 Basophils % (Manual) 0 % (0.0-1.8) 07/11/20 00:30 Metamyelocytes % 0 % 07/11/20 00:30 Myelocytes % 0 % 07/11/20 00:30 Promyelocytes % 0 % 07/11/20 00:30 Blast Cells % 0 % 07/11/20 00:30 Nucleated RBC % Not Reportable 07/11/20 00:30 Seg Neutrophils # 4.5 K/mm3 (1.8-7.7) 07/19/20 04:12 Seg Neutrophils # Man 6.4 K/mm3 (1.8-7.7) 07/11/20 00:30 Band Neutrophils # 0.0 K/mm3 07/11/20 00:30 Lymphocytes # (Manual) 3.5 K/mm3 (1.2-5.4) 07/11/20 00:30 Abs React Lymphs (Man) 0.0 K/mm3 07/11/20 00:30 Monocytes # (Manual) 1.2 K/mm3 (0.0-0.8) H 07/11/20 00:30 Eosinophils # (Manual) 0.5 K/mm3 (0.0-0.4) H 07/11/20 00:30 Basophils # (Manual) 0.0 K/mm3 (0.0-0.1) 07/11/20 00:30 Metamyelocytes # 0.0 K/mm3 07/11/20 00:30 Myelocytes # 0.0 K/mm3 07/11/20 00:30 Promyelocytes # 0.0 K/mm3 07/11/20 00:30 Blast Cells # 0.0 K/mm3 07/11/20 00:30 WBC Morphology Not Reportable 07/11/20 00:30 Hypersegmented Neuts Not Reportable 07/11/20 00:30 Hyposegmented Neuts Not Reportable 07/11/20 00:30 Hypogranular Neuts Not Reportable 07/11/20 00:30 Smudge Cells Not Reportable 07/11/20 00:30 Toxic Granulation Not Reportable 07/11/20 00:30 Toxic Vacuolation Not Reportable 07/11/20 00:30 Dohle Bodies Not Reportable 07/11/20 00:30 Pelger-Huet Anomaly Not Reportable 07/11/20 00:30 Faiza Rods Not Reportable 07/11/20 00:30 Platelet Estimate Consistent w auto 07/11/20 00:30 Clumped Platelets Not Reportable 07/11/20 00:30 Plt Clumps, EDTA Not Reportable 07/11/20 00:30 Large Platelets Not Reportable 07/11/20 00:30 Giant Platelets Not Reportable 07/11/20 00:30 Platelet Satelliting Not Reportable 07/11/20 00:30 Plt Morphology Comment Not Reportable 07/11/20 00:30 RBC Morphology Not Reportable 07/11/20 00:30 Dimorphic RBCs Not Reportable 07/11/20 00:30 Polychromasia Not Reportable 07/11/20 00:30 Hypochromasia Not Reportable 07/11/20 00:30 Poikilocytosis Not Reportable 07/11/20 00:30 Anisocytosis Few 07/11/20 00:30 Microcytosis Not Reportable 07/11/20 00:30 Macrocytosis Not Reportable 07/11/20 00:30 Spherocytes Not Reportable 07/11/20 00:30 Pappenheimer Bodies Not Reportable 07/11/20 00:30 Sickle Cells Not Reportable 07/11/20 00:30 Target Cells Not Reportable 07/11/20 00:30 Tear Drop Cells Not Reportable 07/11/20 00:30 Ovalocytes Not Reportable 07/11/20 00:30 Helmet Cells Not Reportable 07/11/20 00:30 [place] Bodies Not Reportable 07/11/20 00:30 [place] Rings Not Reportable 07/11/20 00:30 Femi Cells Few 07/11/20 00:30 Bite Cells Not Reportable 07/11/20 00:30 Crenated Cell Not Reportable 07/11/20 00:30 Elliptocytes Not Reportable 07/11/20 00:30 Acanthocytes (Spur) Not Reportable 07/11/20 00:30 Rouleaux Not Reportable 07/11/20 00:30 Hemoglobin C Crystals Not Reportable 07/11/20 00:30 Schistocytes Not Reportable 07/11/20 00:30 Malaria parasites Not Reportable 07/11/20 00:30 Jakob Bodies Not Reportable 07/11/20 00:30 Hem Pathologist Commnt No 07/11/20 00:30 PT 14.8 Sec. (12.2-14.9) 07/05/20 00:48 INR 1.15 (0.87-1.13) H 07/05/20 00:48 ABG pH 7.392 (7.320-7.450) 07/05/20 20:45 POC ABG pCO2 32.1 mmHg (32.0-48.0) 07/05/20 20:45 POC ABG pO2 107.4 mmHg (83-108) 07/05/20 20:45 POC ABG HCO3 19.1 07/05/20 20:45 POC ABG Base Excess -4.9 07/05/20 20:45 ABG Hemoglobin 12.7 (12.0-17.5) 07/05/20 20:45 ABG Oxyhemoglobin 97.2 (94-98) 07/05/20 20:45 ABG Methemoglobin 0.3 (0.0-1.5) 07/05/20 20:45 Carboxyhemoglobin 0.4 (0.5-1.5) L 07/05/20 20:45 FiO2 40 07/05/20 20:45 Sodium 139 mmol/L (137-145) 07/19/20 04:12 Potassium 4.0 mmol/L (3.6-5.0) 07/19/20 04:12 Chloride 101.0 mmol/L (98-107) 07/19/20 04:12 Carbon Dioxide 27 mmol/L (22-30) 07/19/20 04:12 Anion Gap 15 mmol/L 07/19/20 04:12 BUN 17 mg/dL (9-20) 07/19/20 04:12 Creatinine 0.7 mg/dL (0.8-1.3) L 07/19/20 04:12 Estimated GFR > 60 ml/min 07/19/20 04:12 BUN/Creatinine Ratio 24 % 07/19/20 04:12 Glucose 304 mg/dL (75-100) H 07/19/20 04:12 POC Glucose 311 (70-105) H 07/19/20 15:35 Hemoglobin A1c 8.6 % (4-6) H 07/12/20 06:44 Osmolality 291 Mosm/kg 07/06/20 13:47 Calcium 8.5 mg/dL (8.4-10.2) 07/19/20 04:12 Magnesium 1.70 mg/dL (1.7-2.3) 07/09/20 10:27 Total Bilirubin 0.30 mg/dL (0.1-1.2) 07/09/20 00:26 AST 23 units/L (5-40) 07/09/20 00:26 ALT 22 units/L (7-56) 07/09/20 00:26 Alkaline Phosphatase 63 units/L (35-129) 07/09/20 00:26 NT-Pro-B Natriuret Pep 2870 pg/mL (0-900) H 07/05/20 00:48 Total Protein 5.6 g/dL (6.3-8.2) L 07/09/20 00:26 Albumin 3.6 g/dL (3.9-5) L 07/09/20 00:26 Albumin/Globulin Ratio 1.8 % 07/09/20 00:26 Vitamin B12 1460 pg/mL (211-911) H 07/06/20 01:00 Folate 12.59 ng/mL (7.3-26.0) 07/06/20 01:00 Procalcitonin 0.17 ng/mL (<0.15) 07/08/20 05:47 TSH 0.375 mlU/mL (0.270-4.200) 07/08/20 20:26 Free T4 0.80 ng/dL (0.76-1.46) 07/08/20 20:26 Urine Eosinophils None seen (None Seen) 07/05/20 14:15 Urine Osmolality 591 Mosm/kg 07/06/20 12:41 Urine Creatinine 54.8 mg/dL (0.1-20.0) H 07/05/20 14:15 Protein/Creatinin Ratio 0.35 07/05/20 14:15 Urine Total Protein 19 mg/dL (5-11.8) H 07/05/20 14:15 Coronavirus (PCR) Negative (Negative) 07/17/20 09:08 - Diagnostic Impressions Diagnostic Impressions: Echocardiogram 07/04/20 16:16 Transthoracic Echocardiogram Indication: CHF BP: 123/69 Conclusions *THE PT IS TACHYCARDIC *EF 45-50% *MILD LVH *DIASTOLIC FUNCTION COULD NOT BE DETERMINED *AORTIC VALVE: MINIMAL STENOSIS MILD AI *R. HEART STRUCTURES NOT SEEN WELL *CONSIDER AMEENA Findings Left Ventricle: The left ventricular chamber size is normal. Mild concentric left ventricular hypertrophy is observed. There is diffuse global hypokinesis of the left ventricle. The estimated ejection fraction is 45-50%. Left Atrium: The left atrial chamber size is normal. Right Ventricle: The right ventricular cavity size is normal. The right ventricular global systolic function is normal. Right Atrium: The right atrial cavity size is normal. Aortic Valve: The aortic valve is trileaflet. There is mild thickening of the left coronary cusp. There is mild thickening of the right coronary cusp. There is mild thickening of the non coronary cusp. Systolic excursion of the aortic valve cusps is reduced. Moderate aortic cusp sclerosis is present. There is mild aortic regurgitation. There is mild aortic stenosis. Mitral Valve: The mitral valve leaflets appear normal. There is mild mitral regurgitation. Tricuspid Valve: The tricuspid valve leaflets are normal. There is trace tricuspid regurgitation. Pulmonic Valve: The pulmonic valve appears normal. There is trace pulmonic regurgitation. Pericardium: The pericardium appears normal. Aorta: There is no dilatation of the aortic root. Measurements Chambers 2D Name Value Normal Range IVSd (2D) 1.12 cm (0.6 - 1.1) LVPWd (2D) 1.11 cm (0.6 - 1.1) LVIDd (2D) 4.72 cm (3.7 - 5.6) LVIDs (2D) 4.15 cm (2 - 3.8) LV FS (2D) 12.13 % - EF Teichholz (2D) 26.22 % - Ao root diameter (2D) 3.58 cm (2 - 3.7) Volumes/Mass Name Value Normal Range LA ESV SP 4CH (A/L) 23.85 ml - LA ESV SP 2CH (A/L) 20.96 ml - LA ESV BP (A/L) 25.83 ml - LA ESV SP 4CH (MOD) 21.59 ml - LA ESV SP 2CH (MOD) 20.26 ml - LV EDV SP 4CH (MOD) 87.92 ml - LV ESV SP 4CH (MOD) 37.48 ml - EF SP 4CH (MOD) 57.37 % - LV EDV SP 2CH (MOD) 25.91 ml - LV ESV SP 2CH (MOD) 17.03 ml - EF SP 2CH (MOD) 34.27 % - LV EDV BP 54.13 ml - LV ESV BP 27.72 ml - BP EF (MOD) 48.79 % - Aortic Valve Name Value Normal Range AV Vmax 1.16 m/sec - AV VTI 16.08 cm - AV peak gradient 5.34 mmHg - AV mean gradient 2.54 mmHg - LVOT diameter 2.41 cm - LVOT Vmax 1.1 m/sec - LVOT VTI 13.43 cm - LVOT peak gradient 4.8 mmHg - LVOT mean gradient 1.8 mmHg - SV LVOT 61.45 ml - SYED (continuity Vmax) 4.34 cm2 - SYED (continuity VTI) 3.82 cm2 - AR PHT 359.99 msec - AR peak gradient 42.29 mmHg - Pulmonic Valve/Qp:Qs Name Value Normal Range PV Vmax 1.01 m/sec - PV peak gradient 4.07 mmHg - NV end-diastolic Vmax 1.36 m/sec - PV acceleration time 110.37 msec - Hollis/IV: Voiding Method Urinal IV Catheter Type [Left Forearm INT / Saline Lock ] IV Catheter Type [Right Hand] Peripheral IV IV Catheter Type [Right INT / Saline Lock Antecubital] Active Medications - Current Medications Current Medications: Generic Name Dose Route Start Last Admin Trade Name Freq PRN Reason Stop Dose Admin Acetaminophen 650 mg 07/04/20 16:08 07/17/20 15:35 Tylenol PO 650 mg Q4H PRN Administration Pain MILD(1-3)/Fever >100.5/DUMONT Dextrose 50 ml 07/05/20 11:24 07/16/20 21:47 D50w (25gm) Syringe IV 50 ml Q30MIN PRN Administration Hypoglycemia Protocol Diphenoxylate HCl/Atropine 1 tab 07/12/20 15:48 07/16/20 16:35 Lomotil PO 1 tab Q6H PRN Administration Diarrhea Divalproex Sodium 250 mg 07/05/20 10:00 07/19/20 11:[address] PO 250 mg BID NYLA Administration Folic Acid 1 mg 07/16/20 10:00 07/19/20 11:14 Folvite PO 1 mg DAILY NYLA Administration Furosemide 20 mg 07/12/20 10:00 07/19/20 11:14 Lasix PO 20 mg DAILY NYLA Administration Insulin Human Isoph/Insulin Regular 8 unit 07/19/20 08:00 07/19/20 18:21 Humulin 70/30 SUB-Q 8 unit BIDDIAB NYLA Administration Insulin Human Lispro 0 unit 07/17/20 07:00 07/19/20 18:21 Humalog SUB-Q 4 unit AC NYLA Administration Protocol Levothyroxine Sodium 112 mcg 07/07/20 10:00 07/19/20 04:59 Synthroid PO 112 mcg DAILY@0600 NYLA Administration Olanzapine 7.5 mg 07/05/20 10:00 07/19/20 11:15 Zyprexa PO 7.5 mg QDAY NYLA Administration Ondansetron HCl 4 mg 07/04/20 16:08 07/05/20 10:38 Zofran IV 4 mg Q8H PRN Administration Nausea And Vomiting Pantoprazole Sodium 40 mg 07/08/20 11:00 07/19/20 11:14 Protonix PO 40 mg BIDAC NYLA Administration Sodium Chloride 10 ml 07/04/20 22:00 07/19/20 11:15 Sodium Chloride Flush Syringe 10 Ml IV 10 ml BID NYLA Administration Sodium Chloride 10 ml 07/04/20 16:08 07/09/20 04:01 Sodium Chloride Flush Syringe 10 Ml IV 10 ml PRN PRN Administration LINE FLUSH Sodium Chloride 1 gm 07/06/20 16:47 07/19/20 11:16 Sodium Chloride PO Not Given BID NYLA Trazodone HCl 50 mg 07/05/20 22:00 07/18/20 21:21 Desyrel PO 50 mg QHS NYLA Administration Nutrition/Malnutrition Assess - Dietary Evaluation Nutrition/Malnutrition Findings: Nutrition Notes Start: 07/06/20 10:29 Freq: Status: Active Protocol: Document 07/16/20 12:05 FRANKI (Rec: 07/16/20 12:15 FRANKI [id number]) Co-Sign 07/16/20 12:05 LP Nutrition Notes Initial or Follow up Reassessment Current Diagnosis Diabetes,Hypertension Other Pertinent Diagnosis Acute resp failure, tachycardia, RA, paranoid schizophrenia Current Diet Consistent CHO Labs/Tests Reviewed Pertinent Medications Reviewed Height 5 ft 6 in Weight 74.6 kg [place] Body Weight (kg) 64.54 BMI 26.5 Weight change and time frame Wt gain noted Weight Status Appropriate Subjective/Other Information F/u intakes. Per RN: Pt continues to have good intakes and still sips ONS. Finishes ~25% of it. Noted ONS intake at 100% on Monday and Monday per chart. Reminded RN that ONS needs refrigeration after being opened. Percent of energy/protein needs met: 86%/85% Burn Absent Trauma Absent GI Symptoms None Current % PO Fair (50-74%) Minimum of two criteria No #2 Nutrition Diagnosis Inadequate oral intake As Evidenced by Signs and Symptoms estimating pt meeting >75% of energy and protein needs on average Diagnosis Progress(for reassessment Improved documentation) #1 Nutrition Diagnosis Limited adherence to nutrition -related recommendations Diagnosis Progress(for reassessment Resolved documentation) Is patient on ventilator? No Is Patient Ambulatory and/or Out of Bed No [facility] [phone] Calculation Used for Recommendations [facility] Additional Notes Pro needs: 74-89g/day (1-1.2g/ kg) Fluid needs: 1ml/kcal Nutrition Intervention Change Diet Order: continue Add Supplement/Snack (indicate name/kcal Glucerna daily /protein ) Provides kCal: 220 Provides Protein (gm) 10 Goal #1 Meet at least 75% of energy and protein needs Anticipated Discharge Needs: CHO-controlled diet Follow-Up By: 07/23/20 Additional Comments F/u stable intakes and ONS acceptance.
[2020-07-19] MEDS: ACETAMINOPHEN 325 MG TAB PO PRN (21:36)
[2020-07-20] MEDS: traZODone 50 MG TAB PO SCH ×2 (05:06→22:08)
[2020-07-20] MEDS: LEVOTHYROXINE 112 MCG TAB PO SCH (05:46)
[2020-07-20] MEDS: INSULIN NPH/REGULAR 70/30 INJ SUB-Q SCH ×2 (09:12→19:25)
[2020-07-20] MEDS: PANTOPRAZOLE 40 MG TAB PO SCH ×3 (09:13→17:45)
[2020-07-20] MEDS: FOLIC ACID 1 MG TAB PO SCH (09:13)
[2020-07-20] MEDS: DIVALPROEX DR 250 MG TAB PO SCH ×2 (09:13→22:08)
[2020-07-20] MEDS: SODIUM CHLORIDE 1 GM TAB PO SCH ×2 (09:14→22:08)
[2020-07-20] MEDS: FUROSEMIDE 20 MG TAB PO SCH (09:14)
[2020-07-20] MEDS: INSULIN LISPRO 100 UNIT/ML VIAL 3 mL SUB-Q SCH ×3 (09:27→17:46)
--- NOTE | 2020-07-20 18:42 | Progress Note ---
Assessment and Plan Assessment and plan: ---Poorly controlled Diabetes mellitus type 2 Continue sliding scale insulin, HbA1c 9.5, increase Novolin 70/30 dose Endocrinology follow up in the office after discharge --Acute respiratory failure with hypoxia Likely from PNA vs CHF exacerbation, Continue oxygen supplementation 07/03. Chest xray shows scarring of the left lobe with no clear pneumonia or pulmonary edema NM lung scan -ve for PE. , Echo with 45% EF --Acute CHFrEF exacerbation s/p lasix iv, patient now appears compensated consulted cardiology, Echo with 45% EF, monitor ins/ox, daily wt ---Leucocytosis, resolved Possibly from steroids but procalcitonin is elevated and he is hypoxic Completed 5 days of empirical antibiotics with Rocephin, off steroid ordered CT chest, abdomen and pelvis with IV contrast to evaluate Patient refused ---Hyponatremia resolved --Sinus Tachycardia likely from respiratory failure. cont to follow ---Hypothyroidism (acquired) cont synthroid , normal TSH and T4 ---Upper GI bleed Has dark tarry stool as per RN, cont PPI Stool +ve guaiac. GI recommend endoscopy, patient refused ---Rheumatoid arthritis Methotrexate weekly, off steroid for now ---HTN (hypertension) Lisinopril 5 mg daily ---Schizophrenia, paranoid type Management as per psych --dementia with behavioral changes, continue supportive care --Diarrhea, on Imodium, patient already on Flagyl DVT prophylaxis - heparin Closely monitor the patient and adjust the management as needed Plan of care reviewed with the patient's nurse and case management 07/11: planned to d/c today. patient's planning to appeal the discharge. BP at low 90s. Will reduce the dose of Lasix, continue to monitor 07/12: Blood pressure remains low, will stop Lasix. Patient appears compensated now. Will consider IV fluid if BP remains low. Patient discharge is being hold as planned for appeal. 07/13: Patient's appealed for the discharge. campaign marketing manager working on discharge planning. 07/14: discharge pending on appeal and family decision. 07/15: family decided for SNF placement - [facility] working on placement 07/16; patient is medically stable for discharge awaiting SNF placement level 2 07/17; medically stable, awaiting placement 07/18; awaiting placement. Level 2 07/19; patient stable awaiting placement 07/20; uncontrolled blood sugars, adjust insulin levels, awaiting placement History Interval history: I have seen and examined the patient at the bedside Patient's chart and medications reviewed Patient's blood sugars are uncontrolled Alert and awake responding appropriately Vital signs noted Hospitalist Physical - Constitutional Vitals: Temp Pulse Resp BP Pulse Ox 98.7 F 115 H 16 127/71 94 07/20/20 08:18 07/20/20 08:18 07/20/20 08:18 07/20/20 08:18 07/20/20 08:18 General appearance: Present: no acute distress, well-nourished, other (Agitated wants to go home) - EENT Eyes: Present: PERRL, EOM intact - Neck Neck: Present: supple, normal ROM - Respiratory Respiratory effort: normal Respiratory: bilateral: diminished, negative: rales, rhonchi, wheezing - Cardiovascular Rhythm: regular Heart Sounds: Present: S1 & S2 - Extremities Extremities: no ischemia, No edema - Abdominal General gastrointestinal: soft, non-tender, non-distended, normal bowel sounds - Integumentary Integumentary: Present: clear, warm - Psychiatric Psychiatric: appropriate mood/affect, cooperative - Neurologic Neurologic: moves all extremities Results - Labs CBC & Chem 7: 07/19/20 04:12 07/19/20 04:12 Labs: Laboratory Last Values WBC 8.2 K/mm3 (4.5-11.0) 07/19/20 04:12 RBC 3.13 M/mm3 (3.65-5.03) L 07/19/20 04:12 Hgb 10.3 gm/dl (11.8-15.2) L 07/19/20 04:12 Hct 31.8 % (35.5-45.6) L 07/19/20 04:12 MCV 102 fl (84-94) H 07/19/20 04:12 MCH 33 pg (28-32) H 07/19/20 04:12 MCHC 32 % (32-34) 07/19/20 04:12 RDW 14.7 % (13.2-15.2) 07/19/20 04:12 Plt Count 258 K/mm3 (140-440) 07/19/20 04:12 Lymph % (Auto) 30.6 % (13.4-35.0) 07/19/20 04:12 [place] % (Auto) 12.4 % (0.0-7.3) H 07/19/20 04:12 Eos % (Auto) 0.6 % (0.0-4.3) 07/19/20 04:12 Baso % (Auto) 1.1 % (0.0-1.8) 07/19/20 04:12 Lymph # (Auto) 2.5 K/mm3 (1.2-5.4) 07/19/20 04:12 [place] # (Auto) 1.0 K/mm3 (0.0-0.8) H 07/19/20 04:12 Eos # (Auto) 0.1 K/mm3 (0.0-0.4) 07/19/20 04:12 Baso # (Auto) 0.1 K/mm3 (0.0-0.1) 07/19/20 04:12 Add Manual Diff Complete 07/11/20 00:30 Total Counted 100 07/11/20 00:30 Seg Neutrophils % 55.3 % (40.0-70.0) 07/19/20 04:12 Seg Neuts % (Manual) 56.0 % (40.0-70.0) 07/11/20 00:30 Band Neutrophils % 0 % 07/11/20 00:30 Lymphocytes % (Manual) 30.0 % (13.4-35.0) 07/11/20 00:30 Reactive Lymphs % (Man) 0 % 07/11/20 00:30 Monocytes % (Manual) 10.0 % (0.0-7.3) H 07/11/20 00:30 Eosinophils % (Manual) 4.0 % (0.0-4.3) 07/11/20 00:30 Basophils % (Manual) 0 % (0.0-1.8) 07/11/20 00:30 Metamyelocytes % 0 % 07/11/20 00:30 Myelocytes % 0 % 07/11/20 00:30 Promyelocytes % 0 % 07/11/20 00:30 Blast Cells % 0 % 07/11/20 00:30 Nucleated RBC % Not Reportable 07/11/20 00:30 Seg Neutrophils # 4.5 K/mm3 (1.8-7.7) 07/19/20 04:12 Seg Neutrophils # Man 6.4 K/mm3 (1.8-7.7) 07/11/20 00:30 Band Neutrophils # 0.0 K/mm3 07/11/20 00:30 Lymphocytes # (Manual) 3.5 K/mm3 (1.2-5.4) 07/11/20 00:30 Abs React Lymphs (Man) 0.0 K/mm3 07/11/20 00:30 Monocytes # (Manual) 1.2 K/mm3 (0.0-0.8) H 07/11/20 00:30 Eosinophils # (Manual) 0.5 K/mm3 (0.0-0.4) H 07/11/20 00:30 Basophils # (Manual) 0.0 K/mm3 (0.0-0.1) 07/11/20 00:30 Metamyelocytes # 0.0 K/mm3 07/11/20 00:30 Myelocytes # 0.0 K/mm3 07/11/20 00:30 Promyelocytes # 0.0 K/mm3 07/11/20 00:30 Blast Cells # 0.0 K/mm3 07/11/20 00:30 WBC Morphology Not Reportable 07/11/20 00:30 Hypersegmented Neuts Not Reportable 07/11/20 00:30 Hyposegmented Neuts Not Reportable 07/11/20 00:30 Hypogranular Neuts Not Reportable 07/11/20 00:30 Smudge Cells Not Reportable 07/11/20 00:30 Toxic Granulation Not Reportable 07/11/20 00:30 Toxic Vacuolation Not Reportable 07/11/20 00:30 Dohle Bodies Not Reportable 07/11/20 00:30 Pelger-Huet Anomaly Not Reportable 07/11/20 00:30 Faiza Rods Not Reportable 07/11/20 00:30 Platelet Estimate Consistent w auto 07/11/20 00:30 Clumped Platelets Not Reportable 07/11/20 00:30 Plt Clumps, EDTA Not Reportable 07/11/20 00:30 Large Platelets Not Reportable 07/11/20 00:30 Giant Platelets Not Reportable 07/11/20 00:30 Platelet Satelliting Not Reportable 07/11/20 00:30 Plt Morphology Comment Not Reportable 07/11/20 00:30 RBC Morphology Not Reportable 07/11/20 00:30 Dimorphic RBCs Not Reportable 07/11/20 00:30 Polychromasia Not Reportable 07/11/20 00:30 Hypochromasia Not Reportable 07/11/20 00:30 Poikilocytosis Not Reportable 07/11/20 00:30 Anisocytosis Few 07/11/20 00:30 Microcytosis Not Reportable 07/11/20 00:30 Macrocytosis Not Reportable 07/11/20 00:30 Spherocytes Not Reportable 07/11/20 00:30 Pappenheimer Bodies Not Reportable 07/11/20 00:30 Sickle Cells Not Reportable 07/11/20 00:30 Target Cells Not Reportable 07/11/20 00:30 Tear Drop Cells Not Reportable 07/11/20 00:30 Ovalocytes Not Reportable 07/11/20 00:30 Helmet Cells Not Reportable 07/11/20 00:30 [place] Bodies Not Reportable 07/11/20 00:30 [place] Rings Not Reportable 07/11/20 00:30 Mears Cells Few 07/11/20 00:30 Bite Cells Not Reportable 07/11/20 00:30 Crenated Cell Not Reportable 07/11/20 00:30 Elliptocytes Not Reportable 07/11/20 00:30 Acanthocytes (Spur) Not Reportable 07/11/20 00:30 Rouleaux Not Reportable 07/11/20 00:30 Hemoglobin C Crystals Not Reportable 07/11/20 00:30 Schistocytes Not Reportable 07/11/20 00:30 Malaria parasites Not Reportable 07/11/20 00:30 Jakob Bodies Not Reportable 07/11/20 00:30 Hem Pathologist Commnt No 07/11/20 00:30 PT 14.8 Sec. (12.2-14.9) 07/05/20 00:48 INR 1.15 (0.87-1.13) H 07/05/20 00:48 ABG pH 7.392 (7.320-7.450) 07/05/20 20:45 POC ABG pCO2 32.1 mmHg (32.0-48.0) 07/05/20 20:45 POC ABG pO2 107.4 mmHg (83-108) 07/05/20 20:45 POC ABG HCO3 19.1 07/05/20 20:45 POC ABG Base Excess -4.9 07/05/20 20:45 ABG Hemoglobin 12.7 (12.0-17.5) 07/05/20 20:45 ABG Oxyhemoglobin 97.2 (94-98) 07/05/20 20:45 ABG Methemoglobin 0.3 (0.0-1.5) 07/05/20 20:45 Carboxyhemoglobin 0.4 (0.5-1.5) L 07/05/20 20:45 FiO2 40 07/05/20 20:45 Sodium 139 mmol/L (137-145) 07/19/20 04:12 Potassium 4.0 mmol/L (3.6-5.0) 07/19/20 04:12 Chloride 101.0 mmol/L (98-107) 07/19/20 04:12 Carbon Dioxide 27 mmol/L (22-30) 07/19/20 04:12 Anion Gap 15 mmol/L 07/19/20 04:12 BUN 17 mg/dL (9-20) 07/19/20 04:12 Creatinine 0.7 mg/dL (0.8-1.3) L 07/19/20 04:12 Estimated GFR > 60 ml/min 07/19/20 04:12 BUN/Creatinine Ratio 24 % 07/19/20 04:12 Glucose 304 mg/dL (75-100) H 07/19/20 04:12 POC Glucose 65 (70-105) L 07/20/20 17:31 Hemoglobin A1c 8.6 % (4-6) H 07/12/20 06:44 Osmolality 291 Mosm/kg 07/06/20 13:47 Calcium 8.5 mg/dL (8.4-10.2) 07/19/20 04:12 Magnesium 1.70 mg/dL (1.7-2.3) 07/09/20 10:27 Total Bilirubin 0.30 mg/dL (0.1-1.2) 07/09/20 00:26 AST 23 units/L (5-40) 07/09/20 00:26 ALT 22 units/L (7-56) 07/09/20 00:26 Alkaline Phosphatase 63 units/L (35-129) 07/09/20 00:26 NT-Pro-B Natriuret Pep 2870 pg/mL (0-900) H 07/05/20 00:48 Total Protein 5.6 g/dL (6.3-8.2) L 07/09/20 00:26 Albumin 3.6 g/dL (3.9-5) L 07/09/20 00:26 Albumin/Globulin Ratio 1.8 % 07/09/20 00:26 Vitamin B12 1460 pg/mL (211-911) H 07/06/20 01:00 Folate 12.59 ng/mL (7.3-26.0) 07/06/20 01:00 Procalcitonin 0.17 ng/mL (<0.15) 07/08/20 05:47 TSH 0.375 mlU/mL (0.270-4.200) 07/08/20 20:26 Free T4 0.80 ng/dL (0.76-1.46) 07/08/20 20:26 Urine Eosinophils None seen (None Seen) 07/05/20 14:15 Urine Osmolality 591 Mosm/kg 07/06/20 12:41 Urine Creatinine 54.8 mg/dL (0.1-20.0) H 07/05/20 14:15 Protein/Creatinin Ratio 0.35 07/05/20 14:15 Urine Total Protein 19 mg/dL (5-11.8) H 07/05/20 14:15 Coronavirus (PCR) Negative (Negative) 07/17/20 09:08 - Diagnostic Impressions Diagnostic Impressions: Echocardiogram 07/04/20 16:16 Transthoracic Echocardiogram Indication: CHF BP: 123/69 Conclusions *THE PT IS TACHYCARDIC *EF 45-50% *MILD LVH *DIASTOLIC FUNCTION COULD NOT BE DETERMINED *AORTIC VALVE: MINIMAL STENOSIS MILD AI *R. HEART STRUCTURES NOT SEEN WELL *CONSIDER AMEENA Findings Left Ventricle: The left ventricular chamber size is normal. Mild concentric left ventricular hypertrophy is observed. There is diffuse global hypokinesis of the left ventricle. The estimated ejection fraction is 45-50%. Left Atrium: The left atrial chamber size is normal. Right Ventricle: The right ventricular cavity size is normal. The right ventricular global systolic function is normal. Right Atrium: The right atrial cavity size is normal. Aortic Valve: The aortic valve is trileaflet. There is mild thickening of the left coronary cusp. There is mild thickening of the right coronary cusp. There is mild thickening of the non coronary cusp. Systolic excursion of the aortic valve cusps is reduced. Moderate aortic cusp sclerosis is present. There is mild aortic regurgitation. There is mild aortic stenosis. Mitral Valve: The mitral valve leaflets appear normal. There is mild mitral regurgitation. Tricuspid Valve: The tricuspid valve leaflets are normal. There is trace tricuspid regurgitation. Pulmonic Valve: The pulmonic valve appears normal. There is trace pulmonic regurgitation. Pericardium: The pericardium appears normal. Aorta: There is no dilatation of the aortic root. Measurements Chambers 2D Name Value Normal Range IVSd (2D) 1.12 cm (0.6 - 1.1) LVPWd (2D) 1.11 cm (0.6 - 1.1) LVIDd (2D) 4.72 cm (3.7 - 5.6) LVIDs (2D) 4.15 cm (2 - 3.8) LV FS (2D) 12.13 % - EF Teichholz (2D) 26.22 % - Ao root diameter (2D) 3.58 cm (2 - 3.7) Volumes/Mass Name Value Normal Range LA ESV SP 4CH (A/L) 23.85 ml - LA ESV SP 2CH (A/L) 20.96 ml - LA ESV BP (A/L) 25.83 ml - LA ESV SP 4CH (MOD) 21.59 ml - LA ESV SP 2CH (MOD) 20.26 ml - LV EDV SP 4CH (MOD) 87.92 ml - LV ESV SP 4CH (MOD) 37.48 ml - EF SP 4CH (MOD) 57.37 % - LV EDV SP 2CH (MOD) 25.91 ml - LV ESV SP 2CH (MOD) 17.03 ml - EF SP 2CH (MOD) 34.27 % - LV EDV BP 54.13 ml - LV ESV BP 27.72 ml - BP EF (MOD) 48.79 % - Aortic Valve Name Value Normal Range AV Vmax 1.16 m/sec - AV VTI 16.08 cm - AV peak gradient 5.34 mmHg - AV mean gradient 2.54 mmHg - LVOT diameter 2.41 cm - LVOT Vmax 1.1 m/sec - LVOT VTI 13.43 cm - LVOT peak gradient 4.8 mmHg - LVOT mean gradient 1.8 mmHg - SV LVOT 61.45 ml - SYED (continuity Vmax) 4.34 cm2 - SYED (continuity VTI) 3.82 cm2 - AR PHT 359.99 msec - AR peak gradient 42.29 mmHg - Pulmonic Valve/Qp:Qs Name Value Normal Range PV Vmax 1.01 m/sec - PV peak gradient 4.07 mmHg - MA end-diastolic Vmax 1.36 m/sec - PV acceleration time 110.37 msec - Hollis/IV: Voiding Method Incontinent IV Catheter Type [Left Forearm INT / Saline Lock ] IV Catheter Type [Right Hand] Peripheral IV IV Catheter Type [Right INT / Saline Lock Antecubital] Active Medications - Current Medications Current Medications: Generic Name Dose Route Start Last Admin Trade Name Freq PRN Reason Stop Dose Admin Acetaminophen 650 mg 07/04/20 16:08 07/19/20 21:36 Tylenol PO 650 mg Q4H PRN Administration Pain MILD(1-3)/Fever >100.5/DUMONT Dextrose 50 ml 07/05/20 11:24 07/16/20 21:47 D50w (25gm) Syringe IV 50 ml Q30MIN PRN Administration Hypoglycemia Protocol Diphenoxylate HCl/Atropine 1 tab 07/12/20 15:48 07/16/20 16:35 Lomotil PO 1 tab Q6H PRN Administration Diarrhea Divalproex Sodium 250 mg 07/05/20 10:00 07/20/20 09:[address] PO 250 mg BID NYLA Administration Folic Acid 1 mg 07/16/20 10:00 07/20/20 09:13 Folvite PO 1 mg DAILY NYLA Administration Furosemide 20 mg 07/12/20 10:00 07/20/20 09:14 Lasix PO 20 mg DAILY NYLA Administration Insulin Human Isoph/Insulin Regular 15 unit 07/19/20 19:33 07/20/20 09:12 Humulin 70/30 SUB-Q 15 unit BIDDIAB NYLA Administration Insulin Human Lispro 0 unit 07/17/20 07:00 07/20/20 17:46 Humalog SUB-Q Not Given AC [facility] Protocol Levothyroxine Sodium 112 mcg 07/07/20 10:00 07/20/20 05:46 Synthroid PO 112 mcg DAILY@0600 NYLA Administration Olanzapine 7.5 mg 07/05/20 10:00 07/20/20 10:36 Zyprexa PO 7.5 mg QDAY NYLA Administration Ondansetron HCl 4 mg 07/04/20 16:08 07/05/20 10:38 Zofran IV 4 mg Q8H PRN Administration Nausea And Vomiting Pantoprazole Sodium 40 mg 07/08/20 11:00 07/20/20 17:45 Protonix PO 40 mg BIDAC NYLA Administration Sodium Chloride 10 ml 07/04/20 22:00 07/20/20 09:15 Sodium Chloride Flush Syringe 10 Ml IV 10 ml BID NYLA Administration Sodium Chloride 10 ml 07/04/20 16:08 07/09/20 04:01 Sodium Chloride Flush Syringe 10 Ml IV 10 ml PRN PRN Administration LINE FLUSH Sodium Chloride 1 gm 07/06/20 16:47 07/20/20 09:14 Sodium Chloride PO 1 gm BID NYLA Administration Trazodone HCl 50 mg 07/05/20 22:00 07/20/20 05:06 Desyrel PO Not Given QHS [facility] Nutrition/Malnutrition Assess - Dietary Evaluation Nutrition/Malnutrition Findings: Nutrition Notes Start: 07/06/20 10:29 Freq: Status: Active Protocol: Document 07/16/20 12:05 FRANKI (Rec: 07/16/20 12:15 FRANKI [id number]) Co-Sign 07/16/20 12:05 LP Nutrition Notes Initial or Follow up Reassessment Current Diagnosis Diabetes,Hypertension Other Pertinent Diagnosis Acute resp failure, tachycardia, RA, paranoid schizophrenia Current Diet Consistent CHO Labs/Tests Reviewed Pertinent Medications Reviewed Height 5 ft 6 in Weight 74.6 kg [place] Body Weight (kg) 64.54 BMI 26.5 Weight change and time frame Wt gain noted Weight Status Appropriate Subjective/Other Information F/u intakes. Per RN: Pt continues to have good intakes and still sips ONS. Finishes ~25% of it. Noted ONS intake at 100% on Monday and Monday per chart. Reminded RN that ONS needs refrigeration after being opened. Percent of energy/protein needs met: 86%/85% Burn Absent Trauma Absent GI Symptoms None Current % PO Fair (50-74%) Minimum of two criteria No #2 Nutrition Diagnosis Inadequate oral intake As Evidenced by Signs and Symptoms estimating pt meeting >75% of energy and protein needs on average Diagnosis Progress(for reassessment Improved documentation) #1 Nutrition Diagnosis Limited adherence to nutrition -related recommendations Diagnosis Progress(for reassessment Resolved documentation) Is patient on ventilator? No Is Patient Ambulatory and/or Out of Bed No REE-([place]-St. Jeor-confined to bed) [phone] Calculation Used for Recommendations [facility] Additional Notes Pro needs: 74-89g/day (1-1.2g/ kg) Fluid needs: 1ml/kcal Nutrition Intervention Change Diet Order: continue Add Supplement/Snack (indicate name/kcal Glucerna daily /protein ) Provides kCal: 220 Provides Protein (gm) 10 Goal #1 Meet at least 75% of energy and protein needs Anticipated Discharge Needs: CHO-controlled diet Follow-Up By: 07/23/20 Additional Comments F/u stable intakes and ONS acceptance.
[2020-07-21] MEDS: LEVOTHYROXINE 112 MCG TAB PO SCH (06:27)
[2020-07-21] MEDS ORDERED: INSULIN NPH/REGULAR 70/30 INJ SUB-Q SCH ×2 (08:00→14:00)
[2020-07-21 08:16] VITALS: BP 113/73
[2020-07-21] MEDS: INSULIN LISPRO 100 UNIT/ML VIAL 3 mL SUB-Q SCH ×2 (12:01→14:35)
[2020-07-21] MEDS: PANTOPRAZOLE 40 MG TAB PO SCH (12:01)
[2020-07-21] MEDS: DIVALPROEX DR 250 MG TAB PO SCH (12:01)
[2020-07-21] MEDS: FUROSEMIDE 20 MG TAB PO SCH (12:01)
[2020-07-21] MEDS: FOLIC ACID 1 MG TAB PO SCH (12:01)
[2020-07-21] MEDS: SODIUM CHLORIDE 1 GM TAB PO SCH (13:10)
--- NOTE | 2020-07-21 13:25 | Discharge Summary ---
Providers - Providers Date of Admission: 07/04/20 17:22 Date of discharge: 07/21/20 Attending physician: APPLE MORAN 07/04/20 16:11 Consult to Mental Health [CONS] Routine Reason For Exam: Schizophrenia 07/05/20 11:24 Consult to Dietitian/Nutrition [CONS] Routine Physician Instructions: Reason For Exam: Reason for Consult: Diet education 07/06/20 07:50 Physical Therapy Evaluation and Treat [CONS] Routine Comment: Reason For Exam: Debility 07/06/20 12:48 Consult to Physician [CONS] Routine Comment: Consulting Provider: PAUL WALTER Physician Instructions: Reason For Exam: GI bleed with drop in Hb 07/07/20 09:38 Consult to Physician [CONS] Routine Comment: Consulting Provider: GURPREET APARICIO Physician Instructions: Reason For Exam: leukocytosis 07/09/20 11:28 Consult to Mental Health [CONS] Routine Reason For Exam: AMS 07/10/20 09:06 Consult to Case Management [CONS] Routine Services Needed at Discharge: Other Notified:: HEALTHCARE ECONOMICS MANAGER Additional Physician Instructions: placement Primary care physician: DIRECTOR OF PHILANTHROPY Hospitalization Reason for admission: Worsening shortness of breath/acute hypoxic respiratory failure Pertinent studies: NM lung scan -ve for PE. , Echo with 45% EF Chest x-ray; scarring Hospital course: 76 year old with a medical history of HTN, Hypothyroidism, RA, Schizophrenia who is being admitted from psych unit with complaints of shortness of breath. He was initially admitted to the psych unit due to his psych condition but he de veloped shortness of breath and then admitted to medicine floor. Patient was extensively worked up and evaluated by cardiology, infectious diseases and psych Medications optimized, patient symptoms slowly but gradually improved, patient has history of schizophrenia, noncompliant with medications And refuses meds at times, blood pressures are poorly controlled as patient refuses insulin. 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 GI recommend endoscopy, patient refused ---Rheumatoid arthritis Methotrexate weekly, off steroid , as needed may resume ---HTN (hypertension); well controlled ---Schizophrenia, paranoid type Management as per psych --dementia with behavioral changes, continue supportive care --Diarrhea; resolved Patient is hemodynamically and clinically stable at discharge Disposition: DC/[place]-03 SNF [facility] Time spent for discharge: 35 min Core Measure Documentation - Palliative Care Palliative Care/ Comfort Measures: Not Applicable - Core Measures Any of the following diagnoses?: none Exam - Constitutional Vitals: Temp Pulse Resp BP Pulse Ox 98.8 F 110 H 18 113/73 96 07/21/20 07:39 07/21/20 07:39 07/21/20 07:39 07/21/20 07:39 07/21/20 07:39 General appearance: Present: no acute distress, well-nourished - EENT Eyes: Present: PERRL, EOM intact - Neck Neck: Present: supple, normal ROM - Respiratory Respiratory effort: normal Respiratory: bilateral: diminished, negative: rales, rhonchi, wheezing - Cardiovascular Rhythm: regular Heart Sounds: Present: S1 & S2 - Extremities Extremities: no ischemia, No edema - Abdominal General gastrointestinal: Present: soft, non-tender, non-distended, normal bowel sounds - Integumentary Integumentary: Present: clear, warm - Musculoskeletal Musculoskeletal: strength equal bilaterally, generalized weakness - Psychiatric Psychiatric: appropriate mood/affect, cooperative - Neurologic Neurologic: CNII-XII intact, moves all extremities Plan Activity: advance as tolerated, fall precautions Diet: diabetic Follow up with: PRIMARY CARE, [Primary Care Provider] - 7 Days Prescriptions: Aspirin EC 81 mg PO QDAY #[address] [Depakote Dr] 250 mg PO BID #60 tablet traZODone [Desyrel] 50 mg PO QHS #30 tablet Lispro Insulin [HumaLOG] 15 unit SQ QAC #1 vial Insulin Glargine [Lantus VIAL] 30 units SUB-Q QHS #1 vial Pantoprazole [Protonix TAB] 40 mg PO BIDAC #60 tablet OLANzapine [ZyPREXA] 7.5 mg PO QDAY #30 tablet
== END 2020-07-21 15:47 | disposition home or self-care (01) | DRG 291 ==
LOC: UNDOADMIN 12:38 → 4A 12:38
PROVIDERS: ADMIT Internal Medicine; ATTEND Internal Medicine
PROC: 4A033R1 Measurement of Arterial Saturation, Peripheral, Percutaneous Approach (ICD-10-PCS; principal; 2020-07-05)
DX: I11.0 Hypertensive heart disease with heart failure (principal); J96.01 Acute respiratory failure with hypoxia; N17.0 Acute kidney failure with tubular necrosis; I50.21 Acute systolic (congestive) heart failure; E87.1 Hypo-osmolality and hyponatremia; F20.0 Paranoid schizophrenia; K92.2 Gastrointestinal hemorrhage, unspecified; G93.40 Encephalopathy, unspecified; F03.91 Unspecified dementia, unspecified severity, with behavioral disturbance; D69.6 Thrombocytopenia, unspecified; Z20.828 Contact with and (suspected) exposure to other viral communicable diseases; M06.9 Rheumatoid arthritis, unspecified; E03.9 Hypothyroidism, unspecified; E11.65 Type 2 diabetes mellitus with hyperglycemia; D72.829 Elevated white blood cell count, unspecified; E87.6 Hypokalemia; R19.7 Diarrhea, unspecified; Z88.8 Allergy status to other drugs, medicaments and biological substances; Z79.4 Long term (current) use of insulin
CPT/HCPCS: 36415; 36600; 71045; 76770; 78580; 80048; 80051; 80053; 82270; 82570; 82607; 82747; 82805; 82947; 82962; 83036; 83735; 83880; 83930; 83935; 84145; 84156; 84439; 84443; 85007; 85025; 85027; 85610; 87040; 89050; 93306; 93970; 94760; G0378; A9540; C9113; J0696; J1644; J1815; J1940; J2270; J2405; J2543; J7030; J7050; U0003-CS